=== PATIENT | male | born 1970 | race Caucasian/White ===

== ENCOUNTER 2022-10-10 12:51 | Inpatient (IN) ==
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
[2022-10-10 13:41] LABS: POC Calcium, Ionized 1.16 (1.16-1.32); POC Creatinine 0.5 (0.6-1.2); POC Potassium 4.1 (3.3-5.1)
[2022-10-10 14:12] LABS: Basophils # (Auto) 0.03 K/mcL (0.00-0.30); Basophils % (Auto) 0.2 % (0.0-2.0); Eosinophils # (Auto) 0.16 K/mcL (0.00-0.70); Eosinophils % (Auto) 1.3 % (0.0-7.0); Hematocrit 36.5 % (40.1-51.0); Hemoglobin 11.6 g/dL (13.7-17.5); Lymphocytes % (Auto) 5.8 % (15.5-49.0); Mean Cell Volume 92.4 fL (80.0-100.0); Mean Corpuscular HGB Conc 31.8 g/dL (31.0-36.0); Monocytes # (Auto) 0.64 K/mcL (0.10-0.90); Monocytes % (Auto) 5.3 % (1.0-12.0); Neutrophils % (Auto) 87.1 % (38.0-78.0); Platelet Count 388 K/mcL (140-440); RBC 3.95 M/mcL (4.63-6.08); Red Cell Distribution Width 16.1 % (11.5-14.5)
[2022-10-10 14:21] LABS: Erythrocyte Sedimentation Rate 73 mm/hr (0-20)
--- NOTE | 2022-10-10 14:28 | XRay Report ---
CLINICAL INFORMATION: Pain COMPARISON: 09/26/2022 FINDINGS: Total knee prostheses is anatomically aligned without loosening or infection. Moderate effusion present patellofemoral tibiofemoral joints with prepatellar soft tissue swelling. No osseous abnormality. IMPRESSION: Moderate effusion with prepatellar soft tissue swelling. Interpreted and Authenticated by: Alexandro Godfrey 10/10/22
[2022-10-10] MEDS ORDERED: 0.9 % SODIUM CHLORIDE 1,000 ML IV ONE (14:41)
[2022-10-10] MEDS ORDERED: ONDANSETRON 4 MG/2 ML VIAL IV PRN ×2 (16:43→22:16)
[2022-10-10] MEDS ORDERED: METHOCARBAMOL 1,000 MG/10 ML VIAL IV PRN ×2 (16:43→22:16)
[2022-10-10] MEDS ORDERED: LORazepam 2 MG/ML VIAL IV ONE (16:58)
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
[2022-10-10] MEDS: IPRATROPIUM/ALBUTEROL 3 ML AMPUL.NEB NEB PRN (20:02)
[2022-10-10] MEDS ORDERED: EPINEPHrine 1 MG/ML VIAL ONE (20:28)
[2022-10-10] MEDS ORDERED: ePHEDrine 50 MG/5 ML SYRINGE (ANEST) IV ONE (20:28)
[2022-10-10] MEDS ORDERED: DEXAMETHASONE 10 MG/ML VIAL ONE (20:28)
[2022-10-10] MEDS ORDERED: HYDROmorphone* 2 MG/ML VIAL ONE (20:28)
[2022-10-10] MEDS ORDERED: MIDAZOLAM 2 MG/2 ML VIAL ONE (20:28)
[2022-10-10] MEDS ORDERED: fentaNYL 100 MCG/2 ML VIAL IV ONE (20:28)
[2022-10-10] MEDS ORDERED: MAGNESIUM SULFATE 2 GM/50 ML BAG IV ONE (20:28)
[2022-10-10] MEDS ORDERED: KETAMINE 50 MG/ML Syringe (ANEST) IV ONE (20:28)
[2022-10-10] MEDS ORDERED: SUCCINYLCHOLINE 20 MG/ML ML IV ONE (20:28)
[2022-10-10] MEDS ORDERED: TRANEXAMIC ACID 1,000 MG/10 ML VIAL ONE ×2 (20:28→23:19)
[2022-10-10] MEDS ORDERED: LIDOCAINE HCL/PF 100 MG/5 ML SYRINGE IV ONE (20:28)
[2022-10-10] MEDS ORDERED: PHENYLephrine 1 MG/10 ML SYRINGE (ANEST) ONE (20:28)
[2022-10-10] MEDS ORDERED: ONDANSETRON 4 MG/2 ML VIAL ONE (20:28)
[2022-10-10] MEDS ORDERED: PROPOFOL 200 MG/20 ML VIAL IV ONE (20:28)
[2022-10-10] MEDS ORDERED: GLYCOPYRROLATE 0.2 MG/ML VIAL IV ONE (20:28)
[2022-10-10] MEDS ORDERED: VANCOMYCIN 1,000 MG in 0.9 % SODIUM CHLORIDE 250 ML IV ONE (20:53)
[2022-10-10] MEDS ORDERED: TOBRAMYCIN SULFATE 1.2 GM VIAL TOPICAL ONE (21:53)
[2022-10-10] MEDS ORDERED: VANCOMYCIN 1 GM VIAL TOPICAL SCH ×2 (22:00→22:15)
[2022-10-10] MEDS ORDERED: MEPERIDINE 25 MG/ML VIAL IV PRN (22:16)
[2022-10-10] MEDS ORDERED: fentaNYL 100 MCG/2 ML VIAL IV PRN (22:16)
[2022-10-10] MEDS ORDERED: FLUMAZENIL 0.1 MG/ML ML IV PRN (22:16)
[2022-10-10] MEDS ORDERED: LABETALOL 5 MG/ML ML IV PRN (22:16)
[2022-10-10] MEDS ORDERED: ACETAMINOPHEN 1,000 MG/100 ML BAG IV ONE ×2 (22:16→23:08)
[2022-10-10] MEDS ORDERED: LACTATED RINGERS 250 ML IV PRN (22:16)
[2022-10-10] MEDS ORDERED: IPRATROPIUM/ALBUTEROL 3 ML AMPUL.NEB NEB PRN (22:16)
[2022-10-10] MEDS ORDERED: METOPROLOL TARTRATE 5 MG/5 ML VIAL IV PRN (22:16)
[2022-10-10] MEDS ORDERED: NALOXONE HCL 0.4 MG/ML VIAL IV PRN (22:16)
[2022-10-10] MEDS ORDERED: HYDROmorphone 0.5 MG/0.5 ML SYRINGE IV PRN (22:16)
--- NOTE | 2022-10-10 22:23 | Brief Operative Note ---
Brief Operative Note Date of procedure: 10/10/22 Pre-op diagnosis: right total knee arthroplasty infection Post-op diagnosis: same Procedure: right total knee arthroplasty irrigation/debridement, poly exchanged, antibiotic bead placement Grafts/Implants: Yes Anesthesia: GETA and spinal Findings: infected total joint Complications: other Complications Description: cardiac arrest at induction Surgeon: Darrell Rivera Take Up Supervisor: [place] Perry Estimated blood loss (cc): 5 Tourniquet Time (Minutes): 75 Specimens Removed/Pathology: none sent Condition: stable Disposition: PACU
[2022-10-10] MEDS ORDERED: BISACODYL 10 MG SUPP.RECT PR PRN (22:30)
[2022-10-10] MEDS ORDERED: TRANEXAMIC ACID 1,000 MG/10 ML VIAL IV ONE (22:30)
[2022-10-10] MEDS ORDERED: LACTATED RINGERS 1,000 ML IV SCH (22:30)
[2022-10-10] MEDS ORDERED: FLEETS ADULT ENEMA PR PRN (22:30)
[2022-10-10] MEDS ORDERED: MAGNESIUM HYDROXIDE 30 ML ORAL.SUSP PO PRN (22:30)
[2022-10-10] MEDS ORDERED: POLYETHYLENE GLYCOL 3350 17 GM PACKET PO PRN (22:30)
[2022-10-10] MEDS ORDERED: BENZOCAINE/MENTHOL 1 LOZENGE PO PRN (22:30)
[2022-10-10] MEDS ORDERED: VANCOMYCIN PER PHARMACY IV ONE (22:36)
[2022-10-10] MEDS ORDERED: LORazepam 2 MG/ML VIAL IV PRN (22:38)
[2022-10-10] MEDS ORDERED: ALBUTEROL SULFATE 60 PUFF INHALER IH PRN (22:39)
[2022-10-10] MEDS ORDERED: ACETAMINOPHEN 500 MG TABLET PO PRN (22:39)
[2022-10-10] MEDS: ACETAMINOPHEN 500 MG TABLET PO SCH (23:17)
[2022-10-11] MEDS: 0.9 % SODIUM CHLORIDE 10 ML SYRINGE IV SCH ×7 (01:22→21:43)
[2022-10-11] MEDS: HYDROmorphone 1 MG/ML SYRINGE IV PRN ×4 (01:46→11:24)
[2022-10-11] MEDS: LACTATED RINGERS 1,000 ML IV SCH ×4 (01:55→19:12)
--- NOTE | 2022-10-11 01:55 | XRay Report ---
CLINICAL INFORMATION: Cardiorespiratory arrest COMPARISON: None. TECHNIQUE: Portable FINDINGS: Heart is markedly enlarged. Mediastinum is unremarkable. Pulmonary vessels are equivocally distended-film taken with suboptimal inspiratory result. Mild perihilar airspace disease noted. There is minor bibasilar atelectasis. No effusions. MALUNIFIED old mid right clavicular fracture noted. IMPRESSION: Marked cardiomegaly. Mild perihilar airspace disease may represent edema from CHF or developing ARDS Interpreted and Authenticated by: Alexandro Godfrey 10/11/22
--- NOTE | 2022-10-11 01:57 | XRay Report ---
CLINICAL INFORMATION: Increasing pain. COMPARISON: Postoperative knee film 10/10/2022 FINDINGS: Total knee prostheses are anatomically aligned without loosening. Multiple antibiotic beads now present in the patellofemoral and tibiofemoral joints following drainage of effusion. Septic arthritis is presumed. Periarticular soft tissue swelling noted. IMPRESSION: Postoperative changes as described Interpreted and Authenticated by: Alexandro Godfrey 10/11/22
[2022-10-11 02:27] LABS: Basophils # (Auto) 0.01 K/mcL (0.00-0.30); Basophils % (Auto) 0.1 % (0.0-2.0); Eosinophils # (Auto) 0.01 K/mcL (0.00-0.70); Eosinophils % (Auto) 0.1 % (0.0-7.0); Hematocrit 33.1 % (40.1-51.0); Hemoglobin 10.7 g/dL (13.7-17.5); Lymphocytes # (Auto) 0.48 K/mcL (1.50-4.80); Lymphocytes % (Auto) 3.4 % (15.5-49.0); Mean Corpuscular HGB Conc 32.3 g/dL (31.0-36.0); Monocytes # (Auto) 0.41 K/mcL (0.10-0.90); Monocytes % (Auto) 2.9 % (1.0-12.0); Neutrophils % (Auto) 92.9 % (38.0-78.0); Platelet Count 395 K/mcL (140-440); RBC 3.56 M/mcL (4.63-6.08); Red Cell Distribution Width 16.2 % (11.5-14.5)
[2022-10-11 02:43] LABS: ALT/SGPT 38 U/L (<40); AST/SGOT 57 U/L (<40); Albumin 3.4 gm/dL (3.2-5.2); Albumin/Globulin Ratio 0.9 (1.0-2.3); Alkaline Phosphatase 128 U/L (39-117); Bilirubin,Total 0.4 mg/dL (0.1-1.0); Blood Urea Nitrogen 18 mg/dL (6-20); Calcium 8.7 mg/dL (8.6-10.4); Carbon Dioxide 22 mmol/L (22-30); Chloride 96 mmol/L (96-108); Globulin 3.9 gm/dL (2.2-3.7); Glomerular Filtration Rate 69; Glucose 185 mg/dL (70-105)
[2022-10-11] MEDS ORDERED: LORazepam 2 MG/ML VIAL ONE (04:46)
[2022-10-11] MEDS ORDERED: LORazepam 2 MG/ML VIAL IV PRN (04:47)
[2022-10-11] MEDS ORDERED: VANCOMYCIN PER PHARMACY IV SCH (06:45)
--- NOTE | 2022-10-11 07:34 | Orthopedic Progress Note ---
SUBJECTIVE Subjective Patient information: Note initiated : 10/11/22 at 7:30 am Service Date, if different from initiated Date: [] Patient: Leonides Jenkins 52 y/o M admitted on 10/10/22 for increased knee pain. Chief Complaint: [no events overnight] Constitutional Vitals: Vital Signs Temp Pulse Resp BP Pulse Ox O2 Del Method O2 Flow Rate 97.7 F 78 18 111/88 98 Oxymask 5 10/11/22 04:01 10/11/22 06:09 10/11/22 06:09 10/11/22 06:01 10/11/22 06:09 10/11/22 06:01 10/11/22 06:01 Period Temp Pulse Resp BP Sys/Ward Pulse Ox O2 Del Method O2 Flow Rate Last 24 Hr 97.7 F-101.0 F 78-107 14-27 97-148/60-95 90-100 Nasal Cannula- Room Air 5-10 Intake and Output 10/10/22 10/11/22 10/11/22 19:59 03:59 11:59 Intake Total 1000 2150 Output Total 680 400 Balance 1000 1470 -400 Weight 244 lb 14.4 oz Intake & Output: Intake & Output 10/10/22 10/11/22 10/11/22 19:59 03:59 11:59 Intake Total 1000 2150 Output Total 680 400 Balance 1000 1470 -400 Weight 244 lb 14.4 oz Intake: IV 1000 350 Sodium Chloride 0.9% 1,000 ml @ 1000 Wide Open IV BOLUS ONE Rx#: [id number] Vancomycin 1,000 mg In Sodium 250 Chloride 0.9% 250 ml @ 250 mls/ hr IV ONCE ONE Rx#:[id number] IV - Manual Only 1800 Output: Urine Catheter Amount 650 400 Estimated Blood Loss 30 Other: Urine Appearance Clear Clear Uretheral (San) Clear Urine Color Yellow Yellow Uretheral (San) Yellow Additional findings Additional findings: asleep and will not wake up. right knee: dressing clean, dry and intact. foot warm well perfused OBJ DATA Labs 10/11/22 01:47 10/11/22 01:47 Labs: Abnormal Lab Results 10/11/22 10/11/22 10/11/22 01:47 01:47 01:47 WBC 14.0 H RBC 3.56 L Hgb 10.7 L Hct 33.1 L POC Hct RDW 16.2 H Immature Gran % (Auto) 0.6 H Neut % (Auto) 92.9 H Lymph % (Auto) 3.4 L Lymph # (Auto) 0.48 L Immature Gran # 0.09 H Absolute Neutrophils 12.98 H ESR Sodium 132 L POC Creatinine Glucose 185 H POC Glucose AST 57 H Alkaline Phosphatase 128 H Troponin T 0.04 H* C-Reactive Protein Globulin 3.9 H Albumin/Globulin Ratio 0.9 L 10/10/22 10/10/22 10/10/22 13:36 13:31 13:31 WBC 12.0 H RBC 3.95 L Hgb 11.6 L Hct 36.5 L POC Hct 38.0 L RDW 16.1 H Immature Gran % (Auto) Neut % (Auto) 87.1 H Lymph % (Auto) 5.8 L Lymph # (Auto) 0.70 L Immature Gran # Absolute Neutrophils 10.45 H ESR 73 H Sodium POC Creatinine 0.5 L Glucose POC Glucose 147 H AST Alkaline Phosphatase Troponin T C-Reactive Protein 29.70 H Globulin Albumin/Globulin Ratio Meds: Medications Acetaminophen (Acetaminophen 500 Mg Tablet) 1,000 mg PO Q8H JAYJAY; Protocol Last Admin: 10/10/22 23:17 Dose: Not Given Albuterol Sulfate (Albuterol Sulfate 60 Puff Inhaler) 2 puff IH Q4HP PRN PRN Reason: for dyspnea Albuterol/Ipratropium (Ipratropium/Albuterol 3 Ml Ampul.Neb) 3 ml NEB Q4HP PRN PRN Reason: Shortness Of Breath/ Pre-op Last Admin: 10/10/22 20:02 Dose: 3 ml Aspirin (Aspirin 81 Mg Tab.Chew) 81 mg CHEWED BID [facility] Bisacodyl (Bisacodyl 10 Mg Supp.Rect) 10 mg TX Q2-3DAYS PRN PRN Reason: Constipation Docusate Sodium (Docusate Sodium 100 Mg Capsule) 100 mg PO BID [facility] Duloxetine HCl (Duloxetine 30 Mg Capsule) 30 mg PO QDAY [facility] Hydrochlorothiazide (Hydrochlorothiazide 12.5 Mg Capsule) 12.5 mg PO DAILY [facility] Hydromorphone HCl (Hydromorphone 1 Mg/Ml Syringe) 0.5 - 2 mg IV Q2HP PRN; Protocol PRN Reason: Per Pain Protocol Last Admin: 10/11/22 03:54 Dose: 1 mg Hydroxyzine HCl (Hydroxyzine 25 Mg Tablet) 50 mg PO HS [facility] Lactated Ringer's (Lactated Ringers) 1,000 mls @ 100 mls/hr IV .Q10H [facility] Last Admin: 10/11/22 01:55 Dose: 100 mls/hr Vancomycin HCl 1,500 mg/ (Sodium Chloride) 500 mls @ 333.3 mls/hr IV Q12H [facility] Lisinopril (Lisinopril 20 Mg Tablet) 20 mg PO DAILY JAYJAY Lorazepam (Lorazepam 2 Mg/Ml Vial) 0 mg IV Q1HP PRN; Protocol PRN Reason: Alcohol Withdrawal/Assess CIWA Magnesium Hydroxide (Magnesium Hydroxide 30 Ml Oral.Susp) 30 ml PO BIDP PRN PRN Reason: Constipation Methocarbamol (Methocarbamol 750 Mg Tablet) 750 mg PO Q6HP PRN PRN Reason: Muscle Spasm Omeprazole (Omeprazole 20 Mg Capsule) 20 mg PO QAMAC [facility] Ondansetron HCl (Ondansetron 4 Mg/2 Ml Vial) 4 mg IV Q4HP PRN; Protocol PRN Reason: Nausea And Vomiting Oxycodone HCl (Oxycodone Hcl 5 Mg Tablet) 10 - 20 mg PO Q4HP PRN; Protocol PRN Reason: Pain Polyethylene Glycol (Polyethylene Glycol 3350 17 Gm Packet) 17 gm PO DAILYP PRN PRN Reason: Constipation Senna (Sennosides 1 Tablet) 2 tab PO HS [facility] Sodium Biphosphate/Sodium Phosphate (Fleets Adult Enema) 1 dose TX Q3-4DAYS PRN PRN Reason: Constipation Sodium Chloride (0.9 % Sodium Chloride 10 Ml Syringe) 10 ml IV Q8 [facility] Last Admin: 10/11/22 05:28 Dose: Not Given Sodium Chloride (0.9 % Sodium Chloride 10 Ml Syringe) 10 ml IV Q8 [facility] Last Admin: 10/11/22 05:35 Dose: 10 ml Throat Lozenges (Benzocaine/Menthol 1 Lozenge) 1 lozenge PO PRN PRN PRN Reason: Sore Throat Vancomycin HCl (Vancomycin Per Pharmacy) 1 order IV UD [facility]; Protocol A/P Assessment and plan (1) Postoperative infection of knee: Assessment and plan: POD 1 s/p I&D right total knee arthroplasty infection, poly exchange, antibiotic bead placement -- weight bearing with walker only. No aggressive ROM -- IV antibiotics- vancomycin. cultures are not in the system but multiple sets taken. Will f/u on them as this dictates treatment -- CIWA protocol reason for patient sleeping this AM -- Hospitalist consulted to manage medical aspect as patient did have cardiac arrest in the OR. will f/u with them today --dispo: pending Status: Acute Time Spent With Patient Time: Total time spent is greater than 50% in coordination of care (as documented) at patient's floor/unit and/or counseling patient:
[2022-10-11] MEDS: ACETAMINOPHEN 500 MG TABLET PO SCH ×3 (07:46→21:42)
[2022-10-11] MEDS: OMEPRAZOLE 20 MG CAPSULE PO SCH (07:46)
[2022-10-11] MEDS ORDERED: VANCOMYCIN 1,000 MG in 0.9 % SODIUM CHLORIDE 250 ML IV SCH (09:00)
[2022-10-11] MEDS ORDERED: LISINOPRIL/HCTZ 20/12.5MG TABLET PO SCH (09:00)
[2022-10-11 09:12] LABS: Appearance,Synovial Fluid Cloudy; Color,Synovial Fluid Orange; Lymphocytes,Synovial Fluid 3 %; Neutrophils,Synovial Fluid 93 % (0-25); Nucleated Cells,Synovial Fld 95520 /cumm; Other Cells,Synovial Fluid 4 %
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
[2022-10-11] MEDS ORDERED: IOPAMIDOL 100 ML BOTTLE IV ONE (09:29)
[2022-10-11] MEDS: LISINOPRIL 20 MG TABLET PO SCH (10:11)
[2022-10-11] MEDS: DULoxetine 30 MG CAPSULE PO SCH (10:11)
[2022-10-11] MEDS: VANCOMYCIN 1,500 MG in 0.9 % SODIUM CHLORIDE 500 ML IV SCH ×2 (10:11→21:43)
[2022-10-11] MEDS: DOCUSATE SODIUM 100 MG CAPSULE PO SCH ×2 (10:11→21:42)
[2022-10-11] MEDS: ASPIRIN 81 MG TAB.CHEW CHEWED SCH ×2 (10:11→21:41)
[2022-10-11] MEDS: HYDROCHLOROTHIAZIDE 12.5 MG CAPSULE PO SCH (10:11)
--- NOTE | 2022-10-11 10:28 | Cat Scan Report ---
CLINICAL INFORMATION: Cardiac arrest COMPARISON: None. TECHNIQUE: 80ml of Isovue-370 were injected intravenously. Using SmartPrep to maximize pulmonary artery opacification, .625mm helical slices were obtained from the lung apices through the lung bases. Following reconstruction, 2.5 mm sagittal, coronal, and axial reformations were processed. The exam was reviewed at mediastinal, lung, and bone windows. The exam was performed using radiation dose optimization techniques including, but not limited to, automated exposure control, adjustment of the mA and/or kV according to patient size and use of iterative reconstruction technique. FINDINGS: Pulmonary parenchymal windows show vague perihilar groundglass airspace disease suspicious for edema. Small region of consolidated atelectasis is seen in the posterior right lower lobe and subsegmental atelectasis in the posterior right lower lobe. Small right pleural effusion noted. Mediastinal windows show the heart is moderately enlarged with extremely heavy fibrofatty and calcific plaque in all coronary arteries suggesting occlusive or subocclusive coronary artery disease. The pulmonary arteries are mildly enlarged suggesting congestive heart failure. No evidence of pulmonary embolus. Thoracic aorta is normal in diameter. There is no adenopathy in the mediastinal, hilar or axillary region. Small hiatal hernia noted.. Thyroid is unremarkable. Bones and soft tissues the chest wall show no abnormality. show no osseous abnormalities. Images should superior abdomen are unremarkable. IMPRESSION: 1. Mild perihilar edema with moderate cardiomegaly and pulmonary vascular congestion all compatible with mild CHF. ARDS and aspiration are possible, but less likely. Please correlate with other clinical information supportive or refutive of CHF including BNP. 2. Consolidated atelectasis posterior basilar segment right lower lobe with subsegmental atelectasis throughout the posterior lower lobes with small right pleural effusion. 3. No evidence of pulmonary embolus. 4. 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 5. Moderate eventration posterior right hemidiaphragm. Interpreted and Authenticated by: Alexandro Godfrey 10/11/22
--- NOTE | 2022-10-11 10:38 | Cat Scan Report ---
CLINICAL INFORMATION: Abdominal pain. Cardiac arrest COMPARISON: None. TECHNIQUE: 80 cc of Isovue-370 were injected intravenously, and 60 seconds later, 0.625 mm helical slices were obtained from the mid heart through the subtrochanteric regions. Following reconstruction, 2.5 mm sagittal, coronal and axial reformatted images were processed and reviewed at bone, lung and soft tissue windows. Five minutes later, 0.625 mm helical slices were obtained from the mid heart through the kidneys and viewed at soft tissue windows.The exam was performed using radiation dose optimization techniques including, but not limited to, automated exposure control, adjustment of the mA and/or kV according to patient size and use of iterative reconstruction technique. FINDINGS: The gallbladder is mildly contracted with a small amount of sludge layering dependently. Gallbladder wall is normal thickness. Mild fatty change seen within the liver, but no focal hepatic lesions. Both kidneys, adrenal glands, spleen, pancreas are normal in size configuration and attenuation without focal lesion. The abdominal aorta is normal diameter with atherosclerotic plaque. 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 The patient be at risk for median arcuate ligament syndrome. The SMA, ANAHI, renal and iliac arteries are patent. No free air, free fluid or adenopathy. Pelvic images show San catheter properly positioned in the urinary bladder which is decompressed. No gross bladder abnormalities. The prostate and seminal vesicles are normal. There are multiple sigmoid diverticuli, but no evidence of diverticulitis. The remaining large bowel, inferior pericecal appendix, small bowel and stomach are grossly normal Bone windows show no osseous abnormality. L5-S1 moderate broad disc spur complex results in moderate IV foraminal narrowing exiting L5 nerve root impingement. Similar although less severe changes seen at L3-4 L4-5. IMPRESSION: 1. No acute intra-abdominal disease. 2. 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 Patient is at risk for median arcuate ligament syndrome. 3. Sigmoid diverticulosis, but no evidence of diverticulitis. Interpreted and Authenticated by: Alexandro Godfrey 10/11/22
[2022-10-11] MEDS: oxyCODONE IR 5 MG TABLET PO PRN ×3 (12:41→21:42)
[2022-10-11] MEDS: METHOCARBAMOL 750 MG TABLET PO PRN ×2 (12:41→21:48)
--- NOTE | 2022-10-11 13:36 | Internal Medicine Consult Note ---
HPI Date of Consult Consult Date: 10/11/22 Requesting physician: Vamsi Rivera Primary Care Provider: Geetha Garcia Consult Narrative Patient Information: Note initiated : 10/11/22 at 1:32 pm Service Date, if different from initiated Date: [] Patient: Leonides Jenkins 52 y/o M admitted on 10/10/22 for increased knee pain. Chief Complaint: [Cardiac arrest] 52-year-old obese male with a past medical history significant for hypertension, anxiety/depression, and alcohol abuse who presented to the hospital for elective surgery. The patient underwent right total knee arthroplasty, irrigation, and debridement with polyliner exchange and antibiotic bead placement. Postoperatively, after anesthesia induction, he briefly went into PEA arrest requiring cardiopulmonary resuscitation with ROSC. He was extubated overnight and this morning he was alert, oriented x3. Family were present at the bedside. The patient denies chest pain, shortness of breath or palpitations. There were concerns for mild alcohol withdrawal as he was placed on CIWA protocol and did receive Ativan. The hospitalist service was asked to consult to help medically manage the patient. Chief complaint: Post-op LOC Reason for consult: Cardiac arrest cc:: CC: Darrell Rivera MD Review of Systems All systems: reviewed and no additional remarkable complaints except as stated Constitutional Constitutional: Present as per HPI EENT Eyes: Present as per HPI; Absent blurry vision Cardiovascular Cardiovascular: Present as per HPI; Absent chest pain, dyspnea, dyspnea on exertion, leg edema or palpatations Respiratory Respiratory: Present as per HPI; Absent cough, dyspnea, dyspnea on exertion, wheezing or stridor Gastrointestinal Gastrointestinal: Present as per HPI; Absent abdominal pain, diarrhea, dysphagia, hematemesis, melena, nausea or vomiting Musculoskeletal Musculoskeletal: Present as per HPI; Absent joint swelling, limited range of motion, muscle cramps, muscle weakness or myalgias Integumentary Integumentary: Present as per HPI; Absent erythema, new lesions, rash or wounds Neurological Neurological: Present as per HPI; Absent abnormal gait, behavioral changes, focal weakness, headache(s), loss of vision, numbness, sensory deficit or syncope Endocrine Endocrine: Absent change in body appearance, fatigue or heat intolerance Hematologic/Lymphatic Hematologic/Lymphatic: Present as per HPI PFSH PFSH All Active Problems (Updated 10/11/22 @ 13:40 by Mamta Mejia MD) Alcohol withdrawal (Acute) Cardiac arrest (Acute) Postop check (Acute) Post-operative pain (Acute) Postoperative hemorrhage from incision (Acute) Acute knee pain (Acute) Postoperative infection of knee (Acute) Bilateral knee pain (Acute) Low back pain (Acute) Allergic reaction (Acute) Back pain (Acute) Other low back pain (Chronic) Depression (Chronic) Anxiety (Chronic) Gout (Chronic) Radiculopathy, lumbar region (Acute) Chronic pain (Chronic) Obesity (Chronic) Leg pain, left (Chronic) GERD (gastroesophageal reflux disease) (Chronic) Chronic right shoulder pain (Chronic) Chronic knee pain (Chronic) Chronic back pain (Chronic) Cellulitis of left index finger (Chronic) Cellulitis of left hand (Chronic) Cellulitis (Chronic) Carpal tunnel syndrome of right wrist (Chronic) Cardiac murmur (Chronic) Allergic reaction (Chronic) Arthritis (Chronic) Hypertension (Chronic) Asthma (Chronic) Hayfever (Chronic) Medical History Allergic reaction Anxiety Arthritis Asthma Cardiac murmur Carpal tunnel syndrome of right wrist Cellulitis Cellulitis of left hand Cellulitis of left index finger Chronic back pain Chronic knee pain Chronic pain Chronic right shoulder pain Depression GERD (gastroesophageal reflux disease) Gout Hayfever Hypertension Leg pain, left Obesity Other low back pain Radiculopathy, lumbar region Surgical History History of incision and drainage and partial amputation of fingers left hand due to abscess History of knee surgery History of shoulder surgery left Family History Grandmother Dementia Maternal Father High blood pressure Chronic pain Social History marital status: single education level: high school occupational status: employed occupation: Self Employed smoking status: Never smoker alcohol intake frequency: does not drink substance use type: marijuana MEDS/ALLERGIES Home Medications and Allergies Home Medications Medication Instructions Recorded Confirmed Type hydroxyzine HCl 50 mg tablet 50 mg PO HS #30 tabs 02/13/22 10/10/22 Rx clobetasol 0.05 % topical cream 1 applic topical BID #60 grams 03/20/22 10/10/22 Rx albuterol sulfate 90 mcg/actuation 2 puff PO Q4H PRN for dyspnea #8.5 03/27/22 10/10/22 Rx aerosol inhaler grams lisinopril 20 1 tab PO DAILY #90 tabs 04/13/22 10/10/22 Rx mg-hydrochlorothiazide 12.5 mg tablet omeprazole 20 mg capsule,delayed 20 mg PO QDAY #90 caps 04/13/22 10/10/22 Rx release multivitamin 1 tab PO QDAY 04/30/22 10/10/22 History omega 0-lke-bri-fish oil 1,200 mg 1 cap PO DAILY 04/30/22 10/10/22 History (144 mg-216 mg) capsule (Fish Oil) docusate sodium 100 mg capsule 100 mg PO BID #60 caps 05/12/22 10/10/22 Rx polyethylene glycol 3350 17 gram 17 gm PO DAILYP PRN Constipation 05/12/22 10/10/22 Rx oral powder packet (HealthyLax) #14 ea Liver Support 1 cap PO QDAY 08/31/22 10/10/22 History acetaminophen 500 mg tablet 1,000 mg PO Q8 PRN Pain 08/31/22 10/10/22 History duloxetine 30 mg capsule,delayed 30 mg PO QDAY 08/31/22 10/10/22 History release methocarbamol 500 mg tablet 500 mg PO TIDP PRN Muscle Spasm 09/06/22 10/10/22 Rx #30 tabs oxycodone 7.5 mg tablet,oral ONLY 7.5 - 15 mg PO Q4H PRN pain #60 ea 09/07/22 10/10/22 Rx (not for feeding tubes) hydrocodone 5 mg-acetaminophen 325 1 tab PO Q8H PRN pain #10 tabs 09/21/22 10/10/22 Rx mg tablet hydrocodone 5 mg-acetaminophen 325 1 tab PO Q8H PRN pain #10 tabs 09/21/22 10/10/22 Rx mg tablet Aspirin 81 mg PO DAILY 10/10/22 10/10/22 History Allergies Allergy/AdvReac Type Severity Reaction Status Date / Time Amoxicillin Allergy Mild Rash Verified 10/10/22 16:50 Nortriptyline AdvReac Mild Dizziness Verified 09/21/22 19:56 EXAM Constitutional Vitals: Temp Pulse Resp BP Pulse Ox O2 Del Method O2 Flow Rate 98 F 83 20 121/86 95 Oxymask 5 10/11/22 08:42 10/11/22 08:42 10/11/22 08:42 10/11/22 07:01 10/11/22 08:42 10/11/22 06:01 10/11/22 06:01 General appearance: average body habitus Head Head exam: Present atraumatic, normal inspection and normocephalic Eye Eye exam: Present EOMI, normal appearance and PERRL; Absent conjunctival injection ENT ENT exam: Present normal exam; Absent mucous membranes dry Neck Neck exam: Present full ROM; Absent lymphadenopathy Respiratory Respiratory exam: Present normal respiratory exam and CTAB; Absent decreased breath sounds, respiratory distress or wheezes Cardiovascular Cardiovascular exam: Present normal rate and rhythm and RRR; Absent JVD GI/Abdominal GI/Abdominal exam: Present normal bowel sounds and soft; Absent diminished bowel sounds, distended, guarding, mass, rebound or tenderness Neurological Exam Neurological exam: Present alert, CN II-XII intact and oriented X3 Psychiatric Psychiatric exam: Present normal affect and normal mood Skin Skin exam: Present intact and warm; Absent erythema, pallor, petechiae or rash DATA Data Completed and Pending Labs: Labs from last 24 hours 10/11/22 10/11/22 10/11/22 01:47 01:47 01:47 WBC 14.0 H RBC 3.56 L Hgb 10.7 L Hct 33.1 L POC Hct MCV 93.0 MCH 30.1 MCHC 32.3 RDW 16.2 H Plt Count 395 MPV 9.0 Immature Gran % (Auto) 0.6 H Neut % (Auto) 92.9 H Lymph % (Auto) 3.4 L [place] % (Auto) 2.9 Eos % (Auto) 0.1 Baso % (Auto) 0.1 Lymph # (Auto) 0.48 L [place] # (Auto) 0.41 Eos # (Auto) 0.01 Baso # (Auto) 0.01 Immature Gran # 0.09 H Absolute Neutrophils 12.98 H ESR POC Sodium Sodium 132 L POC Potassium Potassium 4.6 POC Chloride Chloride 96 Carbon Dioxide 22 POC Total CO2 Anion Gap 14.0 POC BUN BUN 18 Creatinine 1.2 POC Creatinine GFR Calculation 69 Glucose 185 H POC Glucose Calcium 8.7 POC WB Ioniz Calcium Total Bilirubin 0.4 AST 57 H ALT 38 Alkaline Phosphatase 128 H Troponin T 0.04 H* C-Reactive Protein Total Protein 7.3 Albumin 3.4 Globulin 3.9 H Albumin/Globulin Ratio 0.9 L Synovial Source Synovial Color Synovial Appearance Synovial Tot Cell Ct Synovial Nuc Cells Synovial Neutrophils Synovial Lymphocytes Synovial Other Cells 10/10/22 10/10/22 10/10/22 21:12 13:36 13:31 WBC RBC Hgb Hct POC Hct 38.0 L MCV MCH MCHC RDW Plt Count MPV Immature Gran % (Auto) Neut % (Auto) Lymph % (Auto) [place] % (Auto) Eos % (Auto) Baso % (Auto) Lymph # (Auto) [place] # (Auto) Eos # (Auto) Baso # (Auto) Immature Gran # Absolute Neutrophils ESR POC Sodium 137 Sodium POC Potassium 4.1 Potassium POC Chloride 102 Chloride Carbon Dioxide POC Total CO2 24.0 Anion Gap POC BUN 16 BUN Creatinine POC Creatinine 0.5 L GFR Calculation Glucose POC Glucose 147 H Calcium POC WB Ioniz Calcium 1.16 Total Bilirubin AST ALT Alkaline Phosphatase Troponin T C-Reactive Protein 29.70 H Total Protein Albumin Globulin Albumin/Globulin Ratio Synovial Source Right knee Synovial Color [place] Synovial Appearance Cloudy Synovial Tot Cell Ct 100 Synovial Nuc Cells [id number] Synovial Neutrophils 93 H Synovial Lymphocytes 3 Synovial Other Cells 4 10/10/22 13:31 WBC 12.0 H RBC 3.95 L Hgb 11.6 L Hct 36.5 L POC Hct MCV 92.4 MCH 29.4 MCHC 31.8 RDW 16.1 H Plt Count 388 MPV 9.0 Immature Gran % (Auto) 0.3 Neut % (Auto) 87.1 H Lymph % (Auto) 5.8 L [place] % (Auto) 5.3 Eos % (Auto) 1.3 Baso % (Auto) 0.2 Lymph # (Auto) 0.70 L [place] # (Auto) 0.64 Eos # (Auto) 0.16 Baso # (Auto) 0.03 Immature Gran # 0.04 Absolute Neutrophils 10.45 H ESR 73 H POC Sodium Sodium POC Potassium Potassium POC Chloride Chloride Carbon Dioxide POC Total CO2 Anion Gap POC BUN BUN Creatinine POC Creatinine GFR Calculation Glucose POC Glucose Calcium POC WB Ioniz Calcium Total Bilirubin AST ALT Alkaline Phosphatase Troponin T C-Reactive Protein Total Protein Albumin Globulin Albumin/Globulin Ratio Synovial Source Synovial Color Synovial Appearance Synovial Tot Cell Ct Synovial Nuc Cells Synovial Neutrophils Synovial Lymphocytes Synovial Other Cells Preliminary micro results at discharge 10/10/22 13:39 Gram Stain - Preliminary Knee - Right A/P Assessment and plan (1) Cardiac arrest: Status: Acute (2) Alcohol withdrawal: Status: Acute (3) Post-operative pain: Status: Acute Narrative A/P Narrative: #Cardiac arrest -It is unclear if there is a cardiopulmonary process. The patient did have CTA chest which was negative for PE, or aortic disease. Initial cardiac enzymes were unrevealing. TTE is pending. The patient did drink heavily prior to surgery and this was likely component of withdrawal as the achieve ROSC quite quickly. -Monitor and replete electrolytes aggressively, monitor on telemetry #EtOH abuse -The patient's AST and ALT pattern is consistent with alcohol abuse. We will continue to keep the patient on CIWA protocol #R knee infection -Postoperative care per orthopedic surgery. Time Spent With Patient Time: Total time spent is greater than 50% in coordination of care (as documented) at patient's floor/unit and/or counseling patient: Subsequent: Total time with patient: 50 - 65 Minutes
[2022-10-11] MEDS ORDERED: AZITHROMYCIN 250 MG TABLET PO ONE ×2 (14:00→15:00)
[2022-10-11] MEDS: cefTRIAXone 1 GM VIAL IV SCH (14:19)
[2022-10-11] MEDS: LORazepam 2 MG/ML VIAL IV PRN ×2 (14:39→19:30)
[2022-10-11] MEDS: SENNOSIDES 1 TABLET PO SCH (21:42)
[2022-10-11] MEDS: hydrOXYzine 25 MG TABLET PO SCH (21:47)
[2022-10-12] MEDS: LORazepam 2 MG/ML VIAL IV PRN (03:09)
[2022-10-12] MEDS: oxyCODONE IR 5 MG TABLET PO PRN ×5 (03:14→21:09)
[2022-10-12] MEDS: LACTATED RINGERS 1,000 ML IV SCH ×3 (04:03→23:30)
[2022-10-12] MEDS: 0.9 % SODIUM CHLORIDE 10 ML SYRINGE IV SCH ×8 (04:55→21:10)
[2022-10-12] MEDS: ACETAMINOPHEN 500 MG TABLET PO SCH ×3 (05:14→23:06)
[2022-10-12] MEDS ORDERED: 0.9 % SODIUM CHLORIDE 10 ML SYRINGE IV PRN (06:59)
--- NOTE | 2022-10-12 07:09 | Orthopedic Progress Note ---
SUBJECTIVE Subjective Patient information: Note initiated : 10/12/22 at 7:03 am Service Date, if different from initiated Date: [] Patient: Leonides Jenkins 52 y/o M admitted on 10/10/22 for increased knee pain. Chief Complaint: [transitioned to pcu yesterday. no acute events.] Constitutional Vitals: Vital Signs Temp Pulse Resp BP Pulse Ox O2 Del Method O2 Flow Rate 97.5 F 96 H 19 145/88 96 Oxymask 4 10/12/22 04:01 10/12/22 06:32 10/12/22 06:32 10/12/22 06:01 10/12/22 06:32 10/12/22 06:01 10/12/22 06:01 Period Temp Pulse Resp BP Sys/Ward Pulse Ox O2 Del Method O2 Flow Rate Last 24 Hr 96.2 F-98.3 F 76-96 14-27 88-145/58-88 87-98 Nasal Cannula- Oxymask 1-5 Intake and Output 10/11/22 10/12/22 10/12/22 19:59 03:59 11:59 Intake Total 3020 1900 Output Total 800 800 600 Balance 2220 1100 -600 Weight 244 lb 14.4 oz 256 lb 3.52 oz Intake & Output: Intake & Output 10/11/22 10/12/22 10/12/22 19:59 03:59 11:59 Intake Total 3020 1900 Output Total 800 800 600 Balance 2220 1100 -600 Weight 244 lb 14.4 oz 256 lb 3.52 oz Intake: IV 500 1500 Lactated Ringers 1,000 ml @ 100 1000 mls/hr IV .Q10H [facility] Rx#: [id number] Vancomycin 1,500 mg In Sodium 500 500 Chloride 0.9% 500 ml @ 333.3 mls/hr IV Q12H [facility] Rx#: [id number] Oral 2520 400 Output: Urine Catheter Amount 800 800 600 Other: Meal Dinner Dinner Percent of Meal Consumed 50% 50% Feeding Ability Independent Independent Urine Appearance Cloudy Clear Clear Uretheral (San) Clear Urine Color Light Elizabeth Yellow Yellow Uretheral (San) Light Elizabeth Urine Odor Normal Normal Additional findings Additional findings: asleep, difficult to awake right knee: dressing clean dry and intact. foot warm well perfused. OBJ DATA Labs 10/11/22 01:47 10/11/22 01:47 Labs: Abnormal Lab Results 10/12/22 10/11/22 10/11/22 05:10 01:47 01:47 WBC RBC Hgb Hct POC Hct RDW Immature Gran % (Auto) Neut % (Auto) Lymph % (Auto) Lymph # (Auto) Immature Gran # Absolute Neutrophils ESR Sodium 132 L POC Creatinine Glucose 185 H POC Glucose AST 57 H Alkaline Phosphatase 128 H Troponin T 0.04 H* C-Reactive Protein 23.00 H Globulin 3.9 H Albumin/Globulin Ratio 0.9 L Synovial Neutrophils 10/11/22 10/10/22 10/10/22 01:47 21:12 13:36 WBC 14.0 H RBC 3.56 L Hgb 10.7 L Hct 33.1 L POC Hct 38.0 L RDW 16.2 H Immature Gran % (Auto) 0.6 H Neut % (Auto) 92.9 H Lymph % (Auto) 3.4 L Lymph # (Auto) 0.48 L Immature Gran # 0.09 H Absolute Neutrophils 12.98 H ESR Sodium POC Creatinine 0.5 L Glucose POC Glucose 147 H AST Alkaline Phosphatase Troponin T C-Reactive Protein Globulin Albumin/Globulin Ratio Synovial Neutrophils 93 H 10/10/22 10/10/22 13:31 13:31 WBC 12.0 H RBC 3.95 L Hgb 11.6 L Hct 36.5 L POC Hct RDW 16.1 H Immature Gran % (Auto) Neut % (Auto) 87.1 H Lymph % (Auto) 5.8 L Lymph # (Auto) 0.70 L Immature Gran # Absolute Neutrophils 10.45 H ESR 73 H Sodium POC Creatinine Glucose POC Glucose AST Alkaline Phosphatase Troponin T C-Reactive Protein 29.70 H Globulin Albumin/Globulin Ratio Synovial Neutrophils Meds: Medications Acetaminophen (Acetaminophen 500 Mg Tablet) 1,000 mg PO Q8H [facility]; Protocol Last Admin: 10/12/22 05:14 Dose: 1,000 mg Albuterol Sulfate (Albuterol Sulfate 60 Puff Inhaler) 2 puff IH Q4HP PRN PRN Reason: for dyspnea Albuterol/Ipratropium (Ipratropium/Albuterol 3 Ml Ampul.Neb) 3 ml NEB Q4HP PRN PRN Reason: Shortness Of Breath/ Pre-op Last Admin: 10/10/22 20:02 Dose: 3 ml Aspirin (Aspirin 81 Mg Tab.Chew) 81 mg CHEWED BID [facility] Last Admin: 10/11/22 21:41 Dose: 81 mg Azithromycin (Azithromycin 250 Mg Tablet) 250 mg PO DAILY [facility]; Protocol Stop: 10/15/22 09:01 Bisacodyl (Bisacodyl 10 Mg Supp.Rect) 10 mg NV Q2-3DAYS PRN PRN Reason: Constipation Ceftriaxone Sodium (Ceftriaxone 1 Gm Vial) 1 gm IV Q24H [facility]; Protocol Last Admin: 10/11/22 14:19 Dose: 1 gm Docusate Sodium (Docusate Sodium 100 Mg Capsule) 100 mg PO BID [facility] Last Admin: 10/11/22 21:42 Dose: 100 mg Duloxetine HCl (Duloxetine 30 Mg Capsule) 30 mg PO QDAY [facility] Last Admin: 10/11/22 10:11 Dose: 30 mg Heparin Sodium (Porcine) (Heparin Flush 10 Units/Ml 5 Ml Syringe) 2 ml IV Q12 [facility] Hydrochlorothiazide (Hydrochlorothiazide 12.5 Mg Capsule) 12.5 mg PO DAILY [facility] Last Admin: 10/11/22 10:11 Dose: 12.5 mg Hydromorphone HCl (Hydromorphone 1 Mg/Ml Syringe) 0.5 - 2 mg IV Q2HP PRN; Protocol PRN Reason: Per Pain Protocol Last Admin: 10/11/22 11:24 Dose: 2 mg Hydroxyzine HCl (Hydroxyzine 25 Mg Tablet) 50 mg PO HS [facility] Last Admin: 10/11/22 21:47 Dose: 50 mg Lactated Ringer's (Lactated Ringers) 1,000 mls @ 100 mls/hr IV .Q10H [facility] Last Admin: 10/12/22 04:03 Dose: Not Given Vancomycin HCl 1,500 mg/ (Sodium Chloride) 500 mls @ 333.3 mls/hr IV Q12H [facility] Last Infusion: 10/11/22 23:46 Dose: Infused Lisinopril (Lisinopril 20 Mg Tablet) 20 mg PO DAILY [facility] Last Admin: 10/11/22 10:11 Dose: 20 mg Lorazepam (Lorazepam 2 Mg/Ml Vial) 0 mg IV Q1HP PRN; Protocol PRN Reason: Alcohol Withdrawal/Assess CIWA Last Admin: 10/12/22 03:09 Dose: 4 mg Magnesium Hydroxide (Magnesium Hydroxide 30 Ml Oral.Susp) 30 ml PO BIDP PRN PRN Reason: Constipation Methocarbamol (Methocarbamol 750 Mg Tablet) 750 mg PO Q6HP PRN PRN Reason: Muscle Spasm Last Admin: 10/11/22 21:48 Dose: 750 mg Omeprazole (Omeprazole 20 Mg Capsule) 20 mg PO QAMAC [facility] Last Admin: 10/11/22 07:46 Dose: 20 mg Ondansetron HCl (Ondansetron 4 Mg/2 Ml Vial) 4 mg IV Q4HP PRN; Protocol PRN Reason: Nausea And Vomiting Oxycodone HCl (Oxycodone Hcl 5 Mg Tablet) 10 - 20 mg PO Q4HP PRN; Protocol PRN Reason: Pain Last Admin: 10/12/22 03:14 Dose: 10 mg Polyethylene Glycol (Polyethylene Glycol 3350 17 Gm Packet) 17 gm PO DAILYP PRN PRN Reason: Constipation Senna (Sennosides 1 Tablet) 2 tab PO HS [facility] Last Admin: 10/11/22 21:42 Dose: 2 tab Sodium Biphosphate/Sodium Phosphate (Fleets Adult Enema) 1 dose NV Q3-4DAYS PRN PRN Reason: Constipation Sodium Chloride (0.9 % Sodium Chloride 10 Ml Syringe) 10 ml IV Q8 [facility] Last Admin: 10/12/22 04:55 Dose: Not Given Sodium Chloride (0.9 % Sodium Chloride 10 Ml Syringe) 10 ml IV Q8 [facility] Last Admin: 10/12/22 04:55 Dose: 10 ml Sodium Chloride (0.9 % Sodium Chloride 10 Ml Syringe) 10 ml IV Q12 [facility] Sodium Chloride (0.9 % Sodium Chloride 10 Ml Syringe) 10 ml IV UD PRN PRN Reason: FLUSH Throat Lozenges (Benzocaine/Menthol 1 Lozenge) 1 lozenge PO PRN PRN PRN Reason: Sore Throat Vancomycin HCl (Vancomycin Per Pharmacy) 1 order IV UD [facility]; Protocol A/P Assessment and plan (1) Postoperative infection of knee: Assessment and plan: POD2 s/p I&D total knee arthroplasty infection, poly exchange, antibiotic bead placement -- will make him 50% weight bearing, hinged knee brace with ambulation -- blood culture negative to date, synovial fluid 95K nucleated cells, gram stain with gram positive in clusters --------will have PICC line placed, consult with ID, continue vancomycin for now, follow cultures -- CIWA - alcohol withdrawl -- IV drug use will make disposition bit more complicated as he will have to be placed in rehab for 6 weeks. -- would prefer d/c jackeline if ok with Hospitalist Status: Acute Time Spent With Patient Time: Total time spent is greater than 50% in coordination of care (as documented) at patient's floor/unit and/or counseling patient:
[2022-10-12] MEDS: HYDROCHLOROTHIAZIDE 12.5 MG CAPSULE PO SCH (08:18)
[2022-10-12] MEDS: OMEPRAZOLE 20 MG CAPSULE PO SCH (08:18)
[2022-10-12] MEDS: LISINOPRIL 20 MG TABLET PO SCH (08:18)
[2022-10-12] MEDS: ASPIRIN 81 MG TAB.CHEW CHEWED SCH ×2 (08:18→21:09)
[2022-10-12] MEDS: DOCUSATE SODIUM 100 MG CAPSULE PO SCH ×2 (08:18→21:09)
[2022-10-12] MEDS: AZITHROMYCIN 250 MG TABLET PO SCH (08:18)
[2022-10-12] MEDS: cefTRIAXone 1 GM VIAL IV SCH (08:39)
[2022-10-12] MEDS: DULoxetine 30 MG CAPSULE PO SCH (09:00)
--- NOTE | 2022-10-12 09:23 | Internal Med Progress Note ---
SUBJECTIVE Subjective Patient information: Note initiated : 10/12/22 at 9:21 am Service Date, if different from initiated Date: [] Patient: Leonides Jenkins 52 y/o M admitted on 10/10/22 for increased knee pain. Chief Complaint: [Cardiac arrest] Principal diagnosis: EtOH withdrawal Interval history: The patient was scoring quite high last night. Per my discussion with RN, he has received a total of 8 mg of IV Ativan since yesterday evening. He received 4 mg IV this morning. Discussed the case with the family were present at the bedside. The patient was sedated this morning. Constitutional Vitals: Vital Signs Temp Pulse Resp BP Pulse Ox O2 Del Method O2 Flow Rate 97.5 F 96 H 19 145/88 96 Oxymask 4 10/12/22 04:01 10/12/22 06:32 10/12/22 06:32 10/12/22 06:01 10/12/22 06:32 10/12/22 06:01 10/12/22 06:01 Period Temp Pulse Resp BP Sys/Ward Pulse Ox O2 Del Method O2 Flow Rate Last 24 Hr 96.2 F-98.3 F 76-96 14-27 101-145/64-88 87-98 Nasal Cannula-Oxymask 1-5 Intake and Output 10/11/22 10/12/22 10/12/22 19:59 03:59 11:59 Intake Total 3020 1900 Output Total 800 800 600 Balance 2220 1100 -600 Weight 111.085 kg 116.219 kg Intake & Output: Intake & Output 10/11/22 10/12/22 10/12/22 19:59 03:59 11:59 Intake Total 3020 1900 Output Total 800 800 600 Balance 2220 1100 -600 Weight 111.085 kg 116.219 kg Intake: IV 500 1500 Lactated Ringers 1,000 ml @ 100 1000 mls/hr IV .Q10H [facility] Rx#: [id number] Vancomycin 1,500 mg In Sodium 500 500 Chloride 0.9% 500 ml @ 333.3 mls/hr IV Q12H [facility] Rx#: [id number] Oral 2520 400 Output: Urine Catheter Amount 800 800 600 Other: Meal Dinner Dinner Percent of Meal Consumed 50% 50% Feeding Ability Independent Independent Urine Appearance Cloudy Clear Clear Uretheral (San) Clear Urine Color Light Elizabeth Yellow Yellow Uretheral (San) Light Elizabeth Urine Odor Normal Normal Head Head exam: Present atraumatic and normal inspection Eye Eye exam: Present normal appearance ENT ENT exam: Present mucous membranes moist, normal exam and normal external ear exam Neck Neck exam: Present normal inspection Respiratory Respiratory exam: Present normal respiratory exam Cardiovascular Cardiovascular exam: Present normal rate and rhythm GI/Abdominal GI/Abdominal exam: Present normal bowel sounds Back Exam Back exam: Present normal inspection Neurological Exam Neurological exam: Absent alert Psychiatric Psychiatric exam: Absent agitated or anxious Skin Skin exam: Present intact and warm OBJ DATA Labs 10/11/22 01:47 10/11/22 01:47 Labs: Abnormal Lab Results 10/12/22 10/11/22 10/11/22 05:10 01:47 01:47 WBC RBC Hgb Hct POC Hct RDW Immature Gran % (Auto) Neut % (Auto) Lymph % (Auto) Lymph # (Auto) Immature Gran # Absolute Neutrophils ESR Sodium 132 L POC Creatinine Glucose 185 H POC Glucose AST 57 H Alkaline Phosphatase 128 H Troponin T 0.04 H* C-Reactive Protein 23.00 H Globulin 3.9 H Albumin/Globulin Ratio 0.9 L Synovial Neutrophils 10/11/22 10/10/22 10/10/22 01:47 21:12 13:36 WBC 14.0 H RBC 3.56 L Hgb 10.7 L Hct 33.1 L POC Hct 38.0 L RDW 16.2 H Immature Gran % (Auto) 0.6 H Neut % (Auto) 92.9 H Lymph % (Auto) 3.4 L Lymph # (Auto) 0.48 L Immature Gran # 0.09 H Absolute Neutrophils 12.98 H ESR Sodium POC Creatinine 0.5 L Glucose POC Glucose 147 H AST Alkaline Phosphatase Troponin T C-Reactive Protein Globulin Albumin/Globulin Ratio Synovial Neutrophils 93 H 10/10/22 10/10/22 13:31 13:31 WBC 12.0 H RBC 3.95 L Hgb 11.6 L Hct 36.5 L POC Hct RDW 16.1 H Immature Gran % (Auto) Neut % (Auto) 87.1 H Lymph % (Auto) 5.8 L Lymph # (Auto) 0.70 L Immature Gran # Absolute Neutrophils 10.45 H ESR 73 H Sodium POC Creatinine Glucose POC Glucose AST Alkaline Phosphatase Troponin T C-Reactive Protein 29.70 H Globulin Albumin/Globulin Ratio Synovial Neutrophils Meds: Medications Acetaminophen (Acetaminophen 500 Mg Tablet) 1,000 mg PO Q8H [facility]; Protocol Last Admin: 10/12/22 05:14 Dose: 1,000 mg Albuterol Sulfate (Albuterol Sulfate 60 Puff Inhaler) 2 puff IH Q4HP PRN PRN Reason: for dyspnea Albuterol/Ipratropium (Ipratropium/Albuterol 3 Ml Ampul.Neb) 3 ml NEB Q4HP PRN PRN Reason: Shortness Of Breath/ Pre-op Last Admin: 10/10/22 20:02 Dose: 3 ml Aspirin (Aspirin 81 Mg Tab.Chew) 81 mg CHEWED BID [facility] Last Admin: 10/12/22 08:18 Dose: 81 mg Azithromycin (Azithromycin 250 Mg Tablet) 250 mg PO DAILY [facility]; Protocol Stop: 10/15/22 09:01 Last Admin: 10/12/22 08:18 Dose: 250 mg Bisacodyl (Bisacodyl 10 Mg Supp.Rect) 10 mg OR Q2-3DAYS PRN PRN Reason: Constipation Ceftriaxone Sodium (Ceftriaxone 1 Gm Vial) 1 gm IV Q24H [facility]; Protocol Last Admin: 10/12/22 08:39 Dose: 1 gm Docusate Sodium (Docusate Sodium 100 Mg Capsule) 100 mg PO BID [facility] Last Admin: 10/12/22 08:18 Dose: 100 mg Duloxetine HCl (Duloxetine 30 Mg Capsule) 30 mg PO QDAY [facility] Last Admin: 10/12/22 09:00 Dose: 30 mg Heparin Sodium (Porcine) (Heparin Flush 10 Units/Ml 5 Ml Syringe) 2 ml IV Q12 [facility] Hydrochlorothiazide (Hydrochlorothiazide 12.5 Mg Capsule) 12.5 mg PO DAILY [facility] Last Admin: 10/12/22 08:18 Dose: 12.5 mg Hydromorphone HCl (Hydromorphone 1 Mg/Ml Syringe) 0.5 - 2 mg IV Q2HP PRN; Protocol PRN Reason: Per Pain Protocol Last Admin: 10/11/22 11:24 Dose: 2 mg Hydroxyzine HCl (Hydroxyzine 25 Mg Tablet) 50 mg PO HS [facility] Last Admin: 10/11/22 21:47 Dose: 50 mg Lactated Ringer's (Lactated Ringers) 1,000 mls @ 100 mls/hr IV .Q10H [facility] Last Admin: 10/12/22 04:03 Dose: Not Given Vancomycin HCl 1,500 mg/ (Sodium Chloride) 500 mls @ 333.3 mls/hr IV Q12H [facility] Last Infusion: 10/11/22 23:46 Dose: Infused Lisinopril (Lisinopril 20 Mg Tablet) 20 mg PO DAILY [facility] Last Admin: 10/12/22 08:18 Dose: 20 mg Lorazepam (Lorazepam 2 Mg/Ml Vial) 0 mg IV Q1HP PRN; Protocol PRN Reason: Alcohol Withdrawal/Assess CIWA Last Admin: 10/12/22 03:09 Dose: 4 mg Magnesium Hydroxide (Magnesium Hydroxide 30 Ml Oral.Susp) 30 ml PO BIDP PRN PRN Reason: Constipation Methocarbamol (Methocarbamol 750 Mg Tablet) 750 mg PO Q6HP PRN PRN Reason: Muscle Spasm Last Admin: 10/11/22 21:48 Dose: 750 mg Omeprazole (Omeprazole 20 Mg Capsule) 20 mg PO QAMAC [facility] Last Admin: 10/12/22 08:18 Dose: 20 mg Ondansetron HCl (Ondansetron 4 Mg/2 Ml Vial) 4 mg IV Q4HP PRN; Protocol PRN Reason: Nausea And Vomiting Oxycodone HCl (Oxycodone Hcl 5 Mg Tablet) 10 - 20 mg PO Q4HP PRN; Protocol PRN Reason: Pain Last Admin: 10/12/22 08:18 Dose: 10 mg Polyethylene Glycol (Polyethylene Glycol 3350 17 Gm Packet) 17 gm PO DAILYP PRN PRN Reason: Constipation Senna (Sennosides 1 Tablet) 2 tab PO HS [facility] Last Admin: 10/11/22 21:42 Dose: 2 tab Sodium Biphosphate/Sodium Phosphate (Fleets Adult Enema) 1 dose OR Q3-4DAYS PRN PRN Reason: Constipation Sodium Chloride (0.9 % Sodium Chloride 10 Ml Syringe) 10 ml IV Q8 [facility] Last Admin: 10/12/22 04:55 Dose: Not Given Sodium Chloride (0.9 % Sodium Chloride 10 Ml Syringe) 10 ml IV Q8 [facility] Last Admin: 10/12/22 04:55 Dose: 10 ml Sodium Chloride (0.9 % Sodium Chloride 10 Ml Syringe) 10 ml IV Q12 [facility] Sodium Chloride (0.9 % Sodium Chloride 10 Ml Syringe) 10 ml IV UD PRN PRN Reason: FLUSH Throat Lozenges (Benzocaine/Menthol 1 Lozenge) 1 lozenge PO PRN PRN PRN Reason: Sore Throat Vancomycin HCl (Vancomycin Per Pharmacy) 1 order IV UD [facility]; Protocol A/P Assessment and plan (1) Cardiac arrest: Status: Acute (2) Alcohol withdrawal: Status: Acute (3) Post-operative pain: Status: Acute Narrative A/P Narrative: #Cardiac arrest -CTA chest ruled out PE. TTE did not reveal any evidence of wall motion abnormalities and he has a preserved EF of 65%. -Continue empiric treatment for aspiration pneumonia with ceftriaxone and Zithromax -It is unclear if there is a cardiopulmonary process. The patient did have CTA chest which was negative for PE, or aortic disease. Initial cardiac enzymes were unrevealing. TTE is pending. The patient did drink heavily prior to surgery and this was likely component of withdrawal as the achieve ROSC quite quickly. -Monitor and replete electrolytes aggressively, monitor on telemetry #EtOH abuse -The patient's AST and ALT pattern is consistent with alcohol abuse. We will continue to keep the patient on CIWA protocol #R knee infection -PICC line order was placed and he is continuing vancomycin -Postoperative care per orthopedic surgery. Time Spent With Patient Time: Total time spent is greater than 50% in coordination of care (as documented) at patient's floor/unit and/or counseling patient: Subsequent: Total time with patient: 50 - 65 Minutes QUALITY VTE Deep Vein Thrombosis/Pulmonary Embolism Present on Admission: No
[2022-10-12] MEDS ORDERED: VANCOMYCIN 1,000 MG in 0.9 % SODIUM CHLORIDE 250 ML IV ONE (10:00)
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
[2022-10-12] MEDS: METHOCARBAMOL 750 MG TABLET PO PRN ×2 (15:33→21:09)
[2022-10-12] MEDS: VANCOMYCIN 1,500 MG in 0.9 % SODIUM CHLORIDE 500 ML IV SCH (15:47)
[2022-10-12] MEDS ORDERED: LORazepam 2 MG/ML VIAL IV PRN (17:41)
[2022-10-12] MEDS ORDERED: LORazepam 2 MG/ML VIAL ONE (18:18)
[2022-10-12] MEDS ORDERED: cefTRIAXone 1 GM VIAL IV SCH (20:23)
[2022-10-12] MEDS: SENNOSIDES 1 TABLET PO SCH (21:09)
[2022-10-12] MEDS: hydrOXYzine 25 MG TABLET PO SCH (21:09)
[2022-10-12] MEDS: VANCOMYCIN 1,250 MG in 0.9 % SODIUM CHLORIDE 500 ML IV SCH (21:10)
[2022-10-12] MEDS ORDERED: cefTRIAXone 1 GM VIAL IV ONE (22:15)
[2022-10-13] MEDS: LORazepam 2 MG/ML VIAL IV PRN ×5 (00:01→13:25)
[2022-10-13] MEDS: IPRATROPIUM/ALBUTEROL 3 ML AMPUL.NEB NEB PRN (04:44)
[2022-10-13] MEDS: 0.9 % SODIUM CHLORIDE 10 ML SYRINGE IV SCH ×8 (04:47→20:11)
[2022-10-13] MEDS: ACETAMINOPHEN 500 MG TABLET PO SCH ×6 (05:22→20:11)
[2022-10-13] MEDS: OMEPRAZOLE 20 MG CAPSULE PO SCH (07:39)
[2022-10-13] MEDS: cefTRIAXone 2 GM in DEXTROSE 5% IN WATER 50 ML IV SCH (08:38)
--- NOTE | 2022-10-13 08:51 | Internal Med Progress Note ---
SUBJECTIVE Subjective Patient information: Note initiated : 10/13/22 at 8:49 am Service Date, if different from initiated Date: [] Patient: Leonides Jenkins 52 y/o M admitted on 10/10/22 for increased knee pain. Chief Complaint: [Cardiac arrest] Principal diagnosis: EtOH withdrawal Interval history: The patient was moved out the ICU to [facility]. He remains quite somnolent as he needs IV Ativan for CIWA protocol. He is receiving beer as well. Constitutional Vitals: Vital Signs Temp Pulse Resp BP Pulse Ox O2 Del Method O2 Flow Rate 98.2 F 69 26 H 165/79 93 Oxymask 2 10/13/22 08:46 10/13/22 06:46 10/13/22 08:46 10/13/22 06:46 10/13/22 07:09 10/13/22 07:09 10/13/22 07:09 Period Temp Pulse Resp BP Sys/Ward Pulse Ox O2 Del Method O2 Flow Rate Last 24 Hr 97.3 F-99.5 F 69-90 18-28 162-186/79-108 83-98 Oxymask-Oxymask 2-2 Intake and Output 10/12/22 10/13/22 10/13/22 19:59 03:59 11:59 Intake Total 730 500 Output Total 1775 801 1 Balance -1045 -301 -1 Weight 112.582 kg Intake & Output: Intake & Output 10/12/22 10/13/22 10/13/22 19:59 03:59 11:59 Intake Total 730 500 Output Total 1775 801 1 Balance -1045 -301 -1 Weight 112.582 kg Intake: IV 250 500 Vancomycin 1,000 mg In Sodium 250 Chloride 0.9% 250 ml @ 250 mls/ hr IV ONCE ONE Rx#:[id number] Vancomycin 1,250 mg In Sodium 500 Chloride 0.9% 500 ml @ 333.3 mls/hr IV Q12H [facility] Rx#: [id number] Oral 480 Output: Void Amount 1775 800 # of times incontinent of urine 1 1 Other: Urine Appearance Clear Clear Urine Color Dark Yellow Dark Yellow Yellow Urine Odor Strong Strong # Voids 1 1 Head Head exam: Present atraumatic and normal inspection Eye Eye exam: Present normal appearance ENT ENT exam: Present mucous membranes moist, normal exam and normal external ear exam Neck Neck exam: Present normal inspection Respiratory Respiratory exam: Present normal respiratory exam Cardiovascular Cardiovascular exam: Present normal rate and rhythm GI/Abdominal GI/Abdominal exam: Present normal bowel sounds Back Exam Back exam: Present normal inspection Neurological Exam Neurological exam: Present alert and oriented X3 Skin Skin exam: Present intact and warm OBJ DATA Labs 10/11/22 01:47 10/11/22 01:47 Labs: Abnormal Lab Results 10/12/22 10/11/22 10/11/22 05:10 01:47 01:47 WBC RBC Hgb Hct POC Hct RDW Immature Gran % (Auto) Neut % (Auto) Lymph % (Auto) Lymph # (Auto) Immature Gran # Absolute Neutrophils ESR Sodium 132 L POC Creatinine Glucose 185 H POC Glucose AST 57 H Alkaline Phosphatase 128 H Troponin T 0.04 H* C-Reactive Protein 23.00 H Globulin 3.9 H Albumin/Globulin Ratio 0.9 L Synovial Neutrophils 10/11/22 10/10/22 10/10/22 01:47 21:12 13:36 WBC 14.0 H RBC 3.56 L Hgb 10.7 L Hct 33.1 L POC Hct 38.0 L RDW 16.2 H Immature Gran % (Auto) 0.6 H Neut % (Auto) 92.9 H Lymph % (Auto) 3.4 L Lymph # (Auto) 0.48 L Immature Gran # 0.09 H Absolute Neutrophils 12.98 H ESR Sodium POC Creatinine 0.5 L Glucose POC Glucose 147 H AST Alkaline Phosphatase Troponin T C-Reactive Protein Globulin Albumin/Globulin Ratio Synovial Neutrophils 93 H 10/10/22 10/10/22 13:31 13:31 WBC 12.0 H RBC 3.95 L Hgb 11.6 L Hct 36.5 L POC Hct RDW 16.1 H Immature Gran % (Auto) Neut % (Auto) 87.1 H Lymph % (Auto) 5.8 L Lymph # (Auto) 0.70 L Immature Gran # Absolute Neutrophils 10.45 H ESR 73 H Sodium POC Creatinine Glucose POC Glucose AST Alkaline Phosphatase Troponin T C-Reactive Protein 29.70 H Globulin Albumin/Globulin Ratio Synovial Neutrophils Meds: Medications Acetaminophen (Acetaminophen 500 Mg Tablet) 1,000 mg PO Q8H JAYJAY; Protocol Last Admin: 10/13/22 05:22 Dose: Not Given Acetaminophen (Acetaminophen 325 Mg Tablet) 1,000 mg PO TID JAYJAY; Protocol Albuterol Sulfate (Albuterol Sulfate 60 Puff Inhaler) 2 puff IH Q4HP PRN PRN Reason: for dyspnea Albuterol/Ipratropium (Ipratropium/Albuterol 3 Ml Ampul.Neb) 3 ml NEB Q4HP PRN PRN Reason: Shortness Of Breath/ Pre-op Last Admin: 10/13/22 04:44 Dose: 3 ml Aspirin (Aspirin 81 Mg Tab.Chew) 81 mg CHEWED BID [facility] Last Admin: 10/12/22 21:09 Dose: 81 mg Azithromycin (Azithromycin 250 Mg Tablet) 250 mg PO DAILY [facility]; Protocol Stop: 10/15/22 09:01 Last Admin: 10/12/22 08:18 Dose: 250 mg Bisacodyl (Bisacodyl 10 Mg Supp.Rect) 10 mg AR Q2-3DAYS PRN PRN Reason: Constipation Docusate Sodium (Docusate Sodium 100 Mg Capsule) 100 mg PO BID [facility] Last Admin: 10/12/22 21:09 Dose: 100 mg Duloxetine HCl (Duloxetine 30 Mg Capsule) 30 mg PO QDAY [facility] Last Admin: 10/12/22 09:00 Dose: 30 mg Heparin Sodium (Porcine) (Heparin Flush 10 Units/Ml 5 Ml Syringe) 2 ml IV Q12 [facility] Last Admin: 10/12/22 21:01 Dose: Not Given Hydrochlorothiazide (Hydrochlorothiazide 12.5 Mg Capsule) 12.5 mg PO DAILY [facility] Last Admin: 10/12/22 08:18 Dose: 12.5 mg Hydroxyzine HCl (Hydroxyzine 25 Mg Tablet) 50 mg PO HS [facility] Last Admin: 10/12/22 21:09 Dose: 50 mg Lactated Ringer's (Lactated Ringers) 1,000 mls @ 100 mls/hr IV .Q10H [facility] Last Admin: 10/12/22 23:30 Dose: 100 mls/hr Vancomycin HCl 1,250 mg/ (Sodium Chloride) 500 mls @ 333.3 mls/hr IV Q12H [facility] Last Infusion: 10/13/22 01:25 Dose: Infused Ceftriaxone Sodium 2 gm/ (Dextrose) 50 mls @ 100 mls/hr IV Q24H [facility] Last Admin: 10/13/22 08:38 Dose: 100 mls/hr Ketorolac Tromethamine (Ketorolac 30 Mg/Ml Vial) 30 mg IV Q6 [facility] Stop: 10/15/22 06:01 Lisinopril (Lisinopril 20 Mg Tablet) 20 mg PO DAILY [facility] Last Admin: 10/12/22 08:18 Dose: 20 mg Lorazepam (Lorazepam 2 Mg/Ml Vial) 0 mg IV Q1-4HP PRN; Protocol PRN Reason: ANXIETY/SEDATION Last Admin: 10/13/22 04:41 Dose: 2 mg Magnesium Hydroxide (Magnesium Hydroxide 30 Ml Oral.Susp) 30 ml PO BIDP PRN PRN Reason: Constipation Omeprazole (Omeprazole 20 Mg Capsule) 20 mg PO QAMAC [facility] Last Admin: 10/13/22 07:39 Dose: Not Given Ondansetron HCl (Ondansetron 4 Mg/2 Ml Vial) 4 mg IV Q4HP PRN; Protocol PRN Reason: Nausea And Vomiting Oxycodone HCl (Oxycodone Hcl 5 Mg Tablet) 10 mg PO Q6HP PRN; Protocol PRN Reason: Pain Polyethylene Glycol (Polyethylene Glycol 3350 17 Gm Packet) 17 gm PO DAILYP PRN PRN Reason: Constipation Senna (Sennosides 1 Tablet) 2 tab PO HS [facility] Last Admin: 10/12/22 21:09 Dose: 2 tab Sodium Biphosphate/Sodium Phosphate (Fleets Adult Enema) 1 dose AR Q3-4DAYS PRN PRN Reason: Constipation Sodium Chloride (0.9 % Sodium Chloride 10 Ml Syringe) 10 ml IV Q8 [facility] Last Admin: 10/13/22 04:47 Dose: Not Given Sodium Chloride (0.9 % Sodium Chloride 10 Ml Syringe) 10 ml IV Q8 [facility] Last Admin: 10/13/22 04:47 Dose: Not Given Sodium Chloride (0.9 % Sodium Chloride 10 Ml Syringe) 10 ml IV Q12 [facility] Last Admin: 10/12/22 21:02 Dose: Not Given Sodium Chloride (0.9 % Sodium Chloride 10 Ml Syringe) 10 ml IV UD PRN PRN Reason: FLUSH Throat Lozenges (Benzocaine/Menthol 1 Lozenge) 1 lozenge PO PRN PRN PRN Reason: Sore Throat Vancomycin HCl (Vancomycin Per Pharmacy) 1 order IV UD [facility]; Protocol A/P Assessment and plan (1) Cardiac arrest: Status: Acute (2) Alcohol withdrawal: Status: Acute (3) Post-operative pain: Status: Acute Narrative A/P Narrative: #Cardiac arrest -CTA chest ruled out PE. TTE did not reveal any evidence of wall motion abnormalities and he has a preserved EF of 65%. -Continue empiric treatment for aspiration pneumonia with ceftriaxone and Zithromax -It is unclear if there is a cardiopulmonary process. The patient did have CTA chest which was negative for PE, or aortic disease. Initial cardiac enzymes were unrevealing. TTE is pending. The patient did drink heavily prior to surgery and this was likely component of withdrawal as the achieve ROSC quite quickly. -Monitor and replete electrolytes aggressively, monitor on telemetry #EtOH abuse -Patient also endorsed meth use which contributed to his post-op cardiac arrest -The patient's AST and ALT pattern is consistent with alcohol abuse. We will continue to keep the patient on CIWA protocol #R knee infection -ID consulted and awaiting final cultures -PICC line order was placed and he is continuing vancomycin -Postoperative care per orthopedic surgery. Time Spent With Patient Time: Total time spent is greater than 50% in coordination of care (as documented) at patient's floor/unit and/or counseling patient: Subsequent: Total time with patient: 25 - 34 minutes QUALITY VTE Deep Vein Thrombosis/Pulmonary Embolism Present on Admission: No
[2022-10-13] MEDS ORDERED: IPRATROPIUM/ALBUTEROL 3 ML AMPUL.NEB NEB SCH (09:00)
[2022-10-13] MEDS: ASPIRIN 81 MG TAB.CHEW CHEWED SCH ×2 (09:11→20:10)
[2022-10-13] MEDS: DOCUSATE SODIUM 100 MG CAPSULE PO SCH ×2 (09:11→20:11)
[2022-10-13] MEDS: DULoxetine 30 MG CAPSULE PO SCH (09:12)
[2022-10-13] MEDS: LISINOPRIL 20 MG TABLET PO SCH ×2 (09:12→16:55)
[2022-10-13] MEDS: HYDROCHLOROTHIAZIDE 12.5 MG CAPSULE PO SCH ×3 (09:12→18:45)
[2022-10-13] MEDS: VANCOMYCIN 1,250 MG in 0.9 % SODIUM CHLORIDE 500 ML IV SCH ×2 (09:13→23:08)
--- NOTE | 2022-10-13 09:28 | Orthopedic Progress Note ---
SUBJECTIVE Subjective Patient information: Note initiated : 10/13/22 at 9:22 am Service Date, if different from initiated Date: [] Patient: Leonides Jenkins 52 y/o M admitted on 10/10/22 for increased knee pain. Chief Complaint: [moved to med/surg floor. no acute issues.] Principal diagnosis: EtOH withdrawal Constitutional Vitals: Vital Signs Temp Pulse Resp BP Pulse Ox O2 Del Method O2 Flow Rate 98.2 F 69 26 H 165/79 93 Oxymask 2 10/13/22 08:46 10/13/22 06:46 10/13/22 08:46 10/13/22 06:46 10/13/22 07:09 10/13/22 07:09 10/13/22 07:09 Period Temp Pulse Resp BP Sys/Ward Pulse Ox O2 Del Method O2 Flow Rate Last 24 Hr 97.3 F-99.5 F 69-90 18-28 162-186/79-108 83-98 Oxymask-Oxymask 2-2 Intake and Output 10/12/22 10/13/22 10/13/22 19:59 03:59 11:59 Intake Total 730 500 Output Total 1775 801 1 Balance -1045 -301 -1 Weight 248 lb 3.2 oz Intake & Output: Intake & Output 10/12/22 10/13/22 10/13/22 19:59 03:59 11:59 Intake Total 730 500 Output Total 1775 801 1 Balance -1045 -301 -1 Weight 248 lb 3.2 oz Intake: IV 250 500 Vancomycin 1,000 mg In Sodium 250 Chloride 0.9% 250 ml @ 250 mls/ hr IV ONCE ONE Rx#:[id number] Vancomycin 1,250 mg In Sodium 500 Chloride 0.9% 500 ml @ 333.3 mls/hr IV Q12H [facility] Rx#: [id number] Oral 480 Output: Void Amount 1775 800 # of times incontinent of urine 1 1 Other: Urine Appearance Clear Clear Urine Color Dark Yellow Dark Yellow Yellow Urine Odor Strong Strong # Voids 1 1 Additional findings Additional findings: asleep, did not wake up as had ativan -right knee: dressing clean/dry and intact. foot warm well perfused. OBJ DATA Labs 10/11/22 01:47 10/11/22 01:47 Labs: Abnormal Lab Results 10/12/22 10/11/22 10/11/22 05:10 01:47 01:47 WBC RBC Hgb Hct POC Hct RDW Immature Gran % (Auto) Neut % (Auto) Lymph % (Auto) Lymph # (Auto) Immature Gran # Absolute Neutrophils ESR Sodium 132 L POC Creatinine Glucose 185 H POC Glucose AST 57 H Alkaline Phosphatase 128 H Troponin T 0.04 H* C-Reactive Protein 23.00 H Globulin 3.9 H Albumin/Globulin Ratio 0.9 L Synovial Neutrophils 10/11/22 10/10/22 10/10/22 01:47 21:12 13:36 WBC 14.0 H RBC 3.56 L Hgb 10.7 L Hct 33.1 L POC Hct 38.0 L RDW 16.2 H Immature Gran % (Auto) 0.6 H Neut % (Auto) 92.9 H Lymph % (Auto) 3.4 L Lymph # (Auto) 0.48 L Immature Gran # 0.09 H Absolute Neutrophils 12.98 H ESR Sodium POC Creatinine 0.5 L Glucose POC Glucose 147 H AST Alkaline Phosphatase Troponin T C-Reactive Protein Globulin Albumin/Globulin Ratio Synovial Neutrophils 93 H 10/10/22 10/10/22 13:31 13:31 WBC 12.0 H RBC 3.95 L Hgb 11.6 L Hct 36.5 L POC Hct RDW 16.1 H Immature Gran % (Auto) Neut % (Auto) 87.1 H Lymph % (Auto) 5.8 L Lymph # (Auto) 0.70 L Immature Gran # Absolute Neutrophils 10.45 H ESR 73 H Sodium POC Creatinine Glucose POC Glucose AST Alkaline Phosphatase Troponin T C-Reactive Protein 29.70 H Globulin Albumin/Globulin Ratio Synovial Neutrophils Meds: Medications Acetaminophen (Acetaminophen 500 Mg Tablet) 1,000 mg PO Q8H [facility]; Protocol Last Admin: 10/13/22 05:22 Dose: Not Given Acetaminophen (Acetaminophen 500 Mg Tablet) 1,000 mg PO TID JAYJAY; Protocol Last Admin: 10/13/22 09:12 Dose: Not Given Albuterol Sulfate (Albuterol Sulfate 60 Puff Inhaler) 2 puff IH Q4HP PRN PRN Reason: for dyspnea Albuterol/Ipratropium (Ipratropium/Albuterol 3 Ml Ampul.Neb) 3 ml NEB Q4HP PRN PRN Reason: Shortness Of Breath/ Pre-op Last Admin: 10/13/22 04:44 Dose: 3 ml Albuterol/Ipratropium (Ipratropium/Albuterol 3 Ml Ampul.Neb) 3 ml NEB Q6HP [facility] Aspirin (Aspirin 81 Mg Tab.Chew) 81 mg CHEWED BID [facility] Last Admin: 10/13/22 09:11 Dose: Not Given Azithromycin (Azithromycin 250 Mg Tablet) 250 mg PO DAILY [facility]; Protocol Stop: 10/15/22 09:01 Last Admin: 10/12/22 08:18 Dose: 250 mg Bisacodyl (Bisacodyl 10 Mg Supp.Rect) 10 mg [place] Q2-3DAYS PRN PRN Reason: Constipation Docusate Sodium (Docusate Sodium 100 Mg Capsule) 100 mg PO BID [facility] Last Admin: 10/13/22 09:11 Dose: Not Given Duloxetine HCl (Duloxetine 30 Mg Capsule) 30 mg PO QDAY [facility] Last Admin: 10/13/22 09:12 Dose: Not Given Heparin Sodium (Porcine) (Heparin Flush 10 Units/Ml 5 Ml Syringe) 2 ml IV Q12 [facility] Last Admin: 10/13/22 09:12 Dose: Not Given Hydrochlorothiazide (Hydrochlorothiazide 12.5 Mg Capsule) 12.5 mg PO DAILY [facility] Last Admin: 10/13/22 09:12 Dose: Not Given Hydroxyzine HCl (Hydroxyzine 25 Mg Tablet) 50 mg PO HS [facility] Last Admin: 10/12/22 21:09 Dose: 50 mg Vancomycin HCl 1,250 mg/ (Sodium Chloride) 500 mls @ 333.3 mls/hr IV Q12H [facility] Last Admin: 10/13/22 09:13 Dose: 333.3 mls/hr Ceftriaxone Sodium 2 gm/ (Dextrose) 50 mls @ 100 mls/hr IV Q24H [facility] Last Admin: 10/13/22 08:38 Dose: 100 mls/hr Ketorolac Tromethamine (Ketorolac 30 Mg/Ml Vial) 30 mg IV Q6 [facility] Stop: 10/15/22 06:01 Lisinopril (Lisinopril 20 Mg Tablet) 20 mg PO DAILY [facility] Last Admin: 10/13/22 09:12 Dose: Not Given Lorazepam (Lorazepam 2 Mg/Ml Vial) 0 mg IV Q1-4HP PRN; Protocol PRN Reason: ANXIETY/SEDATION Last Admin: 10/13/22 04:41 Dose: 2 mg Magnesium Hydroxide (Magnesium Hydroxide 30 Ml Oral.Susp) 30 ml PO BIDP PRN PRN Reason: Constipation Omeprazole (Omeprazole 20 Mg Capsule) 20 mg PO QAMAC [facility] Last Admin: 10/13/22 07:39 Dose: Not Given Ondansetron HCl (Ondansetron 4 Mg/2 Ml Vial) 4 mg IV Q4HP PRN; Protocol PRN Reason: Nausea And Vomiting Oxycodone HCl (Oxycodone Hcl 5 Mg Tablet) 10 mg PO Q6HP PRN; Protocol PRN Reason: Pain Polyethylene Glycol (Polyethylene Glycol 3350 17 Gm Packet) 17 gm PO DAILYP PRN PRN Reason: Constipation Senna (Sennosides 1 Tablet) 2 tab PO HS [facility] Last Admin: 10/12/22 21:09 Dose: 2 tab Sodium Biphosphate/Sodium Phosphate (Fleets Adult Enema) 1 dose [place] Q3-4DAYS PRN PRN Reason: Constipation Sodium Chloride (0.9 % Sodium Chloride 10 Ml Syringe) 10 ml IV Q8 [facility] Last Admin: 10/13/22 04:47 Dose: Not Given Sodium Chloride (0.9 % Sodium Chloride 10 Ml Syringe) 10 ml IV Q8 [facility] Last Admin: 10/13/22 04:47 Dose: Not Given Sodium Chloride (0.9 % Sodium Chloride 10 Ml Syringe) 10 ml IV Q12 [facility] Last Admin: 10/13/22 09:12 Dose: Not Given Sodium Chloride (0.9 % Sodium Chloride 10 Ml Syringe) 10 ml IV UD PRN PRN Reason: FLUSH Throat Lozenges (Benzocaine/Menthol 1 Lozenge) 1 lozenge PO PRN PRN PRN Reason: Sore Throat Vancomycin HCl (Vancomycin Per Pharmacy) 1 order IV UD [facility]; Protocol A/P Assessment and plan (1) Infection of prosthetic right knee joint: Status: Acute (2) Postoperative infection of knee: Assessment and plan: POD3 s/p I&D total knee arthroplasty infection, poly exchange, antibiotic bead placement -- 50% weight bearing, hinged knee brace with ambulation -- blood culture negative to date, synovial fluid 95K nucleated cells, gram stain with gram positive in clusters, cultures staph aureus with sensitivity pending --------PICC line placed, ID consult completed- recommend continue vancomycin, rocephin. Hold rifampin for now given elevated liver enzymes (likely from alcohol) -- CIWA - alcohol withdrawl but has been asleep most of the time since surgery. Discussed with Hospitalist, will plan to d/c CIWA -- IV drug use will make disposition bit more complicated as he will have to be placed in rehab for 6 weeks. Status: Acute Time Spent With Patient Time: Total time spent is greater than 50% in coordination of care (as documented) at patient's floor/unit and/or counseling patient:
[2022-10-13] MEDS: KETOROLAC 30 MG/ML VIAL IV SCH ×5 (12:31→23:33)
[2022-10-13] MEDS: AZITHROMYCIN 250 MG TABLET PO SCH (12:31)
[2022-10-13] MEDS: LISINOPRIL/HCTZ 20/12.5MG TABLET PO SCH ×2 (16:50→16:53)
[2022-10-13] MEDS: hydrOXYzine 25 MG TABLET PO SCH (20:11)
[2022-10-13] MEDS: SENNOSIDES 1 TABLET PO SCH (20:11)
[2022-10-13 20:12] LABS: Phosphorous 4.1 mg/dL (2.5-4.5)
[2022-10-13 20:18] LABS: Blood Urea Nitrogen 25 mg/dL (6-20); Carbon Dioxide 28 mmol/L (22-30); Chloride 93 mmol/L (96-108); Glomerular Filtration Rate 103; Glucose 119 mg/dL (70-105)
[2022-10-13] MEDS: oxyCODONE IR 5 MG TABLET PO PRN (20:46)
[2022-10-13] MEDS ORDERED: MAGNESIUM SULFATE 2 GM/50 ML BAG IV ONE (21:06)
[2022-10-14] MEDS: LORazepam 2 MG/ML VIAL IV PRN ×2 (02:35→04:54)
[2022-10-14] MEDS: 0.9 % SODIUM CHLORIDE 10 ML SYRINGE IV SCH ×5 (05:43→21:28)
[2022-10-14] MEDS: KETOROLAC 30 MG/ML VIAL IV SCH ×3 (05:43→18:23)
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
--- NOTE | 2022-10-14 08:13 | EKG ---
[facility] Test Date: 2022-10-11 Pat Name: Leonides Jenkins Department: ICU Room: 120B Gender: Male Coat Operator: : 1970 Requested By: Mamta Mejia Order Number: [id number] Reading MD: Tomas Campa Measurements Intervals [place] Rate: 76 P: 57 ND: 198 QRS: 25 QRSD: 104 T: 48 QT: 398 QTc: 448 Interpretive Statements Sinus rhythm Electronically Signed On 10-14-2022 8:12:57 PDT by Tomas Campa /store/M0/[id number]/[id number]
--- NOTE | 2022-10-14 09:05 | Internal Med Progress Note ---
SUBJECTIVE Subjective Patient information: Note initiated : 10/14/22 at 8:58 am Service Date, if different from initiated Date: [] Patient: Leonides Jenkins 52 y/o M admitted on 10/10/22 for increased knee pain. Chief Complaint: [] Principal diagnosis: Septic Rt knee s/p irrigation & debridement Interval history: Chief Complaint: [Cardiac arrest] 52-year-old obese male with a past medical history significant for hypertension, anxiety/depression, and alcohol abuse who presented to the hospital for elective surgery. The patient underwent right total knee arthroplasty, irrigation, and debridement with polyliner exchange and antibiotic bead placement. Postoperatively, after anesthesia induction, he briefly went into PEA arrest requiring cardiopulmonary resuscitation with ROSC. He was extubated overnight and this morning he was alert, oriented x3. Family were present at the bedside. The patient denies chest pain, shortness of breath or palpitations. There were concerns for mild alcohol withdrawal as he was placed on CIWA protocol and did receive Ativan. The hospitalist service was asked to consult to help medically manage the patient. 10/13: The patient was moved out the ICU to [facility]. He remains quite somnolent as he needs IV Ativan for CIWA protocol. He is receiving beer as well. 10/14: Had a lengthy discussion with RN, and with case management coordinator regarding the patient's behavior. He did sign the AMA form however was quite confused. He was verbally abusive, shouting and yelling yesterday. The patient receives oxycodone, alcohol, and benzodiazepine subsequently by staffing and then becomes quite sedated and somnolent. This morning he was difficult to wake up. I recommended stopping or decreasing IV Ativan. Constitutional Vitals: Vital Signs Temp Pulse Resp BP Pulse Ox O2 Del Method O2 Flow Rate 98.2 F 80 22 187/77 96 Oxymask 3 10/14/22 08:00 10/14/22 08:00 10/14/22 08:00 10/14/22 08:00 10/14/22 08:00 10/14/22 08:00 10/14/22 08:00 Period Temp Pulse Resp BP Sys/Ward Pulse Ox O2 Del Method O2 Flow Rate Last 24 Hr 97.5 F-99.5 F 73-95 22-25 158-195/77-102 91-97 Nasal Cannula- Room Air 1-5 Intake and Output 10/13/22 10/14/22 10/14/22 19:59 03:59 11:59 Intake Total 841 790 Output Total 400 401 1 Balance 441 389 -1 Weight 112.945 kg Intake & Output: Intake & Output 10/13/22 10/14/22 10/14/22 19:59 03:59 11:59 Intake Total 841 790 Output Total 400 401 1 Balance 441 389 -1 Weight 112.945 kg Intake: IV 361 550 Vancomycin 1,250 mg In Sodium 361 500 Chloride 0.9% 500 ml @ 333.3 mls/hr IV Q12H [facility] Rx#: [id number] Oral 480 240 Output: Void Amount 400 400 # of times incontinent of urine 1 1 Other: Meal Dinner Percent of Meal Consumed 75% Urine Appearance Clear Urine Color Dark Yellow Head Head exam: Present atraumatic and normal inspection Eye Eye exam: Present normal appearance ENT ENT exam: Present mucous membranes moist, normal exam and normal external ear exam Neck Neck exam: Present normal inspection Respiratory Respiratory exam: Present normal respiratory exam Cardiovascular Cardiovascular exam: Present normal rate and rhythm GI/Abdominal GI/Abdominal exam: Present normal bowel sounds Back Exam Back exam: Present normal inspection Neurological Exam Neurological exam: Present altered Psychiatric Psychiatric exam: Present agitated and anxious Skin Skin exam: Present intact and warm OBJ DATA Labs 10/11/22 01:47 10/13/22 19:10 Labs: Abnormal Lab Results 10/13/22 10/12/22 10/10/22 19:10 05:10 21:12 Sodium 132 L Chloride 93 L BUN 25 H Glucose 119 H C-Reactive Protein 23.00 H Synovial Neutrophils 93 H Meds: Medications Acetaminophen (Acetaminophen 500 Mg Tablet) 1,000 mg PO TID [facility]; Protocol Last Admin: 10/13/22 20:11 Dose: Not Given Albuterol Sulfate (Albuterol Sulfate 60 Puff Inhaler) 2 puff IH Q4HP PRN PRN Reason: for dyspnea Albuterol/Ipratropium (Ipratropium/Albuterol 3 Ml Ampul.Neb) 3 ml NEB Q4HP PRN PRN Reason: Shortness Of Breath/ Pre-op Last Admin: 10/13/22 04:44 Dose: 3 ml Albuterol/Ipratropium (Ipratropium/Albuterol 3 Ml Ampul.Neb) 3 ml NEB Q6HP [facility] Aspirin (Aspirin 81 Mg Tab.Chew) 81 mg CHEWED BID [facility] Last Admin: 10/13/22 20:10 Dose: 81 mg Azithromycin (Azithromycin 250 Mg Tablet) 250 mg PO DAILY [facility]; Protocol Stop: 10/15/22 09:01 Last Admin: 10/13/22 12:31 Dose: Not Given Bisacodyl (Bisacodyl 10 Mg Supp.Rect) 10 mg SC Q2-3DAYS PRN PRN Reason: Constipation Docusate Sodium (Docusate Sodium 100 Mg Capsule) 100 mg PO BID [facility] Last Admin: 10/13/22 20:11 Dose: 100 mg Duloxetine HCl (Duloxetine 30 Mg Capsule) 30 mg PO QDAY [facility] Last Admin: 10/13/22 09:12 Dose: Not Given Heparin Sodium (Porcine) (Heparin Flush 10 Units/Ml 5 Ml Syringe) 2 ml IV Q12 [facility] Last Admin: 10/13/22 20:11 Dose: Not Given Hydrochlorothiazide (Hydrochlorothiazide 12.5 Mg Capsule) 12.5 mg PO DAILY [facility] Last Admin: 10/13/22 16:55 Dose: 12.5 mg Hydrochlorothiazide (Hydrochlorothiazide 12.5 Mg Capsule) 12.5 mg PO DAILY [facility] Last Admin: 10/13/22 18:45 Dose: Not Given Hydroxyzine HCl (Hydroxyzine 25 Mg Tablet) 50 mg PO HS [facility] Last Admin: 10/13/22 20:11 Dose: 50 mg Vancomycin HCl 1,250 mg/ (Sodium Chloride) 500 mls @ 333.3 mls/hr IV Q12H [facility] Last Infusion: 10/14/22 00:45 Dose: Infused Ceftriaxone Sodium 2 gm/ (Dextrose) 50 mls @ 100 mls/hr IV Q24H [facility] Last Infusion: 10/13/22 09:08 Dose: Infused Ketorolac Tromethamine (Ketorolac 30 Mg/Ml Vial) 30 mg IV Q6 [facility] Stop: 10/15/22 06:01 Last Admin: 10/14/22 05:43 Dose: 30 mg Lisinopril (Lisinopril 20 Mg Tablet) 20 mg PO DAILY [facility] Last Admin: 10/13/22 16:55 Dose: 20 mg Lisinopril (Lisinopril 20 Mg Tablet) 20 mg PO DAILY [facility] Magnesium Hydroxide (Magnesium Hydroxide 30 Ml Oral.Susp) 30 ml PO BIDP PRN PRN Reason: Constipation Omeprazole (Omeprazole 20 Mg Capsule) 20 mg PO QAMAC [facility] Last Admin: 10/13/22 07:39 Dose: Not Given Ondansetron HCl (Ondansetron 4 Mg/2 Ml Vial) 4 mg IV Q4HP PRN; Protocol PRN Reason: Nausea And Vomiting Last Admin: 10/13/22 21:12 Dose: 4 mg Oxycodone HCl (Oxycodone Hcl 5 Mg Tablet) 10 mg PO Q6HP PRN; Protocol PRN Reason: Pain Last Admin: 10/13/22 20:46 Dose: 10 mg Polyethylene Glycol (Polyethylene Glycol 3350 17 Gm Packet) 17 gm PO DAILYP PRN PRN Reason: Constipation Senna (Sennosides 1 Tablet) 2 tab PO HS [facility] Last Admin: 10/13/22 20:11 Dose: 2 tab Sodium Biphosphate/Sodium Phosphate (Fleets Adult Enema) 1 dose SC Q3-4DAYS PRN PRN Reason: Constipation Sodium Chloride (0.9 % Sodium Chloride 10 Ml Syringe) 10 ml IV Q8 [facility] Last Admin: 10/14/22 05:43 Dose: 10 ml Sodium Chloride (0.9 % Sodium Chloride 10 Ml Syringe) 10 ml IV Q12 [facility] Last Admin: 10/13/22 20:11 Dose: 10 ml Sodium Chloride (0.9 % Sodium Chloride 10 Ml Syringe) 10 ml IV UD PRN PRN Reason: FLUSH Throat Lozenges (Benzocaine/Menthol 1 Lozenge) 1 lozenge PO PRN PRN PRN Reason: Sore Throat Vancomycin HCl (Vancomycin Per Pharmacy) 1 order IV UD [facility]; Protocol A/P Assessment and plan (1) Cardiac arrest: Status: Acute (2) Alcohol withdrawal: Status: Acute (3) Post-operative pain: Status: Acute Narrative A/P Narrative: #Cardiac arrest -Resolved (2/2 polysubstance abuse and catecholamine response post-induction) -Continue empiric treatment for aspiration pneumonia with ceftriaxone and Zithromax -It is unclear if there is a cardiopulmonary process. The patient did have CTA chest which was negative for PE, or aortic disease. Initial cardiac enzymes were unrevealing. TTE did not reveal any evidence of wall motion abnormalities and he has a preserved EF of 65%. Electrolytes monitored and repleted. The patient did drink heavily prior to surgery and this was likely component of withdrawal as the achieve ROSC quite quickly. It was also discovered he has been using meth prior to surgery -monitor on telemetry #EtOH abuse -Patient also endorsed meth use which contributed to his post-op cardiac arrest -The patient's AST and ALT pattern is consistent with alcohol abuse. -D/C CIWA protocol today #R knee infection -ID consulted, cx revealed MRSA -Due to the patient's polysubstance abuse, he may not be appropriote for PICC line unless he goes to SNF. He may need to d/c and come for IV abx at short stay -Postoperative care per orthopedic surgery. Time Spent With Patient Time: Total time spent is greater than 50% in coordination of care (as documented) at patient's floor/unit and/or counseling patient: Subsequent: Total time with patient: 25 - 34 minutes QUALITY VTE Deep Vein Thrombosis/Pulmonary Embolism Present on Admission: No
[2022-10-14] MEDS: cefTRIAXone 2 GM in DEXTROSE 5% IN WATER 50 ML IV SCH (09:31)
[2022-10-14] MEDS: HYDROCHLOROTHIAZIDE 12.5 MG CAPSULE PO SCH ×2 (09:32→09:35)
[2022-10-14] MEDS: oxyCODONE IR 5 MG TABLET PO PRN ×3 (09:32→21:25)
[2022-10-14] MEDS: LISINOPRIL 20 MG TABLET PO SCH (09:32)
[2022-10-14] MEDS: AZITHROMYCIN 250 MG TABLET PO SCH (09:33)
[2022-10-14] MEDS: ASPIRIN 81 MG TAB.CHEW CHEWED SCH ×2 (09:33→21:24)
[2022-10-14] MEDS: DOCUSATE SODIUM 100 MG CAPSULE PO SCH ×2 (09:33→21:24)
[2022-10-14] MEDS: ACETAMINOPHEN 500 MG TABLET PO SCH ×3 (09:33→21:24)
[2022-10-14] MEDS: OMEPRAZOLE 20 MG CAPSULE PO SCH (09:33)
[2022-10-14] MEDS: DULoxetine 30 MG CAPSULE PO SCH (09:34)
[2022-10-14] MEDS: VANCOMYCIN 1,250 MG in 0.9 % SODIUM CHLORIDE 500 ML IV SCH (10:09)
--- NOTE | 2022-10-14 10:15 | Orthopedic Progress Note ---
SUBJECTIVE Subjective Patient information: Note initiated : 10/14/22 at 10:02 am Service Date, if different from initiated Date: [] Patient: Leonides Jenkins 52 y/o M admitted on 10/10/22 for increased knee pain. Chief Complaint: [POD 4 right TKA washout ] Principal diagnosis: Septic Rt knee s/p irrigation & debridement Pertinent ROS: 10 pints reviewed and are negative except where mentioned. Constitutional Vitals: Vital Signs Temp Pulse Resp BP Pulse Ox O2 Del Method O2 Flow Rate 98.2 F 80 22 187/77 96 Oxymask 3 10/14/22 08:00 10/14/22 08:00 10/14/22 08:00 10/14/22 08:00 10/14/22 08:00 10/14/22 08:00 10/14/22 08:00 Period Temp Pulse Resp BP Sys/Ward Pulse Ox O2 Del Method O2 Flow Rate Last 24 Hr 97.5 F-99.5 F 73-95 22-25 158-195/77-102 91-97 Nasal Cannula- Room Air 1-5 Intake and Output 10/13/22 10/14/22 10/14/22 19:59 03:59 11:59 Intake Total 841 790 Output Total 400 401 1 Balance 441 389 -1 Weight 249 lb Intake & Output: Intake & Output 10/13/22 10/14/22 10/14/22 19:59 03:59 11:59 Intake Total 841 790 Output Total 400 401 1 Balance 441 389 -1 Weight 249 lb Intake: IV 361 550 Vancomycin 1,250 mg In Sodium 361 500 Chloride 0.9% 500 ml @ 333.3 mls/hr IV Q12H [facility] Rx#: [id number] Oral 480 240 Output: Void Amount 400 400 # of times incontinent of urine 1 1 Other: Meal Dinner Percent of Meal Consumed 75% Urine Appearance Clear Urine Color Dark Yellow OBJ DATA Labs 10/11/22 01:47 10/13/22 19:10 Labs: Abnormal Lab Results 10/14/22 10/13/22 10/12/22 08:43 19:10 05:10 Sodium 132 L Chloride 93 L BUN 25 H Glucose 119 H C-Reactive Protein 12.60 H 23.00 H Meds: Medications Acetaminophen (Acetaminophen 500 Mg Tablet) 1,000 mg PO TID [facility]; Protocol Last Admin: 10/14/22 09:33 Dose: 1,000 mg Albuterol Sulfate (Albuterol Sulfate 60 Puff Inhaler) 2 puff IH Q4HP PRN PRN Reason: for dyspnea Albuterol/Ipratropium (Ipratropium/Albuterol 3 Ml Ampul.Neb) 3 ml NEB Q4HP PRN PRN Reason: Shortness Of Breath/ Pre-op Last Admin: 10/13/22 04:44 Dose: 3 ml Albuterol/Ipratropium (Ipratropium/Albuterol 3 Ml Ampul.Neb) 3 ml NEB Q6HP [facility] Aspirin (Aspirin 81 Mg Tab.Chew) 81 mg CHEWED BID [facility] Last Admin: 10/14/22 09:33 Dose: 81 mg Azithromycin (Azithromycin 250 Mg Tablet) 250 mg PO DAILY [facility]; Protocol Stop: 10/15/22 09:01 Last Admin: 10/14/22 09:33 Dose: 250 mg Bisacodyl (Bisacodyl 10 Mg Supp.Rect) 10 mg CO Q2-3DAYS PRN PRN Reason: Constipation Docusate Sodium (Docusate Sodium 100 Mg Capsule) 100 mg PO BID [facility] Last Admin: 10/14/22 09:33 Dose: 100 mg Duloxetine HCl (Duloxetine 30 Mg Capsule) 30 mg PO QDAY [facility] Last Admin: 10/14/22 09:34 Dose: 30 mg Heparin Sodium (Porcine) (Heparin Flush 10 Units/Ml 5 Ml Syringe) 2 ml IV Q12 [facility] Last Admin: 10/14/22 09:34 Dose: Not Given Hydrochlorothiazide (Hydrochlorothiazide 12.5 Mg Capsule) 12.5 mg PO DAILY [facility] Last Admin: 10/14/22 09:32 Dose: 12.5 mg Hydrochlorothiazide (Hydrochlorothiazide 12.5 Mg Capsule) 12.5 mg PO DAILY [facility] Last Admin: 10/14/22 09:35 Dose: Not Given Hydroxyzine HCl (Hydroxyzine 25 Mg Tablet) 50 mg PO HS [facility] Last Admin: 10/13/22 20:11 Dose: 50 mg Vancomycin HCl 1,250 mg/ (Sodium Chloride) 500 mls @ 333.3 mls/hr IV Q12H [facility] Last Infusion: 10/14/22 00:45 Dose: Infused Ceftriaxone Sodium 2 gm/ (Dextrose) 50 mls @ 100 mls/hr IV Q24H [facility] Last Admin: 10/14/22 09:31 Dose: 100 mls/hr Ketorolac Tromethamine (Ketorolac 30 Mg/Ml Vial) 30 mg IV Q6 [facility] Stop: 10/15/22 06:01 Last Admin: 10/14/22 05:43 Dose: 30 mg Lisinopril (Lisinopril 20 Mg Tablet) 20 mg PO DAILY [facility] Last Admin: 10/14/22 09:32 Dose: 20 mg Lisinopril (Lisinopril 20 Mg Tablet) 20 mg PO DAILY [facility] Magnesium Hydroxide (Magnesium Hydroxide 30 Ml Oral.Susp) 30 ml PO BIDP PRN PRN Reason: Constipation Omeprazole (Omeprazole 20 Mg Capsule) 20 mg PO QAMAC [facility] Last Admin: 10/14/22 09:33 Dose: 20 mg Ondansetron HCl (Ondansetron 4 Mg/2 Ml Vial) 4 mg IV Q4HP PRN; Protocol PRN Reason: Nausea And Vomiting Last Admin: 10/13/22 21:12 Dose: 4 mg Oxycodone HCl (Oxycodone Hcl 5 Mg Tablet) 10 mg PO Q6HP PRN; Protocol PRN Reason: Pain Last Admin: 10/14/22 09:32 Dose: 10 mg Polyethylene Glycol (Polyethylene Glycol 3350 17 Gm Packet) 17 gm PO DAILYP PRN PRN Reason: Constipation Senna (Sennosides 1 Tablet) 2 tab PO HS [facility] Last Admin: 10/13/22 20:11 Dose: 2 tab Sodium Biphosphate/Sodium Phosphate (Fleets Adult Enema) 1 dose CO Q3-4DAYS PRN PRN Reason: Constipation Sodium Chloride (0.9 % Sodium Chloride 10 Ml Syringe) 10 ml IV Q8 [facility] Last Admin: 10/14/22 05:43 Dose: 10 ml Sodium Chloride (0.9 % Sodium Chloride 10 Ml Syringe) 10 ml IV Q12 [facility] Last Admin: 10/14/22 09:35 Dose: 10 ml Sodium Chloride (0.9 % Sodium Chloride 10 Ml Syringe) 10 ml IV UD PRN PRN Reason: FLUSH Throat Lozenges (Benzocaine/Menthol 1 Lozenge) 1 lozenge PO PRN PRN PRN Reason: Sore Throat Vancomycin HCl (Vancomycin Per Pharmacy) 1 order IV UD [facility]; Protocol A/P Narrative A/P Narrative: Patient seen and examined this am. Awake, alert, uncooperative with staff. perseverates about his mother, verbally abusive to staff and would like to leave AMA. currently receiving vodka, beer, and attempting to wean from ativan which reportedly makes him very uncooperative, physically and verbally abusive. Dressing at [facility] disheveled with upper hardik exposed, this is reinforced and wrapped at bedside. knee ranger reapplied. Both lower extremities are warm, well perfused and neuro intact. He has been 50% WB and staff endorses he will stand with assist and walker. Pending cultures of MRSA synovial aspirate will continue with vancomycin IV. If patient elects to dispo to SNF we will plan for PICC line. I do not recommend PICC line if he elects to dispo AMA due to HX of IV drug abuse. Possible addition of Rifampin if liver enzymes improve secondary to chronic alcohol abuse. PT/OT pain control 50% WB with walker Time Spent With Patient Time: Total time spent is greater than 50% in coordination of care (as documented) at patient's floor/unit and/or counseling patient:
--- NOTE | 2022-10-14 12:47 | Internal Med Progress Note ---
SUBJECTIVE Subjective Patient information: Note initiated : 10/14/22 at 12:38 pm Service Date, if different from initiated Date: [] Patient: Leonides Jenkins 52 y/o M admitted on 10/10/22 for increased knee pain. Chief Complaint: [] Principal diagnosis: Septic Rt knee s/p irrigation & debridement Interval history: Chief Complaint: [Cardiac arrest] 52-year-old obese male with a past medical history significant for hypertension, anxiety/depression, and alcohol abuse who presented to the hospital for elective surgery. The patient underwent right total knee arthroplasty, irrigation, and debridement with polyliner exchange and antibiotic bead placement. Postoperatively, after anesthesia induction, he briefly went into PEA arrest requiring cardiopulmonary resuscitation with ROSC. He was extubated overnight and this morning he was alert, oriented x3. Family were present at the bedside. The patient denies chest pain, shortness of breath or palpitations. There were concerns for mild alcohol withdrawal as he was placed on CIWA protocol and did receive Ativan. The hospitalist service was asked to consult to help medically manage the patient. 10/13: The patient was moved out the ICU to [facility]. He remains quite somnolent as he needs IV Ativan for CIWA protocol. He is receiving beer as well. 10/14: Had a lengthy discussion with RN, and with case filler regarding the patient's behavior. He did sign the AMA form however was quite confused. He was verbally abusive, shouting and yelling yesterday. The patient receives oxycodone, alcohol, and benzodiazepine subsequently by staffing and then becomes quite sedated and somnolent. This morning he was difficult to wake up. I recommended stopping or decreasing IV Ativan. 10/15 Review of Systems: denies headache/fever/chills/nausea/vomiting/chest or abdominal pain/cough/dyspnea/diarrhea. Otherwise see above. PHYSICAL EXAM General: Alert, Awake, No acute Distress, obese Eyes/N/T: EOMI, no scleral icterus, Head/Neck: neck supple, full ROM, CV: RRR, No murmurs, Pulm: Clear b/l, no wheezing/rhonchi/rales, no respiratory distress Abd: soft, nontender, +BS x4 Ext: no clubbing/cyanosis/edema, right knee dressings Neuro: Alert, no focal deficits, moves all extremities,, sensations intact b/l upper/lower Psychiatric: Agitated and anxious Skin: warm/dry, normal color Constitutional Vitals: Vital Signs Temp Pulse Resp BP Pulse Ox O2 Del Method O2 Flow Rate 98.2 F 80 22 187/77 96 Oxymask 3 10/14/22 08:00 10/14/22 08:00 10/14/22 08:00 10/14/22 08:00 10/14/22 08:00 10/14/22 08:00 10/14/22 08:00 Period Temp Pulse Resp BP Sys/Ward Pulse Ox O2 Del Method O2 Flow Rate Last 24 Hr 97.5 F-99.5 F 73-95 22-24 158-189/77-100 91-97 Oxymask-Room Air 1-5 Intake and Output 10/14/22 10/14/22 10/14/22 03:59 11:59 19:59 Intake Total 790 Output Total 401 1 Balance 389 -1 Intake & Output: Intake & Output 10/14/22 10/14/22 10/14/22 03:59 11:59 19:59 Intake Total 790 Output Total 401 1 Balance 389 -1 Intake: IV 550 Vancomycin 1,250 mg In Sodium 500 Chloride 0.9% 500 ml @ 333.3 mls/hr IV Q12H [facility] Rx#: [id number] Oral 240 Output: Void Amount 400 # of times incontinent of urine 1 1 Other: Urine Appearance Clear Urine Color Dark Yellow OBJ DATA Labs 10/11/22 01:47 10/13/22 19:10 Labs: Abnormal Lab Results 10/14/22 10/13/22 10/12/22 08:43 19:10 05:10 Sodium 132 L Chloride 93 L BUN 25 H Glucose 119 H C-Reactive Protein 12.60 H 23.00 H Meds: Medications Acetaminophen (Acetaminophen 500 Mg Tablet) 1,000 mg PO TID [facility]; Protocol Last Admin: 10/14/22 09:33 Dose: 1,000 mg Albuterol Sulfate (Albuterol Sulfate 60 Puff Inhaler) 2 puff IH Q4HP PRN PRN Reason: for dyspnea Albuterol/Ipratropium (Ipratropium/Albuterol 3 Ml Ampul.Neb) 3 ml NEB Q4HP PRN PRN Reason: Shortness Of Breath/ Pre-op Last Admin: 10/13/22 04:44 Dose: 3 ml Albuterol/Ipratropium (Ipratropium/Albuterol 3 Ml Ampul.Neb) 3 ml NEB Q6HP [facility] Aspirin (Aspirin 81 Mg Tab.Chew) 81 mg CHEWED BID [facility] Last Admin: 10/14/22 09:33 Dose: 81 mg Azithromycin (Azithromycin 250 Mg Tablet) 250 mg PO DAILY [facility]; Protocol Stop: 10/15/22 09:01 Last Admin: 10/14/22 09:33 Dose: 250 mg Bisacodyl (Bisacodyl 10 Mg Supp.Rect) 10 mg FL Q2-3DAYS PRN PRN Reason: Constipation Docusate Sodium (Docusate Sodium 100 Mg Capsule) 100 mg PO BID [facility] Last Admin: 10/14/22 09:33 Dose: 100 mg Duloxetine HCl (Duloxetine 30 Mg Capsule) 30 mg PO QDAY [facility] Last Admin: 10/14/22 09:34 Dose: 30 mg Heparin Sodium (Porcine) (Heparin Flush 10 Units/Ml 5 Ml Syringe) 2 ml IV Q12 [facility] Last Admin: 10/14/22 09:34 Dose: Not Given Hydrochlorothiazide (Hydrochlorothiazide 12.5 Mg Capsule) 12.5 mg PO DAILY [facility] Last Admin: 10/14/22 09:32 Dose: 12.5 mg Hydrochlorothiazide (Hydrochlorothiazide 12.5 Mg Capsule) 12.5 mg PO DAILY [facility] Last Admin: 10/14/22 09:35 Dose: Not Given Hydroxyzine HCl (Hydroxyzine 25 Mg Tablet) 50 mg PO HS [facility] Last Admin: 10/13/22 20:11 Dose: 50 mg Vancomycin HCl 1,250 mg/ (Sodium Chloride) 500 mls @ 333.3 mls/hr IV Q12H [facility] Last Admin: 10/14/22 10:09 Dose: 333.3 mls/hr Ceftriaxone Sodium 2 gm/ (Dextrose) 50 mls @ 100 mls/hr IV Q24H [facility] Last Admin: 10/14/22 09:31 Dose: 100 mls/hr Ketorolac Tromethamine (Ketorolac 30 Mg/Ml Vial) 30 mg IV Q6 [facility] Stop: 10/15/22 06:01 Last Admin: 10/14/22 12:23 Dose: 30 mg Lisinopril (Lisinopril 20 Mg Tablet) 20 mg PO DAILY [facility] Last Admin: 10/14/22 09:32 Dose: 20 mg Lisinopril (Lisinopril 20 Mg Tablet) 20 mg PO DAILY [facility] Magnesium Hydroxide (Magnesium Hydroxide 30 Ml Oral.Susp) 30 ml PO BIDP PRN PRN Reason: Constipation Omeprazole (Omeprazole 20 Mg Capsule) 20 mg PO QAMAC [facility] Last Admin: 10/14/22 09:33 Dose: 20 mg Ondansetron HCl (Ondansetron 4 Mg/2 Ml Vial) 4 mg IV Q4HP PRN; Protocol PRN Reason: Nausea And Vomiting Last Admin: 10/13/22 21:12 Dose: 4 mg Oxycodone HCl (Oxycodone Hcl 5 Mg Tablet) 10 mg PO Q6HP PRN; Protocol PRN Reason: Pain Last Admin: 10/14/22 09:32 Dose: 10 mg Polyethylene Glycol (Polyethylene Glycol 3350 17 Gm Packet) 17 gm PO DAILYP PRN PRN Reason: Constipation Senna (Sennosides 1 Tablet) 2 tab PO HS [facility] Last Admin: 10/13/22 20:11 Dose: 2 tab Sodium Biphosphate/Sodium Phosphate (Fleets Adult Enema) 1 dose FL Q3-4DAYS PRN PRN Reason: Constipation Sodium Chloride (0.9 % Sodium Chloride 10 Ml Syringe) 10 ml IV Q8 [facility] Last Admin: 10/14/22 05:43 Dose: 10 ml Sodium Chloride (0.9 % Sodium Chloride 10 Ml Syringe) 10 ml IV Q12 [facility] Last Admin: 10/14/22 09:35 Dose: 10 ml Sodium Chloride (0.9 % Sodium Chloride 10 Ml Syringe) 10 ml IV UD PRN PRN Reason: FLUSH Throat Lozenges (Benzocaine/Menthol 1 Lozenge) 1 lozenge PO PRN PRN PRN Reason: Sore Throat Vancomycin HCl (Vancomycin Per Pharmacy) 1 order IV UD [facility]; Protocol A/P Narrative A/P Narrative: A: #Cardiac arrest -Resolved (2/2 polysubstance abuse and catecholamine response post-induction) -It is unclear if there is a cardiopulmonary process. The patient did have CTA chest which was negative for PE, or aortic disease. Initial cardiac enzymes were unrevealing. TTE did not reveal any evidence of wall motion abnormalities and he has a preserved EF of 65%. Electrolytes monitored and repleted. The p atient did drink heavily prior to surgery and this was likely component of withdrawal as the achieve ROSC quite quickly. It was also discovered he has been using meth prior to surgery #EtOH abuse and W/D: -Patient also endorsed meth use which contributed to his post-op cardiac arrest -The patient's AST and ALT pattern is consistent with alcohol abuse. #Substance Abuse (Meth): #R knee infection: s/p washout (10/10) -ID consulted, cx revealed MRSA -Due to the patient's polysubstance abuse, he may not be appropriate for PICC line unless he goes to SNF. -He may need to d/c home and come for IV abx #HTN: #GERD: #Obesity: bmi 35, lifestyle modifications P: -ID following, cont vanco while inpt, then zyvox PO 600mg bid x4wks and to avoid etoh on abx, f/u in clinic -monitor on telemetry -D/C CIWA protocol today -Postoperative care per orthopedic surgery. Dr. Rivera -cont home ACEI -EtOH and substance use cessation counseling -PT/OT -CM for placement needs -ppx: ASA per ortho / home ppi Time Spent With Patient Time: Total time spent is greater than 50% in coordination of care (as documented) at patient's floor/unit and/or counseling patient: QUALITY VTE Deep Vein Thrombosis/Pulmonary Embolism Present on Admission: No
[2022-10-14] MEDS ORDERED: LORazepam 2 MG/ML VIAL IV PRN (16:22)
--- NOTE | 2022-10-14 16:28 | Discharge Summary ---
Discharge Provider Provider IMPORTANT FOLLOW-UP INFORMATION FOR PCP: Patient information: Note initiated : 10/14/22 at 4:26 pm Service Date, if different from initiated Date: [] Patient: Leonides Jenkins 52 y/o M admitted on 10/10/22 for increased knee pain. Chief Complaint: [] Date of admission: 10/10/22 18:49 Primary care physician: Geetha aGrcia Consults: 10/10/22 Consult to Physician [CONS] Urgent Comment: discussed with provider- agreed to see patient. Consulting Provider: Mamta Mejia Reason For Exam: Physician to Consult 10/10/22 19:26 Consult to Physician [CONS] Routine Comment: Consulting Provider: Darrell Rivera Reason For Exam: Physician to Consult 10/12/22 10:00 Consult to Physician [CONS] Routine Comment: Consulting Provider: Al FLORES Reason For Exam: Physician to Consult COURSE Hospital Course Hospital course: HPI: 52-year-old obese male with a past medical history significant for hypertension, anxiety/depression, and alcohol abuse who presented to the hospital for elective surgery. The patient underwent right total knee arthroplasty, irrigation, and debridement with polyliner exchange and antibiotic bead placement. Postoperatively, after anesthesia induction, he briefly went into PEA arrest requiring cardiopulmonary resuscitation with ROSC. He was extubated overnight and this morning he was alert, oriented x3. Family were present at the bedside. The patient denies chest pain, shortness of breath or palpitations. There were concerns for mild alcohol withdrawal as he was placed on CIWA protocol and did receive Ativan. The hospitalist service was asked to consult to help medically manage the patient. 10/13: The patient was moved out the ICU to [facility]. He remains quite somnolent as he needs IV Ativan for CIWA protocol. He is receiving beer as well. 10/14: Had a lengthy discussion with RN, and with pillowcase turner regarding the patient's behavior. He did sign the AMA form however was quite confused. He was verbally abusive, shouting and yelling yesterday. The patient receives oxycodone, alcohol, and benzodiazepine subsequently by staffing and then becomes quite sedated and somnolent. This morning he was difficult to wake up. I recommended stopping or decreasing IV Ativan. 10/15 A: #Cardiac arrest -Resolved (2/2 polysubstance abuse and catecholamine response post-induction) -It is unclear if there is a cardiopulmonary process. The patient did have CTA chest which was negative for PE, or aortic disease. Initial cardiac enzymes were unrevealing. TTE did not reveal any evidence of wall motion abnormalities and he has a preserved EF of 65%. Electrolytes monitored and repleted. The patient did drink heavily prior to surgery and this was likely component of withdrawal as the achieve ROSC quite quickly. It was also discovered he has been using meth prior to surgery #EtOH abuse and W/D: #Substance Abuse (Meth): #R knee infection: s/p washout (10/10) -cx revealedMRSA #HTN: #GERD: #Obesity: bmi 35, lifestyle modifications P: -ID following, cont vanco while inpt, then zyvox PO 600mg bid x4wks and to avoid etoh on abx, f/u in clinic -Postoperative care per orthopedic surgery. Dr. Rivera Discharge diagnosis: Right knee infection substance abuse with methamphetamine and alcohol abuse Secondary discharge diagnosis: Hypertension GERD obesity Time Spent with Patient Time attestation: Total time spent providing and/or coordinating discharge services: Time spent: Greater than 30 minutes EXAM Constitutional Vitals: Temp Pulse Resp BP Pulse Ox O2 Del Method O2 Flow Rate 98.0 F 80 22 160/80 96 Oxymask 3 10/14/22 12:00 10/14/22 12:00 10/14/22 12:00 10/14/22 12:00 10/14/22 12:00 10/14/22 12:00 10/14/22 12:00 Discharge Data Data Completed and Pending Labs on day of discharge: Labs from last 24 hours 10/14/22 10/14/22 10/13/22 08:43 08:42 19:10 Sodium 132 L Potassium 4.2 Chloride 93 L Carbon Dioxide 28 Anion Gap 11.0 BUN 25 H Creatinine 0.8 GFR Calculation 103 Glucose 119 H Ionized Calcium Helen 1.19 Phosphorus 4.1 Magnesium 1.6 C-Reactive Protein 12.60 H Vancomycin Trough 11.6 Preliminary micro results at discharge 10/10/22 22:35 Gram Stain - Preliminary Knee - Right Anaerobic Culture - Preliminary 10/10/22 22:36 Gram Stain - Preliminary Knee - Right Anaerobic Culture - Preliminary 10/10/22 22:31 Gram Stain - Preliminary Knee - Right Anaerobic Culture - Preliminary 10/10/22 17:14 Blood Culture - Preliminary Blood 10/10/22 17:08 Blood Culture - Preliminary Blood Discharge Plan Patient/Caregiver Discharge Instructions Activity: increase activity as tolerated Diet: Regular Diet Activity Restrictions/Additional Instructions: Follow-up with infectious disease in the clinic. Prescriptions: Continued hydroxyzine HCl 50 mg tablet 50 mg PO HS Qty: 30 5RF clobetasol 0.05 % cream 1 applic topical BID Qty: 60 0RF albuterol sulfate 90 mcg/actuation HFA aerosol inhaler 2 puff PO Q4H PRN (Reason: for dyspnea) Qty: 8.5 1RF lisinopril-hydrochlorothiazide 20-12.5 mg tablet 1 tab PO DAILY Qty: 90 1RF omeprazole 20 mg capsule,delayed release(DR/EC) 20 mg PO QDAY Qty: 90 1RF multivitamin Tablet 1 tab PO QDAY omega [id number] oil [Fish Oil] 1,200 (144-216) mg Capsule 1 cap PO DAILY polyethylene glycol 3350 [HealthyLax] 17 gram Powder In Packet 17 gm PO DAILYP PRN (Reason: Constipation) Qty: 14 0RF docusate sodium 100 mg Capsule 100 mg PO BID Qty: 60 0RF duloxetine 30 mg capsule,delayed release(DR/EC) 30 mg PO QDAY Liver Support capsule 1 cap PO QDAY acetaminophen 500 mg tablet 1,000 mg PO Q8 PRN (Reason: Pain) methocarbamol 500 mg Tablet 500 mg PO TIDP PRN (Reason: Muscle Spasm) Qty: 30 0RF oxycodone 7.5 mg tablet, oral only 7.5 - 15 mg PO Q4H PRN (Reason: pain) Qty: 60 0RF hydrocodone-acetaminophen 5-325 mg tablet 1 tab PO Q8H PRN (Reason: pain) Qty: 10 0RF hydrocodone-acetaminophen 5-325 mg tablet 1 tab PO Q8H PRN (Reason: pain) Qty: 10 0RF No Action Aspirin 81 mg PO DAILY Follow Up Plan Follow up with: Geetha Garcia [Primary Care Provider] - Darrell Rivera MD [Physician] - Prognosis: Fair Overall status at discharge: patient is progressing back to baseline QUALITY VTE Deep Vein Thrombosis/Pulmonary Embolism Present on Admission: No
[2022-10-14] MEDS ORDERED: LISINOPRIL 20 MG TABLET PO SCH (18:00)
[2022-10-14] MEDS: MELATONIN 3 MG TABLET PO SCH (19:14)
[2022-10-14] MEDS: OLANZapine 5 MG TABLET PO PRN (19:14)
[2022-10-14] MEDS: diphenhydrAMINE 25 MG CAPSULE PO PRN (19:14)
[2022-10-14] MEDS: hydrOXYzine 25 MG TABLET PO SCH (21:24)
[2022-10-14] MEDS: SENNOSIDES 1 TABLET PO SCH (21:25)
[2022-10-15] MEDS: KETOROLAC 30 MG/ML VIAL IV SCH ×2 (00:06→05:13)
[2022-10-15] MEDS: oxyCODONE IR 5 MG TABLET PO PRN ×6 (00:16→22:03)
[2022-10-15] MEDS: VANCOMYCIN 1,250 MG in 0.9 % SODIUM CHLORIDE 500 ML IV SCH ×3 (00:54→20:05)
[2022-10-15] MEDS: 0.9 % SODIUM CHLORIDE 10 ML SYRINGE IV SCH ×6 (05:14→22:03)
[2022-10-15 06:44] LABS: Basophils # (Auto) 0.04 K/mcL (0.00-0.30); Basophils % (Auto) 0.3 % (0.0-2.0); Eosinophils # (Auto) 0.43 K/mcL (0.00-0.70); Eosinophils % (Auto) 3.6 % (0.0-7.0); Hematocrit 34.3 % (40.1-51.0); Lymphocytes # (Auto) 1.43 K/mcL (1.50-4.80); Lymphocytes % (Auto) 11.9 % (15.5-49.0); Mean Cell Volume 92.5 fL (80.0-100.0); Mean Corpuscular HGB Conc 32.1 g/dL (31.0-36.0); Mean Platelet Volume 9.4 fL (8.8-12.5); Monocytes # (Auto) 0.65 K/mcL (0.10-0.90); Monocytes % (Auto) 5.4 % (1.0-12.0); Neutrophils % (Auto) 77.6 % (38.0-78.0); Platelet Count 511 K/mcL (140-440); RBC 3.71 M/mcL (4.63-6.08); WBC 12.1 K/mcL (4.5-11.0)
[2022-10-15] MEDS: OMEPRAZOLE 20 MG CAPSULE PO SCH (06:51)
[2022-10-15 07:11] LABS: ALT/SGPT 16 U/L (<40); AST/SGOT 18 U/L (<40); Albumin 2.9 gm/dL (3.2-5.2); Albumin/Globulin Ratio 0.7 (1.0-2.3); Alkaline Phosphatase 99 U/L (39-117); Bilirubin,Direct < 0.2 mg/dL (0-0.3); Bilirubin,Total 0.3 mg/dL (0.1-1.0); Blood Urea Nitrogen 23 mg/dL (6-20); Calcium 10.4 mg/dL (8.6-10.4); Carbon Dioxide 29 mmol/L (22-30); Chloride 98 mmol/L (96-108); Globulin 3.9 gm/dL (2.2-3.7); Glomerular Filtration Rate 108; Glucose 113 mg/dL (70-105); Lactate Dehydrogenase 266 U/L (135-225); Phosphorous 3.8 mg/dL (2.5-4.5); Triglycerides 78 mg/dL (<150); Uric Acid 5.5 mg/dL (2.5-8.0)
--- NOTE | 2022-10-15 07:29 | Internal Med Progress Note ---
SUBJECTIVE Subjective Patient information: Note initiated : 10/15/22 at 7:26 am Service Date, if different from initiated Date: [] Patient: Leonides Jenkins 52 y/o M admitted on 10/10/22 for increased knee pain. Chief Complaint: [] Principal diagnosis: Septic Rt knee s/p irrigation & debridement Interval history: Chief Complaint: [Cardiac arrest] 52-year-old obese male with a past medical history significant for hypertension, anxiety/depression, and alcohol abuse who presented to the hospital for elective surgery. The patient underwent right total knee arthroplasty, irrigation, and debridement with polyliner exchange and antibiotic bead placement. Postoperatively, after anesthesia induction, he briefly went into PEA arrest requiring cardiopulmonary resuscitation with ROSC. He was extubated overnight and this morning he was alert, oriented x3. Family were present at the bedside. The patient denies chest pain, shortness of breath or palpitations. There were concerns for mild alcohol withdrawal as he was placed on CIWA protocol and did receive Ativan. The hospitalist service was asked to consult to help medically manage the patient. 10/13: The patient was moved out the ICU to [facility]. He remains quite somnolent as he needs IV Ativan for CIWA protocol. He is receiving beer as well. 10/14: Had a lengthy discussion with RN, and with senior case manager regarding the patient's behavior. He did sign the AMA form however was quite confused. He was verbally abusive, shouting and yelling yesterday. The patient receives oxycodone, alcohol, and benzodiazepine subsequently by staffing and then becomes quite sedated and somnolent. This morning he was difficult to wake up. I recommended stopping or decreasing IV Ativan. 10/15 Patient states poor sleep but otherwise no new complaints other than headache. Leukocytosis mildly improved today. Anemia stable. Hyponatremia improved. Review of Systems: denies headache/fever/chills/nausea/vomiting/chest or abdominal pain/cough/dyspnea/diarrhea. Otherwise see above. PHYSICAL EXAM General: Alert, Awake, No acute Distress, obese Eyes/N/T: EOMI, no scleral icterus, Head/Neck: neck supple, full ROM, CV: RRR, No murmurs, Pulm: Clear b/l, no wheezing/rhonchi/rales, no respiratory distress Abd: soft, nontender, +BS x4 Ext: no clubbing/cyanosis/edema, right knee dressings Neuro: Alert, no focal deficits, moves all extremities,, sensations intact b/l upper/lower Psychiatric: Agitated and anxious Skin: warm/dry, normal color Constitutional Vitals: Vital Signs Temp Pulse Resp BP Pulse Ox O2 Del Method O2 Flow Rate 98.1 F 65 22 144/89 94 Room Air 3 10/15/22 04:00 10/15/22 04:00 10/15/22 04:00 10/15/22 04:00 10/15/22 04:00 10/15/22 04:00 10/14/22 12:00 Period Temp Pulse Resp BP Sys/Ward Pulse Ox O2 Del Method O2 Flow Rate Last 24 Hr 98.0 F-98.9 F 56-90 18-22 144-187/70-89 94-97 Oxymask-Room Air 3-3 Intake and Output 10/14/22 10/15/22 10/15/22 19:59 03:59 11:59 Intake Total 900 980 Output Total 600 750 Balance 300 230 Weight 112.945 kg Intake & Output: Intake & Output 10/14/22 10/15/22 10/15/22 19:59 03:59 11:59 Intake Total 900 980 Output Total 600 750 Balance 300 230 Weight 112.945 kg Intake: IV 500 500 Vancomycin 1,250 mg In Sodium 500 500 Chloride 0.9% 500 ml @ 333.3 mls/hr IV Q12H [facility] Rx#: [id number] Oral 400 480 Output: Void Amount 600 750 Other: Urine Appearance Clear Urine Color Yellow Urine Odor Normal Stool Size Large Stool Color Brown Stool Consistency Formed OBJ DATA Labs 10/15/22 05:45 10/15/22 05:45 Labs: Abnormal Lab Results 10/15/22 10/15/22 10/14/22 05:45 05:45 08:43 WBC 12.1 H RBC 3.71 L Hgb 11.0 L Hct 34.3 L RDW 15.0 H Plt Count 511 H Immature Gran % (Auto) 1.2 H Lymph % (Auto) 11.9 L Lymph # (Auto) 1.43 L Immature Gran # 0.15 H Absolute Neutrophils 9.35 H Sodium Chloride BUN 23 H Glucose 113 H Lactate Dehydrogenase 266 H C-Reactive Protein 12.60 H Albumin 2.9 L Globulin 3.9 H Albumin/Globulin Ratio 0.7 L 10/13/22 19:10 WBC RBC Hgb Hct RDW Plt Count Immature Gran % (Auto) Lymph % (Auto) Lymph # (Auto) Immature Gran # Absolute Neutrophils Sodium 132 L Chloride 93 L BUN 25 H Glucose 119 H Lactate Dehydrogenase C-Reactive Protein Albumin Globulin Albumin/Globulin Ratio Meds: Medications Acetaminophen (Acetaminophen 500 Mg Tablet) 1,000 mg PO TID [facility]; Protocol Last Admin: 10/14/22 21:24 Dose: 1,000 mg Albuterol Sulfate (Albuterol Sulfate 60 Puff Inhaler) 2 puff IH Q4HP PRN PRN Reason: for dyspnea Albuterol/Ipratropium (Ipratropium/Albuterol 3 Ml Ampul.Neb) 3 ml NEB Q6HP [facility] Aspirin (Aspirin 81 Mg Tab.Chew) 81 mg CHEWED BID [facility] Last Admin: 10/14/22 21:24 Dose: 81 mg Azithromycin (Azithromycin 250 Mg Tablet) 250 mg PO DAILY [facility]; Protocol Stop: 10/15/22 09:01 Last Admin: 10/14/22 09:33 Dose: 250 mg Bisacodyl (Bisacodyl 10 Mg Supp.Rect) 10 mg NJ Q2-3DAYS PRN PRN Reason: Constipation Diphenhydramine HCl (Diphenhydramine 25 Mg Capsule) 25 mg PO HSP PRN PRN Reason: Insomnia Last Admin: 10/14/22 19:14 Dose: 25 mg Docusate Sodium (Docusate Sodium 100 Mg Capsule) 100 mg PO BID [facility] Last Admin: 10/14/22 21:24 Dose: 100 mg Duloxetine HCl (Duloxetine 30 Mg Capsule) 30 mg PO QDAY [facility] Last Admin: 10/14/22 09:34 Dose: 30 mg Heparin Sodium (Porcine) (Heparin Flush 10 Units/Ml 5 Ml Syringe) 2 ml IV Q12 [facility] Last Admin: 10/14/22 19:28 Dose: Not Given Hydrochlorothiazide (Hydrochlorothiazide 12.5 Mg Capsule) 12.5 mg PO DAILY [facility] Last Admin: 10/14/22 09:32 Dose: 12.5 mg Hydroxyzine HCl (Hydroxyzine 25 Mg Tablet) 50 mg PO HS [facility] Last Admin: 10/14/22 21:24 Dose: 50 mg Vancomycin HCl 1,250 mg/ (Sodium Chloride) 500 mls @ 333.3 mls/hr IV Q12H [facility] Last Infusion: 10/15/22 02:25 Dose: Infused Ceftriaxone Sodium 2 gm/ (Dextrose) 50 mls @ 100 mls/hr IV Q24H [facility] Last Infusion: 10/14/22 10:10 Dose: Infused Lisinopril (Lisinopril 20 Mg Tablet) 20 mg PO DAILY [facility] Last Admin: 10/14/22 09:32 Dose: 20 mg Magnesium Hydroxide (Magnesium Hydroxide 30 Ml Oral.Susp) 30 ml PO BIDP PRN PRN Reason: Constipation Melatonin (Melatonin 3 Mg Tablet) 3 mg PO QPM@1900 [facility] Last Admin: 10/14/22 19:14 Dose: 3 mg Olanzapine (Olanzapine 5 Mg Tablet) 5 mg PO TIDP PRN PRN Reason: agitation Last Admin: 10/14/22 19:14 Dose: 5 mg Omeprazole (Omeprazole 20 Mg Capsule) 20 mg PO QAMAC [facility] Last Admin: 10/15/22 06:51 Dose: 20 mg Ondansetron HCl (Ondansetron 4 Mg/2 Ml Vial) 4 mg IV Q4HP PRN; Protocol PRN Reason: Nausea And Vomiting Last Admin: 10/13/22 21:12 Dose: 4 mg Oxycodone HCl (Oxycodone Hcl 5 Mg Tablet) 10 - 20 mg PO Q6HP PRN; Protocol PRN Reason: Pain Last Admin: 10/15/22 06:51 Dose: 10 mg Polyethylene Glycol (Polyethylene Glycol 3350 17 Gm Packet) 17 gm PO DAILYP PRN PRN Reason: Constipation Senna (Sennosides 1 Tablet) 2 tab PO HS [facility] Last Admin: 10/14/22 21:25 Dose: 2 tab Sodium Biphosphate/Sodium Phosphate (Fleets Adult Enema) 1 dose NJ Q3-4DAYS PRN PRN Reason: Constipation Sodium Chloride (0.9 % Sodium Chloride 10 Ml Syringe) 10 ml IV Q8 [facility] Last Admin: 10/15/22 05:14 Dose: 10 ml Sodium Chloride (0.9 % Sodium Chloride 10 Ml Syringe) 10 ml IV Q12 [facility] Last Admin: 10/14/22 21:28 Dose: 10 ml Sodium Chloride (0.9 % Sodium Chloride 10 Ml Syringe) 10 ml IV UD PRN PRN Reason: FLUSH Throat Lozenges (Benzocaine/Menthol 1 Lozenge) 1 lozenge PO PRN PRN PRN Reason: Sore Throat Vancomycin HCl (Vancomycin Per Pharmacy) 1 order IV UD [facility]; Protocol A/P Narrative A/P Narrative: A: #Cardiac arrest: -Resolved (2/2 polysubstance abuse and catecholamine response post-induction) -It is unclear if there is a cardiopulmonary process. The patient did have CTA chest which was negative for PE, or aortic disease. Initial cardiac enzymes were unrevealing. TTE did not reveal any evidence of wall motion abnormalities and he has a preserved EF of 65%. Electrolytes monitored and repleted. The patient did drink heavily prior to surgery and this was likely component of withdrawal as the achieve ROSC quite quickly. It was also discovered he has been using meth prior to surgery #EtOH abuse and W/D: -Patient also endorsed meth use which contributed to his post-op cardiac arrest #Substance Abuse (Meth): #R knee infection: s/p washout (10/10) -ID consulted, cx revealed MRSA -Due to the patient's polysubstance abuse, he may not be appropriate for PICC line unless he goes to SNF. - #Hyponatremia: improved #HTN: #GERD: #Obesity: bmi 35, lifestyle modifications P: -ID following, cont vanco while inpt, then zyvox PO 600mg bid x4wks and to avoid etoh on abx, f/u in clinic -D/C CIWA protocol today -Postoperative care per orthopedic surgery. Dr. Rivera -cont home ACEI -EtOH and substance use cessation counseling -PT/OT -CM for placement needs -ppx: ASA per ortho / home ppi Time Spent With Patient Time: Total time spent is greater than 50% in coordination of care (as documented) at patient's floor/unit and/or counseling patient: Subsequent: Total time with patient: 50 - 65 Minutes QUALITY VTE Deep Vein Thrombosis/Pulmonary Embolism Present on Admission: No
--- NOTE | 2022-10-15 07:50 | Orthopedic Progress Note ---
SUBJECTIVE Subjective Patient information: Note initiated : 10/15/22 at 7:43 am Service Date, if different from initiated Date: [] Patient: Leonides Jenkins 52 y/o M admitted on 10/10/22 for increased knee pain. Chief Complaint: [no acute issues overnight.] Principal diagnosis: Septic Rt knee s/p irrigation & debridement Constitutional Vitals: Vital Signs Temp Pulse Resp BP Pulse Ox O2 Del Method O2 Flow Rate 98.1 F 65 22 144/89 94 Room Air 3 10/15/22 04:00 10/15/22 04:00 10/15/22 04:00 10/15/22 04:00 10/15/22 04:00 10/15/22 04:00 10/14/22 12:00 Period Temp Pulse Resp BP Sys/Ward Pulse Ox O2 Del Method O2 Flow Rate Last 24 Hr 98.0 F-98.9 F 56-90 18-22 144-187/70-89 94-97 Oxymask-Room Air 3-3 Intake and Output 10/14/22 10/15/22 10/15/22 19:59 03:59 11:59 Intake Total 900 980 Output Total 600 750 Balance 300 230 Weight 249 lb Intake & Output: Intake & Output 10/14/22 10/15/22 10/15/22 19:59 03:59 11:59 Intake Total 900 980 Output Total 600 750 Balance 300 230 Weight 249 lb Intake: IV 500 500 Vancomycin 1,250 mg In Sodium 500 500 Chloride 0.9% 500 ml @ 333.3 mls/hr IV Q12H [facility] Rx#: [id number] Oral 400 480 Output: Void Amount 600 750 Other: Urine Appearance Clear Urine Color Yellow Urine Odor Normal Stool Size Large Stool Color Brown Stool Consistency Formed Additional findings Additional findings: patient awake this AM. appropriate with myself right knee: silver dressing in place. resolved erythema and warmth. foot warm well perfused. OBJ DATA Labs 10/15/22 05:45 10/15/22 05:45 Labs: Abnormal Lab Results 10/15/22 10/15/22 10/14/22 05:45 05:45 08:43 WBC 12.1 H RBC 3.71 L Hgb 11.0 L Hct 34.3 L RDW 15.0 H Plt Count 511 H Immature Gran % (Auto) 1.2 H Lymph % (Auto) 11.9 L Lymph # (Auto) 1.43 L Immature Gran # 0.15 H Absolute Neutrophils 9.35 H Sodium Chloride BUN 23 H Glucose 113 H Lactate Dehydrogenase 266 H C-Reactive Protein 12.60 H Albumin 2.9 L Globulin 3.9 H Albumin/Globulin Ratio 0.7 L 10/13/22 19:10 WBC RBC Hgb Hct RDW Plt Count Immature Gran % (Auto) Lymph % (Auto) Lymph # (Auto) Immature Gran # Absolute Neutrophils Sodium 132 L Chloride 93 L BUN 25 H Glucose 119 H Lactate Dehydrogenase C-Reactive Protein Albumin Globulin Albumin/Globulin Ratio Meds: Medications Acetaminophen (Acetaminophen 500 Mg Tablet) 1,000 mg PO TID [facility]; Protocol Last Admin: 10/14/22 21:24 Dose: 1,000 mg Albuterol Sulfate (Albuterol Sulfate 60 Puff Inhaler) 2 puff IH Q4HP PRN PRN Reason: for dyspnea Albuterol/Ipratropium (Ipratropium/Albuterol 3 Ml Ampul.Neb) 3 ml NEB Q6HP [facility] Aspirin (Aspirin 81 Mg Tab.Chew) 81 mg CHEWED BID [facility] Last Admin: 10/14/22 21:24 Dose: 81 mg Azithromycin (Azithromycin 250 Mg Tablet) 250 mg PO DAILY [facility]; Protocol Stop: 10/15/22 09:01 Last Admin: 10/14/22 09:33 Dose: 250 mg Bisacodyl (Bisacodyl 10 Mg Supp.Rect) 10 mg HI Q2-3DAYS PRN PRN Reason: Constipation Diphenhydramine HCl (Diphenhydramine 25 Mg Capsule) 25 mg PO HSP PRN PRN Reason: Insomnia Last Admin: 10/14/22 19:14 Dose: 25 mg Docusate Sodium (Docusate Sodium 100 Mg Capsule) 100 mg PO BID [facility] Last Admin: 10/14/22 21:24 Dose: 100 mg Duloxetine HCl (Duloxetine 30 Mg Capsule) 30 mg PO QDAY [facility] Last Admin: 10/14/22 09:34 Dose: 30 mg Heparin Sodium (Porcine) (Heparin Flush 10 Units/Ml 5 Ml Syringe) 2 ml IV Q12 [facility] Last Admin: 10/14/22 19:28 Dose: Not Given Hydrochlorothiazide (Hydrochlorothiazide 12.5 Mg Capsule) 12.5 mg PO DAILY [facility] Last Admin: 10/14/22 09:32 Dose: 12.5 mg Hydroxyzine HCl (Hydroxyzine 25 Mg Tablet) 50 mg PO HS [facility] Last Admin: 10/14/22 21:24 Dose: 50 mg Vancomycin HCl 1,250 mg/ (Sodium Chloride) 500 mls @ 333.3 mls/hr IV Q12H [facility] Last Infusion: 10/15/22 02:25 Dose: Infused Ceftriaxone Sodium 2 gm/ (Dextrose) 50 mls @ 100 mls/hr IV Q24H [facility] Last Infusion: 10/14/22 10:10 Dose: Infused Lisinopril (Lisinopril 20 Mg Tablet) 20 mg PO DAILY [facility] Last Admin: 10/14/22 09:32 Dose: 20 mg Magnesium Hydroxide (Magnesium Hydroxide 30 Ml Oral.Susp) 30 ml PO BIDP PRN PRN Reason: Constipation Melatonin (Melatonin 3 Mg Tablet) 3 mg PO QPM@1900 [facility] Last Admin: 10/14/22 19:14 Dose: 3 mg Olanzapine (Olanzapine 5 Mg Tablet) 5 mg PO TIDP PRN PRN Reason: agitation Last Admin: 10/14/22 19:14 Dose: 5 mg Omeprazole (Omeprazole 20 Mg Capsule) 20 mg PO QAMAC [facility] Last Admin: 10/15/22 06:51 Dose: 20 mg Ondansetron HCl (Ondansetron 4 Mg/2 Ml Vial) 4 mg IV Q4HP PRN; Protocol PRN Reason: Nausea And Vomiting Last Admin: 10/13/22 21:12 Dose: 4 mg Oxycodone HCl (Oxycodone Hcl 5 Mg Tablet) 10 - 20 mg PO Q6HP PRN; Protocol PRN Reason: Pain Last Admin: 10/15/22 06:51 Dose: 10 mg Polyethylene Glycol (Polyethylene Glycol 3350 17 Gm Packet) 17 gm PO DAILYP PRN PRN Reason: Constipation Senna (Sennosides 1 Tablet) 2 tab PO HS [facility] Last Admin: 10/14/22 21:25 Dose: 2 tab Sodium Biphosphate/Sodium Phosphate (Fleets Adult Enema) 1 dose HI Q3-4DAYS PRN PRN Reason: Constipation Sodium Chloride (0.9 % Sodium Chloride 10 Ml Syringe) 10 ml IV Q8 [facility] Last Admin: 10/15/22 05:14 Dose: 10 ml Sodium Chloride (0.9 % Sodium Chloride 10 Ml Syringe) 10 ml IV Q12 [facility] Last Admin: 10/14/22 21:28 Dose: 10 ml Sodium Chloride (0.9 % Sodium Chloride 10 Ml Syringe) 10 ml IV UD PRN PRN Reason: FLUSH Throat Lozenges (Benzocaine/Menthol 1 Lozenge) 1 lozenge PO PRN PRN PRN Reason: Sore Throat Vancomycin HCl (Vancomycin Per Pharmacy) 1 order IV UD [facility]; Protocol A/P Assessment and plan (1) Infection of prosthetic right knee joint: Status: Acute (2) Postoperative infection of knee: Assessment and plan: POD4 s/p I&D total knee arthroplasty infection, poly exchange, antibiotic bead placement -- 50% weight bearing, hinged knee brace with ambulation -- blood culture negative to date, synovial fluid 95K nucleated cells, gram stain with gram positive in clusters, cultures staph aureus with sensitivity with positive for MRSA --------PICC line ordered ID consult completed- recommend continue vancomycin, rocephin. Hold rifampin for now given elevated liver enzymes (likely from alcohol). However, normal liver enzymes at this time. will plan to add rifampin. -- CIWI d/c. Patient awake this AM. Pt is being loud and yelling at mother and compulsive. Discussed behavior and overall plan with him today. Discussed IV drug use and alcohol use. Discussed if he wants to keep his leg my offer to him his rehab for 6 weeks with a PICC line, he changes his behavior towards the ones that are trying to help him, decrease alcohol intake. He reports he does not need the alcohol. He is willing to proceed with the plan otherwise, he will loose his leg with an above knee ambutation. Discussed with MRSA, it is more difficult to rid of infection. His CRP yesterday is 12.6 which is less than 1/2 of prior, left shift has resolved, clinically improved. Will have case management discuss with him today, rehab placement and if agrees, place PICC line and work on disposition. Continue IV vancomycin, add rifampin -- Dispo: pending. Status: Acute Time Spent With Patient Time: Total time spent is greater than 50% in coordination of care (as documented) at patient's floor/unit and/or counseling patient:
[2022-10-15 08:24] LABS: Anisocytosis 1+ (None Seen); Band Neutrophils % 3 % (0-10); Eosinophils % (Manual) 4 % (0-7); Lymphocytes % 11 % (15-49); Monocytes % (Manual) 8 % (1-12); Platelet Estimate DECREASED (Normal); RBC Morphology ABNORMAL (Normal); Segmented Neutrophils % 74 % (38-78)
[2022-10-15] MEDS: AZITHROMYCIN 250 MG TABLET PO SCH (08:28)
[2022-10-15] MEDS: ASPIRIN 81 MG TAB.CHEW CHEWED SCH ×2 (08:28→20:04)
[2022-10-15] MEDS: HYDROCHLOROTHIAZIDE 12.5 MG CAPSULE PO SCH (08:28)
[2022-10-15] MEDS: DOCUSATE SODIUM 100 MG CAPSULE PO SCH ×2 (08:28→20:04)
[2022-10-15] MEDS: ACETAMINOPHEN 500 MG TABLET PO SCH ×3 (08:28→20:04)
[2022-10-15] MEDS: cefTRIAXone 2 GM in DEXTROSE 5% IN WATER 50 ML IV SCH (08:29)
[2022-10-15] MEDS: DULoxetine 30 MG CAPSULE PO SCH (08:29)
[2022-10-15] MEDS: LISINOPRIL 20 MG TABLET PO SCH (08:43)
[2022-10-15] MEDS: RIFAMPIN 600 MG in 0.9 % SODIUM CHLORIDE 100 ML IV SCH (10:46)
[2022-10-15] MEDS: OLANZapine 5 MG TABLET PO PRN (17:04)
[2022-10-15] MEDS: hydrOXYzine 25 MG TABLET PO SCH (20:03)
[2022-10-15] MEDS: SENNOSIDES 1 TABLET PO SCH (20:04)
[2022-10-15] MEDS: MELATONIN 3 MG TABLET PO SCH (20:04)
[2022-10-16] MEDS: OLANZapine 5 MG TABLET PO PRN (00:20)
[2022-10-16] MEDS: diphenhydrAMINE 25 MG CAPSULE PO PRN (00:20)
[2022-10-16] MEDS: oxyCODONE IR 5 MG TABLET PO PRN ×4 (05:59→23:15)
[2022-10-16] MEDS: 0.9 % SODIUM CHLORIDE 10 ML SYRINGE IV SCH ×6 (06:01→20:36)
--- NOTE | 2022-10-16 06:35 | Orthopedic Progress Note ---
SUBJECTIVE Subjective Patient information: Note initiated : 10/16/22 at 6:30 am Service Date, if different from initiated Date: [] Patient: Leonides Jenkins 52 y/o M admitted on 10/10/22 for increased knee pain. Chief Complaint: [did better yesterday but quite sore through the chest area, aches all over.] Principal diagnosis: Septic Rt knee s/p irrigation & debridement Constitutional Vitals: Vital Signs Temp Pulse Resp BP Pulse Ox O2 Del Method O2 Flow Rate 98.9 F 86 24 H 154/82 90 Room Air 3 10/16/22 03:50 10/16/22 03:50 10/16/22 03:50 10/16/22 03:50 10/16/22 03:50 10/16/22 03:50 10/14/22 12:00 Period Temp Pulse Resp BP Sys/Ward Pulse Ox O2 Del Method O2 Flow Rate Last 24 Hr 97.7 F-98.9 F 67-87 18-24 134-179/74-94 90-93 Room Air-Room Air Intake and Output 10/15/22 10/16/22 10/16/22 19:59 03:59 11:59 Intake Total 840 800 Output Total 900 1275 350 Balance -60 -475 -350 Weight 245 lb 1.6 oz Intake & Output: Intake & Output 10/15/22 10/16/22 10/16/22 19:59 03:59 11:59 Intake Total 840 800 Output Total 900 1275 350 Balance -60 -475 -350 Weight 245 lb 1.6 oz Intake: IV 600 500 Rifampin 600 mg In Sodium 100 Chloride 0.9% 100 ml @ 100 mls/ hr IV Q24H [facility] Rx#:[id number] Vancomycin 1,250 mg In Sodium 500 500 Chloride 0.9% 500 ml @ 333.3 mls/hr IV Q12H [facility] Rx#: [id number] Oral 240 300 Output: Void Amount 900 1275 350 Other: Meal Lunch Percent of Meal Consumed 100% Feeding Ability Independent Urine Appearance Clear Clear Urine Color Bradley Yellow Bradley Additional findings Additional findings: alert and appropriate right knee: dressing clean, dry and intact. mild warmth, swelling decreased, foot warm well perfused. OBJ DATA Labs 10/15/22 05:45 10/15/22 05:45 Labs: Abnormal Lab Results 0410/15/22 10/15/22 05:45 05:45 05:30 WBC 12.1 H RBC 3.71 L Hgb 11.0 L Hct 34.3 L RDW 15.0 H Plt Count 511 H Immature Gran % (Auto) 1.2 H Lymph % (Auto) 11.9 L Lymph # (Auto) 1.43 L Lymphocytes % 11 L Immature Gran # 0.15 H Absolute Neutrophils 9.35 H Platelet Estimate Decreased A RBC Morphology Abnormal A Anisocytosis 1+ A Sodium Chloride BUN 23 H Glucose 113 H Lactate Dehydrogenase 266 H C-Reactive Protein Albumin 2.9 L Globulin 3.9 H Albumin/Globulin Ratio 0.7 L 10/14/22 10/13/22 08:43 19:10 WBC RBC Hgb Hct RDW Plt Count Immature Gran % (Auto) Lymph % (Auto) Lymph # (Auto) Lymphocytes % Immature Gran # Absolute Neutrophils Platelet Estimate RBC Morphology Anisocytosis Sodium 132 L Chloride 93 L BUN 25 H Glucose 119 H Lactate Dehydrogenase C-Reactive Protein 12.60 H Albumin Globulin Albumin/Globulin Ratio Meds: Medications Acetaminophen (Acetaminophen 500 Mg Tablet) 1,000 mg PO TID [facility]; Protocol Last Admin: 10/15/22 20:04 Dose: 1,000 mg Albuterol Sulfate (Albuterol Sulfate 60 Puff Inhaler) 2 puff IH Q4HP PRN PRN Reason: for dyspnea Albuterol/Ipratropium (Ipratropium/Albuterol 3 Ml Ampul.Neb) 3 ml NEB Q6HP [facility] Aspirin (Aspirin 81 Mg Tab.Chew) 81 mg CHEWED BID [facility] Last Admin: 10/15/22 20:04 Dose: 81 mg Bisacodyl (Bisacodyl 10 Mg Supp.Rect) 10 mg [place] Q2-3DAYS PRN PRN Reason: Constipation Diphenhydramine HCl (Diphenhydramine 25 Mg Capsule) 25 mg PO HSP PRN PRN Reason: Insomnia Last Admin: 10/16/22 00:20 Dose: 25 mg Docusate Sodium (Docusate Sodium 100 Mg Capsule) 100 mg PO BID [facility] Last Admin: 10/15/22 20:04 Dose: 100 mg Duloxetine HCl (Duloxetine 30 Mg Capsule) 30 mg PO QDAY [facility] Last Admin: 10/15/22 08:29 Dose: 30 mg Heparin Sodium (Porcine) (Heparin Flush 10 Units/Ml 5 Ml Syringe) 2 ml IV Q12 [facility] Last Admin: 10/15/22 20:54 Dose: Not Given Hydrochlorothiazide (Hydrochlorothiazide 12.5 Mg Capsule) 12.5 mg PO DAILY [facility] Last Admin: 10/15/22 08:28 Dose: 12.5 mg Hydroxyzine HCl (Hydroxyzine 25 Mg Tablet) 50 mg PO [facility] Last Admin: 10/15/22 20:03 Dose: 50 mg Vancomycin HCl 1,250 mg/ (Sodium Chloride) 500 mls @ 333.3 mls/hr IV Q12H [facility] Last Infusion: 10/15/22 21:59 Dose: Infused Ceftriaxone Sodium 2 gm/ (Dextrose) 50 mls @ 100 mls/hr IV Q24H [facility] Last Infusion: 10/15/22 09:12 Dose: Infused Rifampin 600 mg/ Sodium (Chloride) 100 mls @ 100 mls/hr IV Q24H [facility]; Protocol Last Infusion: 10/15/22 12:00 Dose: Infused Lisinopril (Lisinopril 20 Mg Tablet) 20 mg PO DAILY [facility] Last Admin: 10/15/22 08:43 Dose: 20 mg Magnesium Hydroxide (Magnesium Hydroxide 30 Ml Oral.Susp) 30 ml PO BIDP PRN PRN Reason: Constipation Melatonin (Melatonin 3 Mg Tablet) 3 mg PO QPM@1900 [facility] Last Admin: 10/15/22 20:04 Dose: 3 mg Olanzapine (Olanzapine 5 Mg Tablet) 5 mg PO TIDP PRN PRN Reason: agitation Last Admin: 10/16/22 00:20 Dose: 5 mg [facility]eprazole ([facility] Mg [facility]apsule) [facility] Last Admin: 10/15/22 06:51 Dose: 20 mg Ondansetron HCl (Ondansetron 4 Mg/2 Ml Vial) 4 mg IV Q4HP PRN; Protocol PRN Reason: Nausea And Vomiting Last Admin: 10/13/22 21:12 Dose: 4 mg Oxycodone HCl (Oxycodone Hcl 5 Mg Tablet) 10 - 20 mg PO Q6HP PRN; Protocol PRN Reason: Pain Last Admin: 10/16/22 05:59 Dose: 20 mg Polyethylene Glycol (Polyethylene Glycol 3350 17 Gm Packet) 17 gm PO DAILYP PRN PRN Reason: Constipation Senna (Sennosides 1 Tablet) 2 tab PO [facility] Last Admin: 10/15/22 20:04 Dose: 2 tab Sodium Biphosphate/Sodium Phosphate (Fleets Adult Enema) 1 dose [place] Q3-4DAYS PRN PRN Reason: Constipation Sodium Chloride (0.9 % Sodium Chloride 10 Ml Syringe) 10 ml IV Q8 [facility] Last Admin: 10/16/22 06:01 Dose: 10 ml Sodium Chloride (0.9 % Sodium Chloride 10 Ml Syringe) 10 ml IV Q12 [facility] Last Admin: 10/15/22 22:03 Dose: Not Given Sodium Chloride (0.9 % Sodium Chloride 10 Ml Syringe) 10 ml IV UD PRN PRN Reason: FLUSH Throat Lozenges (Benzocaine/Menthol 1 Lozenge) 1 lozenge PO PRN PRN PRN Reason: Sore Throat Vancomycin HCl (Vancomycin Per Pharmacy) 1 order IV UD [facility]; Protocol A/P Assessment and plan (1) Infection of prosthetic right knee joint: Status: Acute (2) Postoperative infection of knee: Assessment and plan: POD6 s/p I&D total knee arthroplasty infection, poly exchange, antibiotic bead placement -- 50% weight bearing, hinged knee brace with ambulation -- blood culture negative to date, synovial fluid 95K nucleated cells, gram stain with gram positive in clusters, cultures staph aureus with sensitivity with positive for MRSA --------PICC line ordered and will only be completed once decided on SNF with disposition. vancomycin/rifampin. ID consult completed ---CRP pending this AM -- CIWI d/c. Did well yesterday, discussed that he will have soreness/pain as all the medication is leaving the system including drugs. The chest pain is from CPR. will add robaxin to medication -- ok to shower, will see policy regarding having mother stay with him overnight -- dispo: will need SNF for IV abx- ID recommends 4 weeks IV however, typically is 6 weeks which I will plan for. Status: Acute Time Spent With Patient Time: Total time spent is greater than 50% in coordination of care (as documented) at patient's floor/unit and/or counseling patient:
[2022-10-16] MEDS: OMEPRAZOLE 20 MG CAPSULE PO SCH (07:14)
--- NOTE | 2022-10-16 07:25 | Internal Med Progress Note ---
SUBJECTIVE Subjective Patient information: Note initiated : 10/16/22 at 7:23 am Service Date, if different from initiated Date: [] Patient: Leonides Jenkins 52 y/o M admitted on 10/10/22 for increased knee pain. Chief Complaint: [] Principal diagnosis: Septic Rt knee s/p irrigation & debridement Interval history: Chief Complaint: [Cardiac arrest] 52-year-old obese male with a past medical history significant for hypertension, anxiety/depression, and alcohol abuse who presented to the hospital for elective surgery. The patient underwent right total knee arthroplasty, irrigation, and debridement with polyliner exchange and antibiotic bead placement. Postoperatively, after anesthesia induction, he briefly went into PEA arrest requiring cardiopulmonary resuscitation with ROSC. He was extubated overnight and this morning he was alert, oriented x3. Family were present at the bedside. The patient denies chest pain, shortness of breath or palpitations. There were concerns for mild alcohol withdrawal as he was placed on CIWA protocol and did receive Ativan. The hospitalist service was asked to consult to help medically manage the patient. 10/13: The patient was moved out the ICU to [facility]. He remains quite somnolent as he needs IV Ativan for CIWA protocol. He is receiving beer as well. 10/14: Had a lengthy discussion with RN, and with case aide regarding the patient's behavior. He did sign the AMA form however was quite confused. He was verbally abusive, shouting and yelling yesterday. The patient receives oxycodone, alcohol, and benzodiazepine subsequently by staffing and then becomes quite sedated and somnolent. This morning he was difficult to wake up. I recommended stopping or decreasing IV Ativan. 10/15 Patient states poor sleep but otherwise no new complaints other than headache. Leukocytosis mildly improved today. Anemia stable. Hyponatremia improved. 10/16 Patient complains of poor sleep. Complains of headaches and had some nausea this morning. Continue wound care and placement options. Continue IV antibiotics Review of Systems: denies headache/fever/chills/nausea/vomiting/chest or abdominal pain/cough/dyspnea/diarrhea. Otherwise see above. PHYSICAL EXAM General: Alert, Awake, No acute Distress, obese Eyes/N/T: EOMI, no scleral icterus, Head/Neck: neck supple, full ROM, CV: RRR, 2/6SM, Pulm: Clear b/l, no wheezing/rhonchi/rales, no respiratory distress Abd: soft, nontender, +BS x4 Ext: no clubbing/cyanosis/edema, right knee dressings Neuro: Alert, no focal deficits, moves all extremities,, sensations intact b/l upper/lower Psychiatric: Agitated and anxious Skin: warm/dry, normal color Constitutional Vitals: Vital Signs Temp Pulse Resp BP Pulse Ox O2 Del Method O2 Flow Rate 98.9 F 86 24 H 154/82 90 Room Air 3 10/16/22 03:50 10/16/22 03:50 10/16/22 03:50 10/16/22 03:50 10/16/22 03:50 10/16/22 03:50 10/14/22 12:00 Period Temp Pulse Resp BP Sys/Ward Pulse Ox O2 Del Method O2 Flow Rate Last 24 Hr 97.7 F-98.9 F 67-87 18-24 134-179/74-94 90-93 Room Air-Room Air Intake and Output 10/15/22 10/16/22 10/16/22 19:59 03:59 11:59 Intake Total 840 800 Output Total 900 1275 350 Balance -60 -475 -350 Weight 111.175 kg Intake & Output: Intake & Output 10/15/22 10/16/22 10/16/22 19:59 03:59 11:59 Intake Total 840 800 Output Total 900 1275 350 Balance -60 -475 -350 Weight 111.175 kg Intake: IV 600 500 Rifampin 600 mg In Sodium 100 Chloride 0.9% 100 ml @ 100 mls/ hr IV Q24H [facility] Rx#:[id number] Vancomycin 1,250 mg In Sodium 500 500 Chloride 0.9% 500 ml @ 333.3 mls/hr IV Q12H [facility] Rx#: [id number] Oral 240 300 Output: Void Amount 900 1275 350 Other: Meal Lunch Percent of Meal Consumed 100% Feeding Ability Independent Urine Appearance Clear Clear Urine Color [facility] Yellow [facility] [facility] OBJ DATA Labs 10/15/22 05:45 10/15/22 05:45 Labs: Abnormal Lab Results 10/16/22 10/15/22 10/15/22 06:04 05:45 05:45 WBC 12.1 H RBC 3.71 L Hgb 11.0 L Hct 34.3 L RDW 15.0 H Plt Count 511 H Immature Gran % (Auto) 1.2 H Lymph % (Auto) 11.9 L Lymph # (Auto) 1.43 L Lymphocytes % Immature Gran # 0.15 H Absolute Neutrophils 9.35 H Platelet Estimate RBC Morphology Anisocytosis Sodium Chloride BUN 23 H Glucose 113 H Lactate Dehydrogenase 266 H C-Reactive Protein 18.20 H Albumin 2.9 L Globulin 3.9 H Albumin/Globulin Ratio 0.7 L 10/15/22 10/14/22 10/13/22 05:30 08:43 19:10 WBC RBC Hgb Hct RDW Plt Count Immature Gran % (Auto) Lymph % (Auto) Lymph # (Auto) Lymphocytes % 11 L Immature Gran # Absolute Neutrophils Platelet Estimate Decreased A RBC Morphology Abnormal A Anisocytosis 1+ A Sodium 132 L Chloride 93 L BUN 25 H Glucose 119 H Lactate Dehydrogenase C-Reactive Protein 12.60 H Albumin Globulin Albumin/Globulin Ratio Meds: Medications Acetaminophen (Acetaminophen 500 Mg Tablet) 1,000 mg PO TID [facility]; Protocol Last Admin: 10/15/22 20:04 Dose: 1,000 mg Albuterol Sulfate (Albuterol Sulfate 60 Puff Inhaler) 2 puff IH Q4HP PRN PRN Reason: for dyspnea Albuterol/Ipratropium (Ipratropium/Albuterol 3 Ml Ampul.Neb) 3 ml NEB Q6HP [facility] Aspirin (Aspirin 81 Mg Tab.Chew) 81 mg CHEWED BID [facility] Last Admin: 10/15/22 20:04 Dose: 81 mg Bisacodyl (Bisacodyl 10 Mg Supp.Rect) 10 mg [place] Q2-3DAYS PRN PRN Reason: Constipation Diphenhydramine HCl (Diphenhydramine 25 Mg Capsule) 25 mg PO HSP PRN PRN Reason: Insomnia Last Admin: 10/16/22 00:20 Dose: 25 mg Docusate Sodium (Docusate Sodium 100 Mg Capsule) 100 mg PO BID [facility] Last Admin: 10/15/22 20:04 Dose: 100 mg Duloxetine HCl (Duloxetine 30 Mg Capsule) 30 mg PO QDAY [facility] Last Admin: 10/15/22 08:29 Dose: 30 mg Heparin Sodium (Porcine) (Heparin Flush 10 Units/Ml 5 Ml Syringe) 2 ml IV Q12 [facility] Last Admin: 10/15/22 20:54 Dose: Not Given Hydrochlorothiazide (Hydrochlorothiazide 12.5 Mg Capsule) 12.5 mg PO DAILY [facility] Last Admin: 10/15/22 08:28 Dose: 12.5 mg Hydroxyzine HCl (Hydroxyzine 25 Mg Tablet) 50 mg PO [facility] Last Admin: 10/15/22 20:03 Dose: 50 mg Vancomycin HCl 1,250 mg/ (Sodium Chloride) 500 mls @ 333.3 mls/hr IV Q12H [facility] Last Infusion: 10/15/22 21:59 Dose: Infused Ceftriaxone Sodium 2 gm/ (Dextrose) 50 mls @ 100 mls/hr IV Q24H [facility] Last Infusion: 10/15/22 09:12 Dose: Infused Rifampin 600 mg/ Sodium (Chloride) 100 mls @ 100 mls/hr IV Q24H [facility]; Protocol Last Infusion: 10/15/22 12:00 Dose: Infused Lisinopril (Lisinopril 20 Mg Tablet) 20 mg PO DAILY [facility] Last Admin: 10/15/22 08:43 Dose: 20 mg Magnesium Hydroxide (Magnesium Hydroxide 30 Ml Oral.Susp) 30 ml PO BIDP PRN PRN Reason: Constipation Melatonin (Melatonin 3 Mg Tablet) 3 mg PO QPM@1900 [facility] Last Admin: 10/15/22 20:04 Dose: 3 mg Methocarbamol (Methocarbamol 750 Mg Tablet) 750 mg PO TIDP PRN PRN Reason: Muscle Spasm Olanzapine (Olanzapine 5 Mg Tablet) 5 mg PO TIDP PRN PRN Reason: agitation Last Admin: 10/16/22 00:20 Dose: 5 mg [facility]eprazole ([facility]ule) [facility] Admin: 10/16/22 07:14 Dose: 20 mg Ondansetron HCl (Ondansetron 4 Mg/2 Ml Vial) 4 mg IV Q4HP PRN; Protocol PRN Reason: Nausea And Vomiting Last Admin: 10/13/22 21:12 Dose: 4 mg Oxycodone HCl (Oxycodone Hcl 5 Mg Tablet) 10 - 20 mg PO Q6HP PRN; Protocol PRN Reason: Pain Last Admin: 10/16/22 05:59 Dose: 20 mg Polyethylene Glycol (Polyethylene Glycol 3350 17 Gm Packet) 17 gm PO DAILYP PRN PRN Reason: Constipation Senna (Sennosides 1 Tablet) 2 tab PO [facility] Last Admin: 10/15/22 20:04 Dose: 2 tab Sodium Biphosphate/Sodium Phosphate (Fleets Adult Enema) 1 dose [place] Q3-4DAYS PRN PRN Reason: Constipation Sodium Chloride (0.9 % Sodium Chloride 10 Ml Syringe) 10 ml IV Q8 [facility] Last Admin: 10/16/22 06:01 Dose: 10 ml Sodium Chloride (0.9 % Sodium Chloride 10 Ml Syringe) 10 ml IV Q12 [facility] Last Admin: 10/15/22 22:03 Dose: Not Given Sodium Chloride (0.9 % Sodium Chloride 10 Ml Syringe) 10 ml IV UD PRN PRN Reason: FLUSH Throat Lozenges (Benzocaine/Menthol 1 Lozenge) 1 lozenge PO PRN PRN PRN Reason: Sore Throat Vancomycin HCl (Vancomycin Per Pharmacy) 1 order IV UD [facility]; Protocol A/P Narrative A/P Narrative: A: #Cardiac arrest: -Resolved (2/2 polysubstance abuse and catecholamine response post-induction) -It is unclear if there is a cardiopulmonary process. The patient did have CTA chest which was negative for PE, or aortic disease. Initial cardiac enzymes were unrevealing. TTE did not reveal any evidence of wall motion abnormalities and he has a preserved EF of 65%. Electrolytes monitored and repleted. The patient did drink heavily prior to surgery and this was likely component of withdrawal as the achieve ROSC quite quickly. It was also discovered he has been using meth prior to surgery #EtOH abuse and W/D: -Patient also endorsed meth use which contributed to his post-op cardiac arrest #Substance Abuse (Meth): #R knee infection: s/p washout (10/10) -ID consulted, cx revealed MRSA -Due to the patient's polysubstance abuse, he may not be appropriate for PICC line unless he goes to SNF. -goal is SNF with PICC #Hyponatremia: improved #HTN: #GERD: #Obesity: bmi 35, lifestyle modifications P: -ID following, cont vanco while inpt, then zyvox PO (if going home instead of SNF) 600mg bid x4wks and to avoid etoh on abx -goal is to SNF with PICC -f/u in ID clinic -Postoperative care per orthopedic surgery. Dr. Rivera -beer with meals -cont home ACEI -EtOH and substance use cessation counseling -PT/OT -CM for placement needs -ppx: ASA per ortho / home ppi Time Spent With Patient Time: Total time spent is greater than 50% in coordination of care (as documented) at patient's floor/unit and/or counseling patient: Subsequent: Total time with patient: 50 - 65 Minutes QUALITY VTE Deep Vein Thrombosis/Pulmonary Embolism Present on Admission: No
[2022-10-16] MEDS: DULoxetine 30 MG CAPSULE PO SCH (08:39)
[2022-10-16] MEDS: ACETAMINOPHEN 500 MG TABLET PO SCH ×3 (08:39→20:19)
[2022-10-16] MEDS: HYDROCHLOROTHIAZIDE 12.5 MG CAPSULE PO SCH (08:39)
[2022-10-16] MEDS: ASPIRIN 81 MG TAB.CHEW CHEWED SCH ×2 (08:39→20:19)
[2022-10-16] MEDS: METHOCARBAMOL 750 MG TABLET PO PRN ×3 (08:40→20:18)
[2022-10-16] MEDS: DOCUSATE SODIUM 100 MG CAPSULE PO SCH ×2 (08:40→20:19)
[2022-10-16] MEDS: LISINOPRIL 20 MG TABLET PO SCH (08:40)
[2022-10-16] MEDS: cefTRIAXone 2 GM in DEXTROSE 5% IN WATER 50 ML IV SCH (08:41)
[2022-10-16] MEDS: VANCOMYCIN 1,250 MG in 0.9 % SODIUM CHLORIDE 500 ML IV SCH ×2 (10:48→20:19)
[2022-10-16] MEDS: RIFAMPIN 600 MG in 0.9 % SODIUM CHLORIDE 100 ML IV SCH (13:04)
[2022-10-16] MEDS: SENNOSIDES 1 TABLET PO SCH (20:18)
[2022-10-16] MEDS: hydrOXYzine 25 MG TABLET PO SCH (20:18)
[2022-10-16] MEDS: MELATONIN 3 MG TABLET PO SCH (20:19)
[2022-10-17] MEDS: oxyCODONE IR 5 MG TABLET PO PRN ×4 (05:47→23:13)
--- NOTE | 2022-10-17 06:52 | Internal Med Progress Note ---
SUBJECTIVE Subjective Patient information: Note initiated : 10/17/22 at 6:51 am Service Date, if different from initiated Date: [] Patient: Leonides Jenkins 52 y/o M admitted on 10/10/22 for increased knee pain. Chief Complaint: [] Principal diagnosis: Septic Rt knee s/p irrigation & debridement Interval history: Chief Complaint: [Cardiac arrest] 52-year-old obese male with a past medical history significant for hypertension, anxiety/depression, and alcohol abuse who presented to the hospital for elective surgery. The patient underwent right total knee arthroplasty, irrigation, and debridement with polyliner exchange and antibiotic bead placement. Postoperatively, after anesthesia induction, he briefly went into PEA arrest requiring cardiopulmonary resuscitation with ROSC. He was extubated overnight and this morning he was alert, oriented x3. Family were present at the bedside. The patient denies chest pain, shortness of breath or palpitations. There were concerns for mild alcohol withdrawal as he was placed on CIWA protocol and did receive Ativan. The hospitalist service was asked to consult to help medically manage the patient. 10/13: The patient was moved out the ICU to [facility]. He remains quite somnolent as he needs IV Ativan for CIWA protocol. He is receiving beer as well. 10/14: Had a lengthy discussion with RN, and with case management manager regarding the patient's behavior. He did sign the AMA form however was quite confused. He was verbally abusive, shouting and yelling yesterday. The patient receives oxycodone, alcohol, and benzodiazepine subsequently by staffing and then becomes quite sedated and somnolent. This morning he was difficult to wake up. I recommended stopping or decreasing IV Ativan. 10/15 Patient states poor sleep but otherwise no new complaints other than headache. Leukocytosis mildly improved today. Anemia stable. Hyponatremia improved. 10/16 Patient complains of poor sleep. Complains of headaches and had some nausea this morning. Continue wound care and placement options. Continue IV antibiotics 10/17 Patient slept great last night he says. Patient cooperative with cares. No acute events overnight Review of Systems: denies headache/fever/chills/nausea/vomiting/chest or abdominal pain/cough/dyspnea/diarrhea. Otherwise see above. PHYSICAL EXAM General: Alert, Awake, No acute Distress, obese Eyes/N/T: EOMI, no scleral icterus, Head/Neck: neck supple, full ROM, CV: RRR, 2/6SM, Pulm: Clear b/l, no wheezing/rhonchi/rales, no respiratory distress Abd: soft, nontender, +BS x4 Ext: no clubbing/cyanosis/edema, right knee dressings Neuro: Alert, no focal deficits, moves all extremities,, sensations intact b/l upper/lower Psychiatric: Agitated and anxious Skin: warm/dry, normal color Constitutional Vitals: Vital Signs Temp Pulse Resp BP Pulse Ox O2 Del Method O2 Flow Rate 98.4 F 89 18 144/84 92 Room Air 3 10/17/22 05:48 10/17/22 05:48 10/17/22 05:48 10/17/22 05:48 10/17/22 05:48 10/17/22 05:48 10/14/22 12:00 Period Temp Pulse Resp BP Sys/Ward Pulse Ox O2 Del Method O2 Flow Rate Last 24 Hr 97.7 F-98.6 F 67-91 18-24 116-151/68-85 90-93 Room Air-Room Air Intake and Output 10/16/22 10/17/22 10/17/22 19:59 03:59 11:59 Intake Total 960 500 640 Output Total 350 400 350 Balance 610 100 290 Weight 111.13 kg Intake & Output: Intake & Output 10/16/22 10/17/22 10/17/22 19:59 03:59 11:59 Intake Total 960 500 640 Output Total 350 400 350 Balance 610 100 290 Weight 111.13 kg Intake: IV 600 500 Rifampin 600 mg In Sodium 100 Chloride 0.9% 100 ml @ 100 mls/ hr IV Q24H [facility] Rx#:[id number] Vancomycin 1,250 mg In Sodium 500 500 Chloride 0.9% 500 ml @ 333.3 mls/hr IV Q12H [facility] Rx#: [id number] Oral 360 640 Output: Void Amount 350 400 350 Other: Meal Lunch Percent of Meal Consumed 75% Feeding Ability Independent Urine Appearance Clear Clear Urine Color [place] Yellow # Voids 1 OBJ DATA Labs 10/15/22 05:45 10/15/22 05:45 Labs: Abnormal Lab Results 10/16/22 10/15/22 10/15/22 06:04 05:45 05:45 WBC 12.1 H RBC 3.71 L Hgb 11.0 L Hct 34.3 L RDW 15.0 H Plt Count 511 H Immature Gran % (Auto) 1.2 H Lymph % (Auto) 11.9 L Lymph # (Auto) 1.43 L Lymphocytes % Immature Gran # 0.15 H Absolute Neutrophils 9.35 H Platelet Estimate RBC Morphology Anisocytosis BUN 23 H Glucose 113 H Lactate Dehydrogenase 266 H C-Reactive Protein 18.20 H Albumin 2.9 L Globulin 3.9 H Albumin/Globulin Ratio 0.7 L 10/15/22 10/14/22 05:30 08:43 WBC RBC Hgb Hct RDW Plt Count Immature Gran % (Auto) Lymph % (Auto) Lymph # (Auto) Lymphocytes % 11 L Immature Gran # Absolute Neutrophils Platelet Estimate Decreased A RBC Morphology Abnormal A Anisocytosis 1+ A BUN Glucose Lactate Dehydrogenase C-Reactive Protein 12.60 H Albumin Globulin Albumin/Globulin Ratio Meds: Medications Acetaminophen (Acetaminophen 500 Mg Tablet) 1,000 mg PO TID [facility]; Protocol Last Admin: 10/16/22 20:19 Dose: 1,000 mg Albuterol Sulfate (Albuterol Sulfate 60 Puff Inhaler) 2 puff IH Q4HP PRN PRN Reason: for dyspnea Albuterol/Ipratropium (Ipratropium/Albuterol 3 Ml Ampul.Neb) 3 ml NEB Q6HP [facility] Aspirin (Aspirin 81 Mg Tab.Chew) 81 mg CHEWED BID [facility] Last Admin: 10/16/22 20:19 Dose: 81 mg Bisacodyl (Bisacodyl 10 Mg Supp.Rect) 10 mg SC Q2-3DAYS PRN PRN Reason: Constipation Diphenhydramine HCl (Diphenhydramine 25 Mg Capsule) 25 mg PO HSP PRN PRN Reason: Insomnia Last Admin: 10/16/22 00:20 Dose: 25 mg Docusate Sodium (Docusate Sodium 100 Mg Capsule) 100 mg PO BID [facility] Last Admin: 10/16/22 20:19 Dose: 100 mg Duloxetine HCl (Duloxetine 30 Mg Capsule) 30 mg PO QDAY [facility] Last Admin: 10/16/22 08:39 Dose: 30 mg Heparin Sodium (Porcine) (Heparin Flush 10 Units/Ml 5 Ml Syringe) 2 ml IV Q12 [facility] Last Admin: 10/16/22 20:36 Dose: Not Given Hydrochlorothiazide (Hydrochlorothiazide 12.5 Mg Capsule) 12.5 mg PO DAILY [facility] Last Admin: 10/16/22 08:39 Dose: 12.5 mg Hydroxyzine HCl (Hydroxyzine 25 Mg Tablet) 50 mg PO HS [facility] Last Admin: 10/16/22 20:18 Dose: 50 mg Vancomycin HCl 1,250 mg/ (Sodium Chloride) 500 mls @ 333.3 mls/hr IV Q12H [facility] Last Infusion: 10/16/22 22:38 Dose: Infused Ceftriaxone Sodium 2 gm/ (Dextrose) 50 mls @ 100 mls/hr IV Q24H [facility] Last Infusion: 10/16/22 11:47 Dose: Infused Rifampin 600 mg/ Sodium (Chloride) 100 mls @ 100 mls/hr IV Q24H [facility]; Protocol Last Infusion: 10/16/22 18:08 Dose: Infused Lisinopril (Lisinopril 20 Mg Tablet) 20 mg PO DAILY [facility] Last Admin: 10/16/22 08:40 Dose: 20 mg Magnesium Hydroxide (Magnesium Hydroxide 30 Ml Oral.Susp) 30 ml PO BIDP PRN PRN Reason: Constipation Melatonin (Melatonin 3 Mg Tablet) 3 mg PO QPM@1900 [facility] Last Admin: 10/16/22 20:19 Dose: 3 mg Methocarbamol (Methocarbamol 750 Mg Tablet) 750 mg PO TIDP PRN PRN Reason: Muscle Spasm Last Admin: 10/16/22 20:18 Dose: 750 mg Olanzapine (Olanzapine 5 Mg Tablet) 5 mg PO TIDP PRN PRN Reason: agitation Last Admin: 10/16/22 00:20 Dose: 5 mg [facility] ([facility]) [facility] Admin: 10/16/22 07:14 Dose: 20 mg Ondansetron HCl (Ondansetron 4 Mg/2 Ml Vial) 4 mg IV Q4HP PRN; Protocol PRN Reason: Nausea And Vomiting Last Admin: 10/13/22 21:12 Dose: 4 mg Oxycodone HCl (Oxycodone Hcl 5 Mg Tablet) 10 - 20 mg PO Q6HP PRN; Protocol PRN Reason: Pain Last Admin: 10/17/22 05:47 Dose: 20 mg Polyethylene Glycol (Polyethylene Glycol 3350 17 Gm Packet) 17 gm PO DAILYP PRN PRN Reason: Constipation Senna (Sennosides 1 Tablet) 2 tab PO HS [facility] Last Admin: 10/16/22 20:18 Dose: 2 tab Sodium Biphosphate/Sodium Phosphate (Fleets Adult Enema) 1 dose SC Q3-4DAYS PRN PRN Reason: Constipation Sodium Chloride (0.9 % Sodium Chloride 10 Ml Syringe) 10 ml IV Q8 [facility] Last Admin: 10/16/22 20:19 Dose: 10 ml Sodium Chloride (0.9 % Sodium Chloride 10 Ml Syringe) 10 ml IV Q12 [facility] Last Admin: 10/16/22 20:36 Dose: Not Given Sodium Chloride (0.9 % Sodium Chloride 10 Ml Syringe) 10 ml IV UD PRN PRN Reason: FLUSH Throat Lozenges (Benzocaine/Menthol 1 Lozenge) 1 lozenge PO PRN PRN PRN Reason: Sore Throat Vancomycin HCl (Vancomycin Per Pharmacy) 1 order IV UD [facility]; Protocol A/P Narrative A/P Narrative: A: #Cardiac arrest: -Resolved (2/2 polysubstance abuse and catecholamine response post-induction) -It is unclear if there is a cardiopulmonary process. The patient did have C TA chest which was negative for PE, or aortic disease. Initial cardiac enzymes were unrevealing. TTE did not reveal any evidence of wall motion abnormalities and he has a preserved EF of 65%. Electrolytes monitored and repleted. The patient did drink heavily prior to surgery and this was likely component of withdrawal as the achieve ROSC quite quickly. It was also discovered he has been using meth prior to surgery #EtOH abuse and W/D: -Patient also endorsed meth use which contributed to his post-op cardiac arrest #Substance Abuse (Meth): #R knee infection: s/p washout (10/10) -ID consulted, cx revealed MRSA -Due to the patient's polysubstance abuse, he may not be appropriate for PICC line unless he goes to SNF. -goal is SNF with PICC #Hyponatremia: improved #HTN: #GERD: #Obesity: bmi 35, lifestyle modifications P: -ID following, cont vanco while inpt, zyvox PO (if going home instead of SNF) and to avoid etoh on abx -goal is to SNF with PICC -f/u in ID clinic -Postoperative care per orthopedic surgery. Dr. Miguel de la rosa with meals -cont home ACEI -substance use cessation counseling -PT/OT -CM for placement needs -ppx: ASA per ortho / home ppi Time Spent With Patient Time: Total time spent is greater than 50% in coordination of care (as documented) at patient's floor/unit and/or counseling patient: Subsequent: Total time with patient: 35 - 49 minutes QUALITY VTE Deep Vein Thrombosis/Pulmonary Embolism Present on Admission: No
--- NOTE | 2022-10-17 07:31 | Orthopedic Progress Note ---
SUBJECTIVE Subjective Patient information: Note initiated : 10/17/22 at 7:24 am Service Date, if different from initiated Date: [] Patient: Leonides Jenkins 52 y/o M admitted on 10/10/22 for increased knee pain. Chief Complaint: [Overall doing ok, no new complaints this AM.] Principal diagnosis: Septic Rt knee s/p irrigation & debridement Constitutional Vitals: Vital Signs Temp Pulse Resp BP Pulse Ox O2 Del Method O2 Flow Rate 98.4 F 89 18 144/84 92 Room Air 3 10/17/22 05:48 10/17/22 05:48 10/17/22 05:48 10/17/22 05:48 10/17/22 05:48 10/17/22 05:48 10/14/22 12:00 Period Temp Pulse Resp BP Sys/Ward Pulse Ox O2 Del Method O2 Flow Rate Last 24 Hr 97.7 F-98.6 F 67-91 18-24 116-151/68-85 90-93 Room Air-Room Air Intake and Output 10/16/22 10/17/22 10/17/22 19:59 03:59 11:59 Intake Total 960 500 640 Output Total 350 400 350 Balance 610 100 290 Weight 245 lb Intake & Output: Intake & Output 10/16/22 10/17/22 10/17/22 19:59 03:59 11:59 Intake Total 960 500 640 Output Total 350 400 350 Balance 610 100 290 Weight 245 lb Intake: IV 600 500 Rifampin 600 mg In Sodium 100 Chloride 0.9% 100 ml @ 100 mls/ hr IV Q24H [facility] Rx#:[id number] Vancomycin 1,250 mg In Sodium 500 500 Chloride 0.9% 500 ml @ 333.3 mls/hr IV Q12H [facility] Rx#: [id number] Oral 360 640 Output: Void Amount 350 400 350 Other: Meal Lunch Percent of Meal Consumed 75% Feeding Ability Independent Urine Appearance Clear Clear Urine Color [place] Yellow # Voids 1 Additional findings Additional findings: alert and appropriate right knee: dressing clean dry and intact. Stable effusion as expected. foot warm well perfused. OBJ DATA Labs 10/15/22 05:45 10/15/22 05:45 Labs: Abnormal Lab Results 10/16/22 10/15/22 10/15/22 06:04 05:45 05:45 WBC 12.1 H RBC 3.71 L Hgb 11.0 L Hct 34.3 L RDW 15.0 H Plt Count 511 H Immature Gran % (Auto) 1.2 H Lymph % (Auto) 11.9 L Lymph # (Auto) 1.43 L Lymphocytes % Immature Gran # 0.15 H Absolute Neutrophils 9.35 H Platelet Estimate RBC Morphology Anisocytosis BUN 23 H Glucose 113 H Lactate Dehydrogenase 266 H C-Reactive Protein 18.20 H Albumin 2.9 L Globulin 3.9 H Albumin/Globulin Ratio 0.7 L 10/15/22 10/14/22 05:30 08:43 WBC RBC Hgb Hct RDW Plt Count Immature Gran % (Auto) Lymph % (Auto) Lymph # (Auto) Lymphocytes % 11 L Immature Gran # Absolute Neutrophils Platelet Estimate Decreased A RBC Morphology Abnormal A Anisocytosis 1+ A BUN Glucose Lactate Dehydrogenase C-Reactive Protein 12.60 H Albumin Globulin Albumin/Globulin Ratio Meds: Medications Acetaminophen (Acetaminophen 500 Mg Tablet) 1,000 mg PO TID [facility]; Protocol Last Admin: 10/16/22 20:19 Dose: 1,000 mg Albuterol Sulfate (Albuterol Sulfate 60 Puff Inhaler) 2 puff IH Q4HP PRN PRN Reason: for dyspnea Albuterol/Ipratropium (Ipratropium/Albuterol 3 Ml Ampul.Neb) 3 ml NEB Q6HP [facility] Aspirin (Aspirin 81 Mg Tab.Chew) 81 mg CHEWED BID [facility] Last Admin: 10/16/22 20:19 Dose: 81 mg Bisacodyl (Bisacodyl 10 Mg Supp.Rect) 10 mg CO Q2-3DAYS PRN PRN Reason: Constipation Diphenhydramine HCl (Diphenhydramine 25 Mg Capsule) 25 mg PO HSP PRN PRN Reason: Insomnia Last Admin: 10/16/22 00:20 Dose: 25 mg Docusate Sodium (Docusate Sodium 100 Mg Capsule) 100 mg PO BID [facility] Last Admin: 10/16/22 20:19 Dose: 100 mg Duloxetine HCl (Duloxetine 30 Mg Capsule) 30 mg PO QDAY [facility] Last Admin: 10/16/22 08:39 Dose: 30 mg Heparin Sodium (Porcine) (Heparin Flush 10 Units/Ml 5 Ml Syringe) 2 ml IV Q12 [facility] Last Admin: 10/16/22 20:36 Dose: Not Given Hydrochlorothiazide (Hydrochlorothiazide 12.5 Mg Capsule) 12.5 mg PO DAILY [facility] Last Admin: 10/16/22 08:39 Dose: 12.5 mg Hydroxyzine HCl (Hydroxyzine 25 Mg Tablet) 50 mg PO [facility] Last Admin: 10/16/22 20:18 Dose: 50 mg Vancomycin HCl 1,250 mg/ (Sodium Chloride) 500 mls @ 333.3 mls/hr IV Q12H [facility] Last Infusion: 10/16/22 22:38 Dose: Infused Ceftriaxone Sodium 2 gm/ (Dextrose) 50 mls @ 100 mls/hr IV Q24H [facility] Last Infusion: 10/16/22 11:47 Dose: Infused Rifampin 600 mg/ Sodium (Chloride) 100 mls @ 100 mls/hr IV Q24H [facility]; Protocol Last Infusion: 10/16/22 18:08 Dose: Infused Lisinopril (Lisinopril 20 Mg Tablet) 20 mg PO DAILY [facility] Last Admin: 10/16/22 08:40 Dose: 20 mg Magnesium Hydroxide (Magnesium Hydroxide 30 Ml Oral.Susp) 30 ml PO BIDP PRN PRN Reason: Constipation Melatonin (Melatonin 3 Mg Tablet) 3 mg PO QPM@1900 [facility] Last Admin: 10/16/22 20:19 Dose: 3 mg Methocarbamol (Methocarbamol 750 Mg Tablet) 750 mg PO TIDP PRN PRN Reason: Muscle Spasm Last Admin: 10/16/22 20:18 Dose: 750 mg Olanzapine (Olanzapine 5 Mg Tablet) 5 mg PO TIDP PRN PRN Reason: agitation Last Admin: 10/16/22 00:20 Dose: 5 mg Omeprazole (Omeprazole 20 Mg Capsule) 20 mg PO [facility] Last Admin: 10/16/22 07:14 Dose: 20 mg Ondansetron HCl (Ondansetron 4 Mg/2 Ml Vial) 4 mg IV Q4HP PRN; Protocol PRN Reason: Nausea And Vomiting Last Admin: 10/13/22 21:12 Dose: 4 mg Oxycodone HCl (Oxycodone Hcl 5 Mg Tablet) 10 - 20 mg PO Q6HP PRN; Protocol PRN Reason: Pain Last Admin: 10/17/22 05:47 Dose: 20 mg Polyethylene Glycol (Polyethylene Glycol 3350 17 Gm Packet) 17 gm PO DAILYP PRN PRN Reason: Constipation Senna (Sennosides 1 Tablet) 2 tab PO [facility] Last Admin: 10/16/22 20:18 Dose: 2 tab Sodium Biphosphate/Sodium Phosphate (Fleets Adult Enema) 1 dose CO Q3-4DAYS PRN PRN Reason: Constipation Sodium Chloride (0.9 % Sodium Chloride 10 Ml Syringe) 10 ml IV Q8 [facility] Last Admin: 10/16/22 20:19 Dose: 10 ml Sodium Chloride (0.9 % Sodium Chloride 10 Ml Syringe) 10 ml IV Q12 [facility] Last Admin: 10/16/22 20:36 Dose: Not Given Sodium Chloride (0.9 % Sodium Chloride 10 Ml Syringe) 10 ml IV UD PRN PRN Reason: FLUSH Throat Lozenges (Benzocaine/Menthol 1 Lozenge) 1 lozenge PO PRN PRN PRN Reason: Sore Throat Vancomycin HCl (Vancomycin Per Pharmacy) 1 order IV UD [facility]; Protocol A/P Assessment and plan (1) Infection of prosthetic right knee joint: Status: Acute (2) Postoperative infection of knee: Assessment and plan: POD7 s/p I&D total knee arthroplasty infection, poly exchange, antibiotic bead placement -- 50% weight bearing, hinged knee brace with ambulation -- blood culture negative, staph aureus with sensitivity with positive for MRSA --------PICC line ordered and will only be completed once decided on SNF with disposition: however if IV access continues to be a problem would have it placed despite disposition as long as he is here. Vanc trough is low at around 12 and discussed with pharmacy yesterday evening. Goal is 15-20. CRP increased with decrease in vanc trough. Trough ordered today prior to AM dose of vancomycin. Continue vancomycin/rifampin. ID consult completed -- CIWI d/c. Did well yesterday, discussed that he will have soreness/pain as all the medication is leaving the system including drugs. The chest pain is from CPR. will add robaxin to medication -- ok to shower, will see policy regarding having mother stay with him overnight -- dispo: will need SNF for IV abx- ID recommends 4 weeks IV however, typically is 6 weeks which I will plan for. Pending a place pending on how he does here over a couple of days. Status: Acute Time Spent With Patient Time: Total time spent is greater than 50% in coordination of care (as documented) at patient's floor/unit and/or counseling patient:
[2022-10-17] MEDS: DOCUSATE SODIUM 100 MG CAPSULE PO SCH ×2 (08:58→20:01)
[2022-10-17] MEDS: OMEPRAZOLE 20 MG CAPSULE PO SCH (08:58)
[2022-10-17] MEDS: LISINOPRIL 20 MG TABLET PO SCH (08:59)
[2022-10-17] MEDS: ASPIRIN 81 MG TAB.CHEW CHEWED SCH ×2 (08:59→21:16)
[2022-10-17] MEDS: ACETAMINOPHEN 500 MG TABLET PO SCH ×3 (08:59→20:00)
[2022-10-17] MEDS: 0.9 % SODIUM CHLORIDE 10 ML SYRINGE IV SCH ×6 (08:59→21:16)
[2022-10-17] MEDS: HYDROCHLOROTHIAZIDE 12.5 MG CAPSULE PO SCH (08:59)
[2022-10-17] MEDS ORDERED: VANCOMYCIN 1,500 MG in 0.9 % SODIUM CHLORIDE 500 ML IV SCH (09:00)
[2022-10-17] MEDS: DULoxetine 30 MG CAPSULE PO SCH (09:00)
[2022-10-17] MEDS: cefTRIAXone 2 GM in DEXTROSE 5% IN WATER 50 ML IV SCH (10:39)
[2022-10-17] MEDS: RIFAMPIN 600 MG in 0.9 % SODIUM CHLORIDE 100 ML IV SCH (12:30)
[2022-10-17] MEDS: METHOCARBAMOL 750 MG TABLET PO PRN ×2 (15:38→19:55)
[2022-10-17] MEDS: hydrOXYzine 25 MG TABLET PO SCH (20:00)
[2022-10-17] MEDS: MELATONIN 3 MG TABLET PO SCH (20:00)
[2022-10-17] MEDS: SENNOSIDES 1 TABLET PO SCH (20:00)
[2022-10-17] MEDS: VANCOMYCIN 1,500 MG in 0.9 % SODIUM CHLORIDE 500 ML IV SCH (21:17)
[2022-10-18] MEDS: METHOCARBAMOL 750 MG TABLET PO PRN ×3 (03:03→19:02)
[2022-10-18] MEDS: OLANZapine 5 MG TABLET PO PRN (03:05)
[2022-10-18] MEDS: oxyCODONE IR 5 MG TABLET PO PRN ×4 (05:14→23:57)
--- NOTE | 2022-10-18 06:58 | Orthopedic Progress Note ---
SUBJECTIVE Subjective Patient information: Note initiated : 10/18/22 at 6:53 am Service Date, if different from initiated Date: [] Patient: Leonides Jenkins 52 y/o M admitted on 10/10/22 for increased knee pain. Chief Complaint: [No acute issues overnight. ] Principal diagnosis: Septic Rt knee s/p irrigation & debridement Constitutional Vitals: Vital Signs Temp Pulse Resp BP Pulse Ox O2 Del Method O2 Flow Rate 97.2 F 65 16 126/77 95 Room Air 3 10/18/22 03:08 10/18/22 03:08 10/18/22 03:08 10/18/22 03:08 10/18/22 03:08 10/18/22 03:08 10/14/22 12:00 Period Temp Pulse Resp BP Sys/Ward Pulse Ox O2 Del Method O2 Flow Rate Last 24 Hr 97.1 F-98.9 F 65-99 16-18 120-156/73-95 91-95 Room Air-Room Air Intake and Output 10/17/22 10/18/22 10/18/22 19:59 03:59 11:59 Intake Total 600 940 Output Total 400 850 Balance 200 90 Weight 246 lb 11.2 oz Intake & Output: Intake & Output 10/17/22 10/18/22 10/18/22 19:59 03:59 11:59 Intake Total 600 940 Output Total 400 850 Balance 200 90 Weight 246 lb 11.2 oz Intake: IV 600 500 Rifampin 600 mg In Sodium 100 Chloride 0.9% 100 ml @ 100 mls/ hr IV Q24H [facility] Rx#:[id number] Vancomycin 1,500 mg In Sodium 500 500 Chloride 0.9% 500 ml @ 333.3 mls/hr IV Q12H [facility] Rx#: [id number] Oral 440 Output: Void Amount 400 850 Other: Meal Breakfast Percent of Meal Consumed 75% Urine Appearance Clear Urine Color Yellow Additional findings Additional findings: alert oriented and appropriate right knee: dressing clean dry intact OBJ DATA Labs 10/15/22 05:45 10/15/22 05:45 Labs: Abnormal Lab Results 10/16/22 10/15/22 10/15/22 06:04 05:45 05:30 Lymphocytes % 11 L Platelet Estimate Decreased A RBC Morphology Abnormal A Anisocytosis 1+ A BUN 23 H Glucose 113 H Lactate Dehydrogenase 266 H C-Reactive Protein 18.20 H Albumin 2.9 L Globulin 3.9 H Albumin/Globulin Ratio 0.7 L Meds: Medications Acetaminophen (Acetaminophen 500 Mg Tablet) 1,000 mg PO TID [facility]; Protocol Last Admin: 10/17/22 20:00 Dose: 1,000 mg Albuterol Sulfate (Albuterol Sulfate 60 Puff Inhaler) 2 puff IH Q4HP PRN PRN Reason: for dyspnea Albuterol/Ipratropium (Ipratropium/Albuterol 3 Ml Ampul.Neb) 3 ml NEB Q6HP [facility] Aspirin (Aspirin 81 Mg Tab.Chew) 81 mg CHEWED BID [facility] Last Admin: 10/17/22 21:16 Dose: 81 mg Bisacodyl (Bisacodyl 10 Mg Supp.Rect) 10 mg [place] Q2-3DAYS PRN PRN Reason: Constipation Diphenhydramine HCl (Diphenhydramine 25 Mg Capsule) 25 mg PO HSP PRN PRN Reason: Insomnia Last Admin: 10/16/22 00:20 Dose: 25 mg Docusate Sodium (Docusate Sodium 100 Mg Capsule) 100 mg PO BID [facility] Last Admin: 10/17/22 20:01 Dose: 100 mg Duloxetine HCl (Duloxetine 30 Mg Capsule) 30 mg PO QDAY [facility] Last Admin: 10/17/22 09:00 Dose: 30 mg Heparin Sodium (Porcine) (Heparin Flush 10 Units/Ml 5 Ml Syringe) 2 ml IV Q12 [facility] Last Admin: 10/17/22 20:01 Dose: Not Given Hydrochlorothiazide (Hydrochlorothiazide 12.5 Mg Capsule) 12.5 mg PO DAILY [facility] Last Admin: 10/17/22 08:59 Dose: 12.5 mg Hydroxyzine HCl (Hydroxyzine 25 Mg Tablet) 50 mg PO HS [facility] Last Admin: 10/17/22 20:00 Dose: 50 mg Rifampin 600 mg/ Sodium (Chloride) 100 mls @ 100 mls/hr IV Q24H [facility]; Protocol Last Infusion: 10/17/22 13:30 Dose: Infused Vancomycin HCl 1,500 mg/ (Sodium Chloride) 500 mls @ 333.3 mls/hr IV Q12H [facility] Last Infusion: 10/17/22 22:49 Dose: Infused Lisinopril (Lisinopril 20 Mg Tablet) 20 mg PO DAILY [facility] Last Admin: 10/17/22 08:59 Dose: 20 mg Magnesium Hydroxide (Magnesium Hydroxide 30 Ml Oral.Susp) 30 ml PO BIDP PRN PRN Reason: Constipation Melatonin (Melatonin 3 Mg Tablet) 3 mg PO QPM@1900 [facility] Last Admin: 10/17/22 20:00 Dose: 3 mg Methocarbamol (Methocarbamol 750 Mg Tablet) 750 mg PO TIDP PRN PRN Reason: Muscle Spasm Last Admin: 10/18/22 03:03 Dose: 750 mg Olanzapine (Olanzapine 5 Mg Tablet) 5 mg PO TIDP PRN PRN Reason: agitation Last Admin: 10/18/22 03:05 Dose: 5 mg Omeprazole (Omeprazole 20 Mg Capsule) 20 mg PO QAMAC [facility] Last Admin: 10/17/22 08:58 Dose: 20 mg Ondansetron HCl (Ondansetron 4 Mg/2 Ml Vial) 4 mg IV Q4HP PRN; Protocol PRN Reason: Nausea And Vomiting Last Admin: 10/13/22 21:12 Dose: 4 mg Oxycodone HCl (Oxycodone Hcl 5 Mg Tablet) 10 - 20 mg PO Q6HP PRN; Protocol PRN Reason: Pain Last Admin: 10/18/22 05:14 Dose: 20 mg Polyethylene Glycol (Polyethylene Glycol 3350 17 Gm Packet) 17 gm PO DAILYP PRN PRN Reason: Constipation Senna (Sennosides 1 Tablet) 2 tab PO HS [facility] Last Admin: 10/17/22 20:00 Dose: 2 tab Sodium Biphosphate/Sodium Phosphate (Fleets Adult Enema) 1 dose [place] Q3-4DAYS PRN PRN Reason: Constipation Sodium Chloride (0.9 % Sodium Chloride 10 Ml Syringe) 10 ml IV Q8 [facility] Last Admin: 10/17/22 20:01 Dose: 10 ml Sodium Chloride (0.9 % Sodium Chloride 10 Ml Syringe) 10 ml IV Q12 [facility] Last Admin: 10/17/22 21:16 Dose: 10 ml Sodium Chloride (0.9 % Sodium Chloride 10 Ml Syringe) 10 ml IV UD PRN PRN Reason: FLUSH Throat Lozenges (Benzocaine/Menthol 1 Lozenge) 1 lozenge PO PRN PRN PRN Reason: Sore Throat Vancomycin HCl (Vancomycin Per Pharmacy) 1 order IV UD [facility]; Protocol A/P Assessment and plan (1) Infection of prosthetic right knee joint: Status: Acute (2) Postoperative infection of knee: Assessment and plan: POD8 s/p I&D total knee arthroplasty infection, poly exchange, antibiotic bead placement -- 50% weight bearing, hinged knee brace with ambulation -- blood culture negative, staph aureus with sensitivity with positive for MRSA --------IV access is an issue. Recommend midline or PICC line. If patient ends of d/c home then can d/c prior to d/c. However, IV access is a priority from my standpoint. --------Vancomycin increased to 1500mg as trough was sub-therapeutic at just over 9. Goal is 15-20. Continue rifampin -- Off CIWI for past 4 1/2 days. D/c etoh with meals yesterday. Patient states that he does not need etoh -- Pain improving and ok control with oral meds -- ok to shower, will see policy regarding having mother stay with him overnight -- dispo: will need SNF for IV abx- ID recommends 4 weeks IV however, typically is 6 weeks which I will plan for. Pending a place pending on how he does here over a couple of days, only 1 place as of now that will consider accepting him if meets criteria- off CIWI and etoh without risk for DT's. Howver, have to get to a therapeutic vanc level. Discussed with pharmacy and may need to transition to q8 hr dosing. Status: Acute Time Spent With Patient Time: Total time spent is greater than 50% in coordination of care (as documented) at patient's floor/unit and/or counseling patient:
--- NOTE | 2022-10-18 07:41 | Internal Med Progress Note ---
SUBJECTIVE Subjective Patient information: Note initiated : 10/18/22 at 7:40 am Service Date, if different from initiated Date: [] Patient: Leonides Jenkins 52 y/o M admitted on 10/10/22 for increased knee pain. Chief Complaint: [] Principal diagnosis: Septic Rt knee s/p irrigation & debridement Interval history: Chief Complaint: [Cardiac arrest] 52-year-old obese male with a past medical history significant for hypertension, anxiety/depression, and alcohol abuse who presented to the hospital for elective surgery. The patient underwent right total knee arthroplasty, irrigation, and debridement with polyliner exchange and antibiotic bead placement. Postoperatively, after anesthesia induction, he briefly went into PEA arrest requiring cardiopulmonary resuscitation with ROSC. He was extubated overnight and this morning he was alert, oriented x3. Family were present at the bedside. The patient denies chest pain, shortness of breath or palpitations. There were concerns for mild alcohol withdrawal as he was placed on CIWA protocol and did receive Ativan. The hospitalist service was asked to consult to help medically manage the patient. 10/13: The patient was moved out the ICU to [facility]. He remains quite somnolent as he needs IV Ativan for CIWA protocol. He is receiving beer as well. 10/14: Had a lengthy discussion with RN, and with catalytic case operator regarding the patient's behavior. He did sign the AMA form however was quite confused. He was verbally abusive, shouting and yelling yesterday. The patient receives oxycodone, alcohol, and benzodiazepine subsequently by staffing and then becomes quite sedated and somnolent. This morning he was difficult to wake up. I recommended stopping or decreasing IV Ativan. 10/15 Patient states poor sleep but otherwise no new complaints other than headache. Leukocytosis mildly improved today. Anemia stable. Hyponatremia improved. 10/16 Patient complains of poor sleep. Complains of headaches and had some nausea this morning. Continue wound care and placement options. Continue IV antibiotics 10/17 Patient slept great last night he says. Patient cooperative with cares. No acute events overnight 10/[address] unless he is off alcohol. Started holding alcohol yesterday and will monitor him closely if he does not have any symptoms of withdrawal and then plan is to keep him off alcohol so he can go to a rehab with PICC line. Patient seems to be in better spirits today. No overnight event or new complaints other than he had a poor sleepAnd complains of headache at times. Review of Systems: denies headache/fever/chills/nausea/vomiting/chest or abdominal pain/cough/dyspnea/diarrhea. Otherwise see above. PHYSICAL EXAM General: Alert, Awake, No acute Distress, obese Eyes/N/T: EOMI, no scleral icterus, Head/Neck: neck supple, full ROM, CV: RRR, 2/6SM, Pulm: Clear b/l, no wheezing/rhonchi/rales, no respiratory distress Abd: soft, nontender, +BS x4 Ext: no clubbing/cyanosis/edema, right knee dressings Neuro: Alert, no focal deficits, moves all extremities,, sensations intact b/l upper/lower Psychiatric: Agitated and anxious Skin: warm/dry, normal color Constitutional Vitals: Vital Signs Temp Pulse Resp BP Pulse Ox O2 Del Method O2 Flow Rate 97.2 F 65 16 126/77 95 Room Air 3 10/18/22 03:08 10/18/22 03:08 10/18/22 03:08 10/18/22 03:08 10/18/22 03:08 10/18/22 03:08 10/14/22 12:00 Period Temp Pulse Resp BP Sys/Ward Pulse Ox O2 Del Method O2 Flow Rate Last 24 Hr 97.1 F-98.9 F 65-99 16-18 120-156/73-95 91-95 Room Air-Room Air Intake and Output 10/17/22 10/18/22 10/18/22 19:59 03:59 11:59 Intake Total 600 940 Output Total 400 850 Balance 200 90 Weight 111.901 kg Intake & Output: Intake & Output 10/17/22 10/18/22 10/18/22 19:59 03:59 11:59 Intake Total 600 940 Output Total 400 850 Balance 200 90 Weight 111.901 kg Intake: IV 600 500 Rifampin 600 mg In Sodium 100 Chloride 0.9% 100 ml @ 100 mls/ hr IV Q24H [facility] Rx#:[id number] Vancomycin 1,500 mg In Sodium 500 500 Chloride 0.9% 500 ml @ 333.3 mls/hr IV Q12H [facility] Rx#: [id number] Oral 440 Output: Void Amount 400 850 Other: Meal Breakfast Percent of Meal Consumed 75% Urine Appearance Clear Urine Color Yellow OBJ DATA Labs 10/15/22 05:45 10/15/22 05:45 Labs: Abnormal Lab Results 10/16/22 10/15/22 06:04 05:30 Lymphocytes % 11 L Platelet Estimate Decreased A RBC Morphology Abnormal A Anisocytosis 1+ A C-Reactive Protein 18.20 H Meds: Medications Acetaminophen (Acetaminophen 500 Mg Tablet) 1,000 mg PO TID [facility]; Protocol Last Admin: 10/17/22 20:00 Dose: 1,000 mg Albuterol Sulfate (Albuterol Sulfate 60 Puff Inhaler) 2 puff IH Q4HP PRN PRN Reason: for dyspnea Albuterol/Ipratropium (Ipratropium/Albuterol 3 Ml Ampul.Neb) 3 ml NEB Q6HP [facility] Aspirin (Aspirin 81 Mg Tab.Chew) 81 mg CHEWED BID [facility] Last Admin: 10/17/22 21:16 Dose: 81 mg Bisacodyl (Bisacodyl 10 Mg Supp.Rect) 10 mg [place] Q2-3DAYS PRN PRN Reason: Constipation Diphenhydramine HCl (Diphenhydramine 25 Mg Capsule) 25 mg PO HSP PRN PRN Reason: Insomnia Last Admin: 10/16/22 00:20 Dose: 25 mg Docusate Sodium (Docusate Sodium 100 Mg Capsule) 100 mg PO BID [facility] Last Admin: 10/17/22 20:01 Dose: 100 mg Duloxetine HCl (Duloxetine 30 Mg Capsule) 30 mg PO QDAY [facility] Last Admin: 10/17/22 09:00 Dose: 30 mg Heparin Sodium (Porcine) (Heparin Flush 10 Units/Ml 5 Ml Syringe) 2 ml IV Q12 [facility] Last Admin: 10/17/22 20:01 Dose: Not Given Hydrochlorothiazide (Hydrochlorothiazide 12.5 Mg Capsule) 12.5 mg PO DAILY [facility] Last Admin: 10/17/22 08:59 Dose: 12.5 mg Hydroxyzine HCl (Hydroxyzine 25 Mg Tablet) 50 mg PO HS [facility] Last Admin: 10/17/22 20:00 Dose: 50 mg Rifampin 600 mg/ Sodium (Chloride) 100 mls @ 100 mls/hr IV Q24H [facility]; Protocol Last Infusion: 10/17/22 13:30 Dose: Infused Vancomycin HCl 1,500 mg/ (Sodium Chloride) 500 mls @ 333.3 mls/hr IV Q12H [facility] Last Infusion: 10/17/22 22:49 Dose: Infused Lisinopril (Lisinopril 20 Mg Tablet) 20 mg PO DAILY [facility] Last Admin: 10/17/22 08:59 Dose: 20 mg Magnesium Hydroxide (Magnesium Hydroxide 30 Ml Oral.Susp) 30 ml PO BIDP PRN PRN Reason: Constipation Melatonin (Melatonin 3 Mg Tablet) 3 mg PO QPM@1900 [facility] Last Admin: 10/17/22 20:00 Dose: 3 mg Methocarbamol (Methocarbamol 750 Mg Tablet) 750 mg PO TIDP PRN PRN Reason: Muscle Spasm Last Admin: 10/18/22 03:03 Dose: 750 mg Olanzapine (Olanzapine 5 Mg Tablet) 5 mg PO TIDP PRN PRN Reason: agitation Last Admin: 10/18/22 03:05 Dose: 5 mg Omeprazole (Omeprazole 20 Mg Capsule) 20 mg PO QAMAC [facility] Last Admin: 10/17/22 08:58 Dose: 20 mg Ondansetron HCl (Ondansetron 4 Mg/2 Ml Vial) 4 mg IV Q4HP PRN; Protocol PRN Reason: Nausea And Vomiting Last Admin: 10/13/22 21:12 Dose: 4 mg Oxycodone HCl (Oxycodone Hcl 5 Mg Tablet) 10 - 20 mg PO Q6HP PRN; Protocol PRN Reason: Pain Last Admin: 10/18/22 05:14 Dose: 20 mg Polyethylene Glycol (Polyethylene Glycol 3350 17 Gm Packet) 17 gm PO DAILYP PRN PRN Reason: Constipation Senna (Sennosides 1 Tablet) 2 tab PO HS [facility] Last Admin: 10/17/22 20:00 Dose: 2 tab Sodium Biphosphate/Sodium Phosphate (Fleets Adult Enema) 1 dose [place] Q3-4DAYS PRN PRN Reason: Constipation Sodium Chloride (0.9 % Sodium Chloride 10 Ml Syringe) 10 ml IV Q8 [facility] Last Admin: 10/17/22 20:01 Dose: 10 ml Sodium Chloride (0.9 % Sodium Chloride 10 Ml Syringe) 10 ml IV Q12 [facility] Last Admin: 10/17/22 21:16 Dose: 10 ml Sodium Chloride (0.9 % Sodium Chloride 10 Ml Syringe) 10 ml IV UD PRN PRN Reason: FLUSH Throat Lozenges (Benzocaine/Menthol 1 Lozenge) 1 lozenge PO PRN PRN PRN Reason: Sore Throat Vancomycin HCl (Vancomycin Per Pharmacy) 1 order IV UD [facility]; Protocol A/P Narrative A/P Narrative: A: #Cardiac arrest: -Resolved (2/2 polysubstance abuse and catecholamine response post-induction) -It is unclear if there is a cardiopulmonary process. The patient did have CTA chest which was negative for PE, or aortic disease. Initial cardiac enzymes were unrevealing. TTE did not reveal any evidence of wall motion abnormalities and he has a preserved EF of 65%. Electrolytes monitored and repleted. The patient did drink heavily prior to surgery and this was likely component of withdrawal as the achieve ROSC quite quickly. It was also discovered he has been using meth prior to surgery #EtOH abuse and W/D: -Patient also endorsed meth use which contributed to his post-op cardiac arrest #Substance Abuse (Meth): #R knee infection: s/p washout (10/10) -ID consulted, cx revealed MRSA -Due to the patient's polysubstance abuse, he may not be appropriate for PICC line unless he goes to SNF. -goal is SNF with PICC - #Hyponatremia: improved #HTN: #GERD: #Obesity: bmi 35, lifestyle modifications P: -ID following, cont vanco while inpt, zyvox PO (if going home instead of SNF) and to avoid etoh on abx -goal is to SNF with PICC -f/u in ID clinic -Postoperative care per orthopedic surgery. Dr. Rivera -hold etoh in hopes of transitioning to SNF -cont home ACEI -substance use cessation counseling -PT/OT -CM for placement needs -ppx: ASA per ortho / home ppi Time Spent With Patient Time: Total time spent is greater than 50% in coordination of care (as documented) at patient's floor/unit and/or counseling patient: Subsequent: Total time with patient: 35 - 49 minutes QUALITY VTE Deep Vein Thrombosis/Pulmonary Embolism Present on Admission: No
[2022-10-18] MEDS: RIFAMPIN 600 MG in 0.9 % SODIUM CHLORIDE 100 ML IV SCH (08:44)
[2022-10-18] MEDS: 0.9 % SODIUM CHLORIDE 10 ML SYRINGE IV SCH ×5 (08:50→21:01)
[2022-10-18] MEDS: DOCUSATE SODIUM 100 MG CAPSULE PO SCH ×2 (08:57→21:01)
[2022-10-18] MEDS: DULoxetine 30 MG CAPSULE PO SCH (08:58)
[2022-10-18] MEDS: LISINOPRIL 20 MG TABLET PO SCH (09:02)
[2022-10-18] MEDS: HYDROCHLOROTHIAZIDE 12.5 MG CAPSULE PO SCH (09:06)
[2022-10-18] MEDS: ACETAMINOPHEN 500 MG TABLET PO SCH ×3 (09:11→20:59)
[2022-10-18] MEDS: ASPIRIN 81 MG TAB.CHEW CHEWED SCH ×2 (09:14→21:00)
[2022-10-18] MEDS: OMEPRAZOLE 20 MG CAPSULE PO SCH (11:05)
[2022-10-18] MEDS: VANCOMYCIN 1,500 MG in 0.9 % SODIUM CHLORIDE 500 ML IV SCH (11:42)
[2022-10-18] MEDS: MELATONIN 3 MG TABLET PO SCH (19:51)
[2022-10-18] MEDS: hydrOXYzine 25 MG TABLET PO SCH (21:00)
[2022-10-18] MEDS: SENNOSIDES 1 TABLET PO SCH (21:01)
[2022-10-18] MEDS: VANCOMYCIN 1,750 MG in 0.9 % SODIUM CHLORIDE 500 ML IV SCH (23:58)
[2022-10-19] MEDS: METHOCARBAMOL 750 MG TABLET PO PRN ×3 (02:24→20:19)
[2022-10-19] MEDS: oxyCODONE IR 5 MG TABLET PO PRN ×3 (06:14→20:19)
[2022-10-19] MEDS: 0.9 % SODIUM CHLORIDE 10 ML SYRINGE IV SCH ×5 (06:15→21:04)
[2022-10-19] MEDS: OMEPRAZOLE 20 MG CAPSULE PO SCH (07:44)
--- NOTE | 2022-10-19 07:51 | Internal Med Progress Note ---
SUBJECTIVE Subjective Patient information: Note initiated : 10/19/22 at 7:48 am Service Date, if different from initiated Date: [] Patient: Leonides Jenkins 52 y/o M admitted on 10/10/22 for increased knee pain. Chief Complaint: [] Principal diagnosis: Septic Rt knee s/p irrigation & debridement Interval history: Chief Complaint: [Cardiac arrest] 52-year-old obese male with a past medical history significant for hypertension, anxiety/depression, and alcohol abuse who presented to the hospital for elective surgery. The patient underwent right total knee arthroplasty, irrigation, and debridement with polyliner exchange and antibiotic bead placement. Postoperatively, after anesthesia induction, he briefly went into PEA arrest requiring cardiopulmonary resuscitation with ROSC. He was extubated overnight and this morning he was alert, oriented x3. Family were present at the bedside. The patient denies chest pain, shortness of breath or palpitations. There were concerns for mild alcohol withdrawal as he was placed on CIWA protocol and did receive Ativan. The hospitalist service was asked to consult to help medically manage the patient. 10/13: The patient was moved out the ICU to [facility]. He remains quite somnolent as he needs IV Ativan for CIWA protocol. He is receiving beer as well. 10/14: Had a lengthy discussion with RN, and with pillowcase cutter regarding the patient's behavior. He did sign the AMA form however was quite confused. He was verbally abusive, shouting and yelling yesterday. The patient receives oxycodone, alcohol, and benzodiazepine subsequently by staffing and then becomes quite sedated and somnolent. This morning he was difficult to wake up. I recommended stopping or decreasing IV Ativan. 10/15 Patient states poor sleep but otherwise no new complaints other than headache. Leukocytosis mildly improved today. Anemia stable. Hyponatremia improved. 10/16 Patient complains of poor sleep. Complains of headaches and had some nausea this morning. Continue wound care and placement options. Continue IV antibiotics 10/17 Patient slept great last night he says. Patient cooperative with cares. No acute events overnight 10/[address] unless he is off alcohol. Started holding alcohol yesterday and will monitor him closely if he does not have any symptoms of withdrawal and then plan is to keep him off alcohol so he can go to a rehab with PICC line. Patient seems to be in better spirits today. No overnight event or new complaints other than he had a poor sleepAnd complains of headache at times. Multiple discussions between surgeon in fact infectious disease regarding plan. Ideally we would be IV vancomycin at nursing facility for the duration of the treatment. If the facility cannot take the patient for the entire course which could consider dalbavancin for the remainder of the treatment. As far as oral Zyvox this will could be a consideration after at least 3 to 4 weeks of IV antibiotics. 10/19 Patient seems to be feeling well today. No overnight event or new complaints. Patient cooperative. No issues with withdrawal at this time. Monitoring closely. Review of Systems: denies headache/fever/chills/nausea/vomiting/chest or abdominal pain/cough/dyspnea/diarrhea. Otherwise see above. PHYSICAL EXAM General: Alert, Awake, No acute Distress, obese Eyes/N/T: EOMI, no scleral icterus, Head/Neck: neck supple, full ROM, CV: RRR, 2/6SM, Pulm: Clear b/l, no wheezing/rhonchi/rales, no respiratory distress Abd: soft, nontender, +BS x4 Ext: no clubbing/cyanosis/edema, right knee dressings Neuro: Alert, no focal deficits, moves all extremities,, sensations intact b/l upper/lower Psychiatric: Agitated and anxious Skin: warm/dry, normal color Constitutional Vitals: Vital Signs Temp Pulse Resp BP Pulse Ox O2 Del Method O2 Flow Rate 98.6 F 80 20 145/90 93 Room Air 3 10/19/22 03:35 10/19/22 03:35 10/19/22 03:35 10/19/22 03:35 10/19/22 03:35 10/19/22 03:35 10/14/22 12:00 Period Temp Pulse Resp BP Sys/Ward Pulse Ox O2 Del Method O2 Flow Rate Last 24 Hr 97.4 F-99.3 F 73-88 16-20 139-154/71-94 93-96 Room Air-Room Air Intake and Output 10/18/22 10/19/22 10/19/22 19:59 03:59 11:59 Intake Total 2740 825 Output Total 400 725 Balance 2340 100 Weight 105.868 kg Intake & Output: Intake & Output 10/18/22 10/19/22 10/19/22 19:59 03:59 11:59 Intake Total 2740 825 Output Total 400 725 Balance 2340 100 Weight 105.868 kg Intake: IV 500 500 Vancomycin 1,750 mg In Sodium 500 500 Chloride 0.9% 500 ml @ 250 mls/ hr IV Q12H [facility] Rx#:[id number] Oral 440 325 IV - Manual Only 1800 Output: Void Amount 400 725 Other: Urine Appearance Clear Clear Urine Color Yellow Yellow Stool Size Moderate Stool Color Brown Stool Consistency Soft # Voids 1 1 OBJ DATA Labs 10/15/22 05:45 10/15/22 05:45 Labs: Abnormal Lab Results 10/18/22 08:22 C-Reactive Protein 14.30 H Meds: Medications Acetaminophen (Acetaminophen 500 Mg Tablet) 1,000 mg PO TID [facility]; Protocol Last Admin: 10/18/22 20:59 Dose: 1,000 mg Albuterol Sulfate (Albuterol Sulfate 60 Puff Inhaler) 2 puff IH Q4HP PRN PRN Reason: for dyspnea Albuterol/Ipratropium (Ipratropium/Albuterol 3 Ml Ampul.Neb) 3 ml NEB Q6HP [facility] Aspirin (Aspirin 81 Mg Tab.Chew) 81 mg CHEWED BID [facility] Last Admin: 10/18/22 21:00 Dose: 81 mg Bisacodyl (Bisacodyl 10 Mg Supp.Rect) 10 mg MI Q2-3DAYS PRN PRN Reason: Constipation Diphenhydramine HCl (Diphenhydramine 25 Mg Capsule) 25 mg PO HSP PRN PRN Reason: Insomnia Last Admin: 10/16/22 00:20 Dose: 25 mg Docusate Sodium (Docusate Sodium 100 Mg Capsule) 100 mg PO BID [facility] Last Admin: 10/18/22 21:01 Dose: Not Given Duloxetine HCl (Duloxetine 30 Mg Capsule) 30 mg PO QDAY [facility] Last Admin: 10/18/22 08:58 Dose: 30 mg Heparin Sodium (Porcine) (Heparin Flush 10 Units/Ml 5 Ml Syringe) 2 ml IV Q12 [facility] Last Admin: 10/18/22 21:00 Dose: Not Given Hydrochlorothiazide (Hydrochlorothiazide 12.5 Mg Capsule) 12.5 mg PO DAILY [facility] Last Admin: 10/18/22 09:06 Dose: 12.5 mg Hydroxyzine HCl (Hydroxyzine 25 Mg Tablet) 50 mg PO [facility] Last Admin: 10/18/22 21:00 Dose: 50 mg Rifampin 600 mg/ Sodium (Chloride) 100 mls @ 100 mls/hr IV Q24H [facility]; Protocol Last Infusion: 10/18/22 09:44 Dose: Infused Vancomycin HCl 1,750 mg/ (Sodium Chloride) 500 mls @ 250 mls/hr IV Q12H [facility] Last Infusion: 10/19/22 02:25 Dose: Infused Lisinopril (Lisinopril 20 Mg Tablet) 20 mg PO DAILY [facility] Last Admin: 10/18/22 09:02 Dose: 20 mg Magnesium Hydroxide (Magnesium Hydroxide 30 Ml Oral.Susp) 30 ml PO BIDP PRN PRN Reason: Constipation Melatonin (Melatonin 3 Mg Tablet) 3 mg PO QPM@1900 [facility] Last Admin: 10/18/22 19:51 Dose: 3 mg Methocarbamol (Methocarbamol 750 Mg Tablet) 750 mg PO TIDP PRN PRN Reason: Muscle Spasm Last Admin: 10/19/22 02:24 Dose: 750 mg Olanzapine (Olanzapine 5 Mg Tablet) 5 mg PO TIDP PRN PRN Reason: agitation Last Admin: 10/18/22 03:05 Dose: 5 mg [facility]epraz[facility] ([facility] 20 [facility]) [facility] Admin: 10/19/22 07:44 Dose: 20 mg Ondansetron HCl (Ondansetron 4 Mg/2 Ml Vial) 4 mg IV Q4HP PRN; Protocol PRN Reason: Nausea And Vomiting Last Admin: 10/13/22 21:12 Dose: 4 mg Oxycodone HCl (Oxycodone Hcl 5 Mg Tablet) 10 - 20 mg PO Q6HP PRN; Protocol PRN Reason: Pain Last Admin: 10/19/22 06:14 Dose: 10 mg Polyethylene Glycol (Polyethylene Glycol 3350 17 Gm Packet) 17 gm PO DAILYP PRN PRN Reason: Constipation Senna (Sennosides 1 Tablet) 2 tab PO [facility] Last Admin: 10/18/22 21:01 Dose: Not Given Sodium Biphosphate/Sodium Phosphate (Fleets Adult Enema) 1 dose MI Q3-4DAYS PRN PRN Reason: Constipation Sodium Chloride (0.9 % Sodium Chloride 10 Ml Syringe) 10 ml IV Q8 [facility] Last Admin: 10/19/22 06:15 Dose: 10 ml Sodium Chloride (0.9 % Sodium Chloride 10 Ml Syringe) 10 ml IV Q12 [facility] Last Admin: 10/18/22 21:01 Dose: Not Given Sodium Chloride (0.9 % Sodium Chloride 10 Ml Syringe) 10 ml IV UD PRN PRN Reason: FLUSH Throat Lozenges (Benzocaine/Menthol 1 Lozenge) 1 lozenge PO PRN PRN PRN Reason: Sore Throat Vancomycin HCl (Vancomycin Per Pharmacy) 1 order IV UD [facility]; Protocol A/P Narrative A/P Narrative: A: #Cardiac arrest: -Resolved (2/2 polysubstance abuse and catecholamine response post-induction) -It is unclear if there is a cardiopulmonary process. The patient did have CTA chest which was negative for PE, or aortic disease. Initial cardiac enzymes were unrevealing. TTE did not reveal any evidence of wall motion abnormalities and he has a preserved EF of 65%. Electrolytes monitored and repleted. The patient did drink heavily prior to surgery and this was likely component of withdrawal as the achieve ROSC quite quickly. It was also discovered he has been using meth prior to surgery #EtOH abuse and W/D: -Patient also endorsed meth use which contributed to his post-op cardiac arr est #Substance Abuse (Meth): #R knee infection: s/p washout (10/10) -ID consulted, cx revealed MRSA -Due to the patient's polysubstance abuse, he may not be appropriate for PICC line unless he goes to SNF. -goal is SNF with PICC - #Hyponatremia: improved #HTN: #GERD: #Obesity: bmi 35, lifestyle modifications P: -ID following, cont IV Vanco, Dalbavancin as potential tx, zyvox PO after at least 3 weeks of IV abx -goal is to SNF with PICC -f/u in ID clinic -Postoperative care per orthopedic surgery. Dr. Rivera -discussions with ID and Surgeon regarding abx plan -hold etoh in hopes of transitioning to SNF, monitor for w/d -cont home ACEI -substance use cessation counseling -PT/OT -CM for placement needs -ppx: ASA per ortho / home ppi Time Spent With Patient Time: Total time spent is greater than 50% in coordination of care (as documented) at patient's floor/unit and/or counseling patient: Subsequent: Total time with patient: 35 - 49 minutes QUALITY VTE Deep Vein Thrombosis/Pulmonary Embolism Present on Admission: No
[2022-10-19] MEDS: ASPIRIN 81 MG TAB.CHEW CHEWED SCH ×2 (08:42→21:03)
[2022-10-19] MEDS: DOCUSATE SODIUM 100 MG CAPSULE PO SCH ×2 (08:43→21:02)
[2022-10-19] MEDS: HYDROCHLOROTHIAZIDE 12.5 MG CAPSULE PO SCH (08:43)
[2022-10-19] MEDS: DULoxetine 30 MG CAPSULE PO SCH (08:43)
[2022-10-19] MEDS: ACETAMINOPHEN 500 MG TABLET PO SCH ×3 (08:43→21:02)
[2022-10-19] MEDS: LISINOPRIL 20 MG TABLET PO SCH (08:44)
[2022-10-19] MEDS: RIFAMPIN 600 MG in 0.9 % SODIUM CHLORIDE 100 ML IV SCH (10:56)
--- NOTE | 2022-10-19 12:40 | Orthopedic Progress Note ---
SUBJECTIVE Subjective Patient information: Note initiated : 10/19/22 at 12:39 pm Service Date, if different from initiated Date: [] Patient: Leonides Jenkins 52 y/o M admitted on 10/10/22 for increased knee pain. Chief Complaint: [no acute issues overnight.] Principal diagnosis: Septic Rt knee s/p irrigation & debridement Constitutional Vitals: Vital Signs Temp Pulse Resp BP Pulse Ox O2 Del Method O2 Flow Rate 98.1 F 82 20 139/81 96 Room Air 0 10/19/22 12:00 10/19/22 12:00 10/19/22 12:00 10/19/22 12:00 10/19/22 12:00 10/19/22 12:00 10/19/22 12:00 Period Temp Pulse Resp BP Sys/Ward Pulse Ox O2 Del Method O2 Flow Rate Last 24 Hr 97.4 F-98.6 F 73-82 16-20 134-154/71-94 93-96 Room Air-Room Air 0 Intake and Output 10/19/22 10/19/22 10/19/22 03:59 11:59 19:59 Intake Total 825 Output Total 725 Balance 100 Intake & Output: Intake & Output 10/19/22 10/19/22 10/19/22 03:59 11:59 19:59 Intake Total 825 Output Total 725 Balance 100 Intake: IV 500 Vancomycin 1,750 mg In Sodium 500 Chloride 0.9% 500 ml @ 250 mls/ hr IV Q12H [facility] Rx#:[id number] Oral 325 Output: Void Amount 725 Other: Urine Appearance Clear Urine Color Yellow # Voids 1 Additional findings Additional findings: alert and appropriate today right knee: dressing clean dry and intact OBJ DATA Labs 10/15/22 05:45 10/15/22 05:45 Labs: Abnormal Lab Results 10/18/22 08:22 C-Reactive Protein 14.30 H Meds: Medications Acetaminophen (Acetaminophen 500 Mg Tablet) 1,000 mg PO TID [facility]; Protocol Last Admin: 10/19/22 08:43 Dose: 1,000 mg Albuterol Sulfate (Albuterol Sulfate 60 Puff Inhaler) 2 puff IH Q4HP PRN PRN Reason: for dyspnea Albuterol/Ipratropium (Ipratropium/Albuterol 3 Ml Ampul.Neb) 3 ml NEB Q6HP [facility] Aspirin (Aspirin 81 Mg Tab.Chew) 81 mg CHEWED BID [facility] Last Admin: 10/19/22 08:42 Dose: 81 mg Bisacodyl (Bisacodyl 10 Mg Supp.Rect) [address] Q2-3DAYS PRN PRN Reason: Constipation Diphenhydramine HCl (Diphenhydramine 25 Mg Capsule) 25 mg PO HSP PRN PRN Reason: Insomnia Last Admin: 10/16/22 00:20 Dose: 25 mg Docusate Sodium (Docusate Sodium 100 Mg Capsule) 100 mg PO BID [facility] Last Admin: 10/19/22 08:43 Dose: 100 mg Duloxetine HCl (Duloxetine 30 Mg Capsule) 30 mg PO QDAY [facility] Last Admin: 10/19/22 08:43 Dose: 30 mg Heparin Sodium (Porcine) (Heparin Flush 10 Units/Ml 5 Ml Syringe) 2 ml IV Q12 [facility] Last Admin: 10/19/22 08:44 Dose: Not Given Hydrochlorothiazide (Hydrochlorothiazide 12.5 Mg Capsule) 12.5 mg PO DAILY [facility] Last Admin: 10/19/22 08:43 Dose: 12.5 mg Hydroxyzine HCl (Hydroxyzine 25 Mg Tablet) 50 mg PO HS [facility] Last Admin: 10/18/22 21:00 Dose: 50 mg Rifampin 600 mg/ Sodium (Chloride) 100 mls @ 100 mls/hr IV Q24H [facility]; Protocol Last Admin: 10/19/22 10:56 Dose: 100 mls/hr Vancomycin HCl 1,750 mg/ (Sodium Chloride) 500 mls @ 250 mls/hr IV Q12H [facility] Last Infusion: 10/19/22 02:25 Dose: Infused Lisinopril (Lisinopril 20 Mg Tablet) 20 mg PO DAILY [facility] Last Admin: 10/19/22 08:44 Dose: 20 mg Magnesium Hydroxide (Magnesium Hydroxide 30 Ml Oral.Susp) 30 ml PO BIDP PRN PRN Reason: Constipation Melatonin (Melatonin 3 Mg Tablet) 3 mg PO QPM@1900 [facility] Last Admin: 10/18/22 19:51 Dose: 3 mg Methocarbamol (Methocarbamol 750 Mg Tablet) 750 mg PO TIDP PRN PRN Reason: Muscle Spasm Last Admin: 10/19/22 11:41 Dose: 750 mg Olanzapine (Olanzapine 5 Mg Tablet) 5 mg PO TIDP PRN PRN Reason: agitation Last Admin: 10/18/22 03:05 Dose: 5 mg Omeprazole (Omeprazole 20 Mg Capsule) 20 mg PO QAMAC [facility] Last Admin: 10/19/22 07:44 Dose: 20 mg Ondansetron HCl (Ondansetron 4 Mg/2 Ml Vial) 4 mg IV Q4HP PRN; Protocol PRN Reason: Nausea And Vomiting Last Admin: 10/13/22 21:12 Dose: 4 mg Oxycodone HCl (Oxycodone Hcl 5 Mg Tablet) 10 - 20 mg PO Q6HP PRN; Protocol PRN Reason: Pain Last Admin: 10/19/22 11:41 Dose: 10 mg Polyethylene Glycol (Polyethylene Glycol 3350 17 Gm Packet) 17 gm PO DAILYP PRN PRN Reason: Constipation Senna (Sennosides 1 Tablet) 2 tab PO HS [facility] Last Admin: 10/18/22 21:01 Dose: Not Given Sodium Biphosphate/Sodium Phosphate (Fleets Adult Enema) [address] Q3-4DAYS PRN PRN Reason: Constipation Sodium Chloride (0.9 % Sodium Chloride 10 Ml Syringe) 10 ml IV Q8 [facility] Last Admin: 10/19/22 06:15 Dose: 10 ml Sodium Chloride (0.9 % Sodium Chloride 10 Ml Syringe) 10 ml IV Q12 [facility] Last Admin: 10/19/22 10:56 Dose: 10 ml Sodium Chloride (0.9 % Sodium Chloride 10 Ml Syringe) 10 ml IV UD PRN PRN Reason: FLUSH Throat Lozenges (Benzocaine/Menthol 1 Lozenge) 1 lozenge PO PRN PRN PRN Reason: Sore Throat Vancomycin HCl (Vancomycin Per Pharmacy) 1 order IV UD [facility]; Protocol A/P Assessment and plan (1) Infection of prosthetic right knee joint: Status: Acute (2) Postoperative infection of knee: Assessment and plan: POD9 s/p I&D total knee arthroplasty infection, poly exchange, antibiotic bead placement -- 50% weight bearing, hinged knee brace with ambulation -- blood culture negative, staph aureus with sensitivity with positive for MRSA --------IV access is an issue. Recommend midline or PICC line. If patient ends of d/c home then can d/c prior to d/c. However, IV access is a priority from my standpoint. --------Vancomycin increased to 1750mg from 1500 as trough is increased 13. Goal is 15-20. Continue rifampin -- Off CIWI for past 5 1/2 days. No etoh last 2 1/2 days. Doing well -- Pain improving and ok control with oral meds -- ok to shower, will see policy regarding having mother stay with him overnight -- dispo: will need SNF for IV abx-Prefer total of 6 weeks IV antibotics. Continue to work on disposition but potentially early next week. Status: Acute Time Spent With Patient Time: Total time spent is greater than 50% in coordination of care (as documented) at patient's floor/unit and/or counseling patient:
[2022-10-19] MEDS: VANCOMYCIN 1,750 MG in 0.9 % SODIUM CHLORIDE 500 ML IV SCH (14:10)
[2022-10-19] MEDS: MELATONIN 3 MG TABLET PO SCH (19:11)
[2022-10-19] MEDS ORDERED: oxyCODONE IR 5 MG TABLET PO ONE (20:18)
[2022-10-19] MEDS: hydrOXYzine 25 MG TABLET PO SCH (21:03)
[2022-10-19] MEDS: SENNOSIDES 1 TABLET PO SCH (21:03)
[2022-10-20] MEDS: VANCOMYCIN 1,750 MG in 0.9 % SODIUM CHLORIDE 500 ML IV SCH ×3 (00:06→23:52)
[2022-10-20] MEDS ORDERED: oxyCODONE IR 5 MG TABLET PO ONE ×2 (00:30→06:42)
[2022-10-20] MEDS: oxyCODONE IR 5 MG TABLET PO PRN ×6 (00:30→23:53)
[2022-10-20] MEDS: 0.9 % SODIUM CHLORIDE 10 ML SYRINGE IV SCH ×5 (05:50→20:13)
--- NOTE | 2022-10-20 07:50 | Internal Med Progress Note ---
SUBJECTIVE Subjective Patient information: Note initiated : 10/20/22 at 7:49 am Service Date, if different from initiated Date: [] Patient: Leonides Jenkins 52 y/o M admitted on 10/10/22 for increased knee pain. Chief Complaint: [] Principal diagnosis: Septic Rt knee s/p irrigation & debridement Interval history: Chief Complaint: [Cardiac arrest] 52-year-old obese male with a past medical history significant for hypertension, anxiety/depression, and alcohol abuse who presented to the hospital for elective surgery. The patient underwent right total knee arthroplasty, irrigation, and debridement with polyliner exchange and antibiotic bead placement. Postoperatively, after anesthesia induction, he briefly went into PEA arrest requiring cardiopulmonary resuscitation with ROSC. He was extubated overnight and this morning he was alert, oriented x3. Family were present at the bedside. The patient denies chest pain, shortness of breath or palpitations. There were concerns for mild alcohol withdrawal as he was placed on CIWA protocol and did receive Ativan. The hospitalist service was asked to consult to help medically manage the patient. 10/13: The patient was moved out the ICU to [facility]. He remains quite somnolent as he needs IV Ativan for CIWA protocol. He is receiving beer as well. 10/14: Had a lengthy discussion with RN, and with nurse case manager regarding the patient's behavior. He did sign the AMA form however was quite confused. He was verbally abusive, shouting and yelling yesterday. The patient receives oxycodone, alcohol, and benzodiazepine subsequently by staffing and then becomes quite sedated and somnolent. This morning he was difficult to wake up. I recommended stopping or decreasing IV Ativan. 10/15 Patient states poor sleep but otherwise no new complaints other than headache. Leukocytosis mildly improved today. Anemia stable. Hyponatremia improved. 10/16 Patient complains of poor sleep. Complains of headaches and had some nausea this morning. Continue wound care and placement options. Continue IV antibiotics 10/17 Patient slept great last night he says. Patient cooperative with cares. No acute events overnight 10/[address] unless he is off alcohol. Started holding alcohol yesterday and will monitor him closely if he does not have any symptoms of withdrawal and then plan is to keep him off alcohol so he can go to a rehab with PICC line. Patient seems to be in better spirits today. No overnight event or new complaints other than he had a poor sleepAnd complains of headache at times. Multiple discussions between surgeon in fact infectious disease regarding plan. Ideally we would be IV vancomycin at nursing facility for the duration of the treatment. If the facility cannot take the patient for the entire course which could consider dalbavancin for the remainder of the treatment. As far as oral Zyvox this will could be a consideration after at least 3 to 4 weeks of IV antibiotics. 10/19 Patient seems to be feeling well today. No overnight event or new complaints. Patient cooperative. No issues with withdrawal at this time. Monitoring closely. 10/20 Patient states he is feeling pretty good today. No overnight event or new complaints. Did lose IV site yesterday but a new one placed. Still trying to find placement for him for optimal treatment. No signs of alcohol withdrawal at this point. Continue to monitor closely Review of Systems: denies headache/fever/chills/nausea/vomiting/chest or abdominal pain/cough /dyspnea/diarrhea. Otherwise see above. PHYSICAL EXAM General: Alert, Awake, No acute Distress, obese Eyes/N/T: EOMI, no scleral icterus, Head/Neck: neck supple, full ROM, CV: RRR, 2/6SM, Pulm: Clear b/l, no wheezing/rhonchi/rales, no respiratory distress Abd: soft, nontender, +BS x4 Ext: no clubbing/cyanosis/edema, right knee dressings Neuro: Alert, no focal deficits, moves all extremities,, sensations intact b/l upper/lower Psychiatric: cooperative Skin: warm/dry, normal color Constitutional Vitals: Vital Signs Temp Pulse Resp BP Pulse Ox O2 Del Method O2 Flow Rate 98.1 F 74 18 143/82 92 Room Air 0 10/20/22 04:10 10/20/22 04:10 10/20/22 04:10 10/20/22 04:10 10/20/22 04:10 10/20/22 04:10 10/19/22 12:00 Period Temp Pulse Resp BP Sys/Ward Pulse Ox O2 Del Method O2 Flow Rate Last 24 Hr 98.0 F-98.5 F 70-82 18-20 131-143/77-85 92-98 Room Air-Room Air 0 Intake and Output 10/19/22 10/20/22 10/20/22 19:59 03:59 11:59 Intake Total 960 500 540 Output Total 325 700 Balance 960 175 -160 Weight 105.035 kg Intake & Output: Intake & Output 10/19/22 10/20/22 10/20/22 19:59 03:59 11:59 Intake Total 960 500 540 Output Total 325 700 Balance 960 175 -160 Weight 105.035 kg Intake: IV 600 500 Rifampin 600 mg In Sodium 100 Chloride 0.9% 100 ml @ 100 mls/ hr IV Q24H [facility] Rx#:[id number] Vancomycin 1,750 mg In Sodium 500 500 Chloride 0.9% 500 ml @ 250 mls/ hr IV Q12H [facility] Rx#:[id number] Oral 360 540 Output: Void Amount 325 700 Other: Urine Appearance Clear Clear Urine Color Yellow Yellow Urine Odor Normal Normal OBJ DATA Labs 10/15/22 05:45 10/15/22 05:45 Labs: Abnormal Lab Results 10/18/22 08:22 C-Reactive Protein 14.30 H Meds: Medications Acetaminophen (Acetaminophen 500 Mg Tablet) 1,000 mg PO TID [facility]; Protocol Last Admin: 10/19/22 21:02 Dose: 1,000 mg Albuterol Sulfate (Albuterol Sulfate 60 Puff Inhaler) 2 puff IH Q4HP PRN PRN Reason: for dyspnea Albuterol/Ipratropium (Ipratropium/Albuterol 3 Ml Ampul.Neb) 3 ml NEB Q6HP [facility] Aspirin (Aspirin 81 Mg Tab.Chew) 81 mg CHEWED BID [facility] Last Admin: 10/19/22 21:03 Dose: 81 mg Bisacodyl (Bisacodyl 10 Mg Supp.Rect) 10 mg MD Q2-3DAYS PRN PRN Reason: Constipation Diphenhydramine HCl (Diphenhydramine 25 Mg Capsule) 25 mg PO HSP PRN PRN Reason: Insomnia Last Admin: 10/16/22 00:20 Dose: 25 mg Docusate Sodium (Docusate Sodium 100 Mg Capsule) 100 mg PO BID [facility] Last Admin: 10/19/22 21:02 Dose: 100 mg Duloxetine HCl (Duloxetine 30 Mg Capsule) 30 mg PO QDAY [facility] Last Admin: 10/19/22 08:43 Dose: 30 mg Heparin Sodium (Porcine) (Heparin Flush 10 Units/Ml 5 Ml Syringe) 2 ml IV Q12 [facility] Last Admin: 10/19/22 21:04 Dose: Not Given Hydrochlorothiazide (Hydrochlorothiazide 12.5 Mg Capsule) 12.5 mg PO DAILY [facility] Last Admin: 10/19/22 08:43 Dose: 12.5 mg Hydroxyzine HCl (Hydroxyzine 25 Mg Tablet) 50 mg PO HS [facility] Last Admin: 10/19/22 21:03 Dose: 50 mg Rifampin 600 mg/ Sodium (Chloride) 100 mls @ 100 mls/hr IV Q24H [facility]; Protocol Last Infusion: 10/19/22 12:10 Dose: Infused Vancomycin HCl 1,750 mg/ (Sodium Chloride) 500 mls @ 250 mls/hr IV Q12H [facility] Last Infusion: 10/20/22 02:08 Dose: Infused Lisinopril (Lisinopril 20 Mg Tablet) 20 mg PO DAILY [facility] Last Admin: 10/19/22 08:44 Dose: 20 mg Magnesium Hydroxide (Magnesium Hydroxide 30 Ml Oral.Susp) 30 ml PO BIDP PRN PRN Reason: Constipation Melatonin (Melatonin 3 Mg Tablet) 3 mg PO QPM@1900 [facility] Last Admin: 10/19/22 19:11 Dose: 3 mg Methocarbamol (Methocarbamol 750 Mg Tablet) 750 mg PO TIDP PRN PRN Reason: Muscle Spasm Last Admin: 10/19/22 20:19 Dose: 750 mg Olanzapine (Olanzapine 5 Mg Tablet) 5 mg PO TIDP PRN PRN Reason: agitation Last Admin: 10/18/22 03:05 Dose: 5 mg [facility]epraz[facility] ([facility]) [facility] Admin: 10/19/22 07:44 Dose: 20 mg Ondansetron HCl (Ondansetron 4 Mg/2 Ml Vial) 4 mg IV Q4HP PRN; Protocol PRN Reason: Nausea And Vomiting Last Admin: 10/13/22 21:12 Dose: 4 mg Oxycodone HCl (Oxycodone Hcl 5 Mg Tablet) 10 - 20 mg PO Q4HP PRN; Protocol PRN Reason: Per Pain Protocol Last Admin: 10/20/22 06:42 Dose: 10 mg Polyethylene Glycol (Polyethylene Glycol 3350 17 Gm Packet) 17 gm PO DAILYP PRN PRN Reason: Constipation Senna (Sennosides 1 Tablet) 2 tab PO HS [facility] Last Admin: 10/19/22 21:03 Dose: 2 tab Sodium Biphosphate/Sodium Phosphate (Fleets Adult Enema) 1 dose MD Q3-4DAYS PRN PRN Reason: Constipation Sodium Chloride (0.9 % Sodium Chloride 10 Ml Syringe) 10 ml IV Q8 [facility] Last Admin: 10/20/22 05:50 Dose: 10 ml Sodium Chloride (0.9 % Sodium Chloride 10 Ml Syringe) 10 ml IV Q12 [facility] Last Admin: 10/19/22 21:03 Dose: Not Given Sodium Chloride (0.9 % Sodium Chloride 10 Ml Syringe) 10 ml IV UD PRN PRN Reason: FLUSH Throat Lozenges (Benzocaine/Menthol 1 Lozenge) 1 lozenge PO PRN PRN PRN Reason: Sore Throat Vancomycin HCl (Vancomycin Per Pharmacy) 1 order IV UD [facility]; Protocol A/P Narrative A/P Narrative: A: #Cardiac arrest: -Resolved (2/2 polysubstance abuse and catecholamine response post-induction) -It is unclear if there is a cardiopulmonary process. The patient did have CTA chest which was negative for PE, or aortic disease. Initial cardiac enzymes were unrevealing. TTE did not reveal any evidence of wall motion abnormalities and he has a preserved EF of 65%. Electrolytes monitored and repleted. The patient did drink heavily prior to surgery and this was likely component of withdrawal as the achieve ROSC quite quickly. It was also discovered he has been using meth prior to surgery #EtOH abuse and W/D: -Patient also endorsed meth use which contributed to his post-op cardiac arrest #Substance Abuse (Meth): #R knee infection: s/p washout (10/10) -ID consulted, cx revealed MRSA -Due to the patient's polysubstance abuse, he may not be appropriate for PICC line unless he goes to SNF. -goal is SNF with PICC - #Hyponatremia: improved #HTN: #GERD: #Obesity: bmi 35, lifestyle modifications P: -updated labs -ID following, cont IV Vanco, Dalbavancin as potential tx, zyvox PO after at least 3 weeks of IV abx -goal is to SNF with PICC -f/u in ID clinic -Postoperative care per orthopedic surgery. Dr. Rivera -hold etoh in hopes of transitioning to SNF, monitor for w/d -cont home ACEI -substance use cessation counseling -PT/OT -CM for placement needs -ppx: ASA per ortho / home ppi Time Spent With Patient Time: Total time spent is greater than 50% in coordination of care (as documented) at patient's floor/unit and/or counseling patient: Subsequent: Total time with patient: 35 - 49 minutes QUALITY VTE Deep Vein Thrombosis/Pulmonary Embolism Present on Admission: No
[2022-10-20] MEDS: ACETAMINOPHEN 500 MG TABLET PO SCH ×3 (08:07→20:12)
[2022-10-20] MEDS: ASPIRIN 81 MG TAB.CHEW CHEWED SCH ×2 (08:08→20:12)
[2022-10-20] MEDS: OMEPRAZOLE 20 MG CAPSULE PO SCH (08:08)
[2022-10-20] MEDS: HYDROCHLOROTHIAZIDE 12.5 MG CAPSULE PO SCH (08:08)
[2022-10-20] MEDS: DOCUSATE SODIUM 100 MG CAPSULE PO SCH ×2 (08:08→20:12)
[2022-10-20] MEDS: LISINOPRIL 20 MG TABLET PO SCH (08:08)
[2022-10-20] MEDS: DULoxetine 30 MG CAPSULE PO SCH (08:08)
--- NOTE | 2022-10-20 09:46 | Orthopedic Progress Note ---
SUBJECTIVE Subjective Patient information: Note initiated : 10/20/22 at 9:40 am Service Date, if different from initiated Date: [] Patient: Leonides Jenkins 52 y/o M admitted on 10/10/22 for increased knee pain. Chief Complaint: [No acute issues overnight, has soreness about his chest/ribs/back] Principal diagnosis: Septic Rt knee s/p irrigation & debridement Constitutional Vitals: Vital Signs Temp Pulse Resp BP Pulse Ox O2 Del Method O2 Flow Rate 98.1 F 74 18 143/82 92 Room Air 0 10/20/22 04:10 10/20/22 04:10 10/20/22 04:10 10/20/22 04:10 10/20/22 04:10 10/20/22 04:10 10/19/22 12:00 Period Temp Pulse Resp BP Sys/Ward Pulse Ox O2 Del Method O2 Flow Rate Last 24 Hr 98.0 F-98.3 F 70-82 18-20 131-143/77-85 92-98 Room Air-Room Air 0 Intake and Output 10/19/22 10/20/22 10/20/22 19:59 03:59 11:59 Intake Total 960 500 540 Output Total 325 700 Balance 960 175 -160 Weight 231 lb 9 oz Intake & Output: Intake & Output 10/19/22 10/20/22 10/20/22 19:59 03:59 11:59 Intake Total 960 500 540 Output Total 325 700 Balance 960 175 -160 Weight 231 lb 9 oz Intake: IV 600 500 Rifampin 600 mg In Sodium 100 Chloride 0.9% 100 ml @ 100 mls/ hr IV Q24H [facility] Rx#:[id number] Vancomycin 1,750 mg In Sodium 500 500 Chloride 0.9% 500 ml @ 250 mls/ hr IV Q12H [facility] Rx#:[id number] Oral 360 540 Output: Void Amount 325 700 Other: Urine Appearance Clear Clear Urine Color Yellow Yellow Urine Odor Normal Normal Additional findings Additional findings: alert, appropriate right knee: silver dressing unraveling at the bottom. Improved erythema, warmth. joint effusion present. foot warm well perfused OBJ DATA Labs 10/15/22 05:45 10/15/22 05:45 Labs: Abnormal Lab Results 10/18/22 08:22 C-Reactive Protein 14.30 H Meds: Medications Acetaminophen (Acetaminophen 500 Mg Tablet) 1,000 mg PO TID [facility]; Protocol Last Admin: 10/20/22 08:07 Dose: 1,000 mg Albuterol Sulfate (Albuterol Sulfate 60 Puff Inhaler) 2 puff IH Q4HP PRN PRN Reason: for dyspnea Albuterol/Ipratropium (Ipratropium/Albuterol 3 Ml Ampul.Neb) 3 ml NEB Q6HP [facility] Aspirin (Aspirin 81 Mg Tab.Chew) 81 mg CHEWED BID [facility] Last Admin: 10/20/22 08:08 Dose: 81 mg Bisacodyl (Bisacodyl 10 Mg Supp.Rect) 10 mg [place] Q2-3DAYS PRN PRN Reason: Constipation Diphenhydramine HCl (Diphenhydramine 25 Mg Capsule) 25 mg PO HSP PRN PRN Reason: Insomnia Last Admin: 10/16/22 00:20 Dose: 25 mg Docusate Sodium (Docusate Sodium 100 Mg Capsule) 100 mg PO BID [facility] Last Admin: 10/20/22 08:08 Dose: 100 mg Duloxetine HCl (Duloxetine 30 Mg Capsule) 30 mg PO QDAY [facility] Last Admin: 10/20/22 08:08 Dose: 30 mg Heparin Sodium (Porcine) (Heparin Flush 10 Units/Ml 5 Ml Syringe) 2 ml IV Q12 [facility] Last Admin: 10/20/22 08:09 Dose: Not Given Hydrochlorothiazide (Hydrochlorothiazide 12.5 Mg Capsule) 12.5 mg PO DAILY [facility] Last Admin: 10/20/22 08:08 Dose: 12.5 mg Hydroxyzine HCl (Hydroxyzine 25 Mg Tablet) 50 mg PO HS [facility] Last Admin: 10/19/22 21:03 Dose: 50 mg Rifampin 600 mg/ Sodium (Chloride) 100 mls @ 100 mls/hr IV Q24H [facility]; Protocol Last Infusion: 10/19/22 12:10 Dose: Infused Vancomycin HCl 1,750 mg/ (Sodium Chloride) 500 mls @ 250 mls/hr IV Q12H [facility] Last Infusion: 10/20/22 02:08 Dose: Infused Lisinopril (Lisinopril 20 Mg Tablet) 20 mg PO DAILY [facility] Last Admin: 10/20/22 08:08 Dose: 20 mg Magnesium Hydroxide (Magnesium Hydroxide 30 Ml Oral.Susp) 30 ml PO BIDP PRN PRN Reason: Constipation Melatonin (Melatonin 3 Mg Tablet) 3 mg PO QPM@1900 [facility] Last Admin: 10/19/22 19:11 Dose: 3 mg Methocarbamol (Methocarbamol 750 Mg Tablet) 750 mg PO TIDP PRN PRN Reason: Muscle Spasm Last Admin: 10/19/22 20:19 Dose: 750 mg Olanzapine (Olanzapine 5 Mg Tablet) 5 mg PO TIDP PRN PRN Reason: agitation Last Admin: 10/18/22 03:05 Dose: 5 mg Omeprazole (Omeprazole 20 Mg Capsule) 20 mg PO QAMAC [facility] Last Admin: 10/20/22 08:08 Dose: 20 mg Ondansetron HCl (Ondansetron 4 Mg/2 Ml Vial) 4 mg IV Q4HP [facility]; Protocol PRN Reason: Nausea And Vomiting Last Admin: 10/13/22 21:12 Dose: 4 mg Oxycodone HCl (Oxycodone Hcl 5 Mg Tablet) 10 - 20 mg PO Q4HP [facility]; Protocol PRN Reason: Per Pain Protocol Last Admin: 10/20/22 06:42 Dose: 10 mg Polyethylene Glycol (Polyethylene Glycol 3350 17 Gm Packet) 17 gm PO DAILYP PRN PRN Reason: Constipation Senna (Sennosides 1 Tablet) 2 tab PO HS [facility] Last Admin: 10/19/22 21:03 Dose: 2 tab Sodium Biphosphate/Sodium Phosphate (Fleets Adult Enema) 1 dose [place] Q3-4DAYS PRN PRN Reason: Constipation Sodium Chloride (0.9 % Sodium Chloride 10 Ml Syringe) 10 ml IV Q8 [facility] Last Admin: 10/20/22 05:50 Dose: 10 ml Sodium Chloride (0.9 % Sodium Chloride 10 Ml Syringe) 10 ml IV Q12 [facility] Last Admin: 10/20/22 08:09 Dose: 10 ml Sodium Chloride (0.9 % Sodium Chloride 10 Ml Syringe) 10 ml IV UD PRN PRN Reason: FLUSH Throat Lozenges (Benzocaine/Menthol 1 Lozenge) 1 lozenge PO PRN PRN PRN Reason: Sore Throat Vancomycin HCl (Vancomycin Per Pharmacy) 1 order IV UD [facility]; Protocol A/P Assessment and plan (1) History of total right knee replacement: Status: Acute (2) Postoperative infection of knee: Assessment and plan: POD10 s/p I&D total knee arthroplasty infection, poly exchange, antibiotic bead placement -- 50% weight bearing, hinged knee brace with ambulation -- blood culture negative, staph aureus with sensitivity with positive for MRSA --------Improved IV access with midline. --------Vancomycin increased to 1750mg from 1500 as trough is increased 13. Rep eat Trough tomorrow. Goal is 15-20. Continue rifampin -- Off CIWI for past 6 1/2 days. No etoh last 3 1/2 days. Doing well -- Pain improving and ok control with oral meds. Chest/rib pain from CPR. -- ok to shower -- dispo: will need SNF for IV abx-Prefer total of 6 weeks IV antibotics. Discussed with case management/Hospitalist- facility that would likely accept but only 2 weeks which is less than ideal as would want total of 6 weeks IV abx which would require about a 30 day stay at facility. Facility that previously required patient to be off of CIWI and no risk of withdrawl might be an option. Will revisit Saturday as patient is doing well overall with improved attitude. Status: Acute Time Spent With Patient Time: Total time spent is greater than 50% in coordination of care (as documented) at patient's floor/unit and/or counseling patient:
[2022-10-20 09:49] LABS: Basophils # (Auto) 0.04 K/mcL (0.00-0.30); Basophils % (Auto) 0.3 % (0.0-2.0); Eosinophils # (Auto) 0.24 K/mcL (0.00-0.70); Hematocrit 33.6 % (40.1-51.0); Hemoglobin 11.1 g/dL (13.7-17.5); Lymphocytes # (Auto) 1.16 K/mcL (1.50-4.80); Lymphocytes % (Auto) 9.7 % (15.5-49.0); Mean Cell Volume 88.4 fL (80.0-100.0); Mean Platelet Volume 8.7 fL (8.8-12.5); Monocytes # (Auto) 0.56 K/mcL (0.10-0.90); Monocytes % (Auto) 4.7 % (1.0-12.0); Neutrophils % (Auto) 82.9 % (38.0-78.0); Platelet Count 825 K/mcL (140-440); Red Cell Distribution Width 14.6 % (11.5-14.5); WBC 11.9 K/mcL (4.5-11.0)
[2022-10-20 10:19] LABS: ALT/SGPT 10 U/L (<40); AST/SGOT 14 U/L (<40); Albumin 3.2 gm/dL (3.2-5.2); Albumin/Globulin Ratio 0.7 (1.0-2.3); Alkaline Phosphatase 106 U/L (39-117); Bilirubin,Direct < 0.2 mg/dL (0-0.3); Bilirubin,Total 0.2 mg/dL (0.1-1.0); Blood Urea Nitrogen 14 mg/dL (6-20); Calcium 10.1 mg/dL (8.6-10.4); Carbon Dioxide 25 mmol/L (22-30); Chloride 95 mmol/L (96-108); Globulin 4.8 gm/dL (2.2-3.7); Glomerular Filtration Rate 116; Glucose 157 mg/dL (70-105); Lactate Dehydrogenase 183 U/L (135-225); Phosphorous 3.6 mg/dL (2.5-4.5); Triglycerides 142 mg/dL (<150); Uric Acid 5.1 mg/dL (2.5-8.0)
[2022-10-20] MEDS: RIFAMPIN 600 MG in 0.9 % SODIUM CHLORIDE 100 ML IV SCH (10:29)
[2022-10-20] MEDS: METHOCARBAMOL 750 MG TABLET PO PRN ×2 (12:48→20:12)
[2022-10-20] MEDS: hydrOXYzine 25 MG TABLET PO SCH (20:12)
[2022-10-20] MEDS: SENNOSIDES 1 TABLET PO SCH (20:12)
[2022-10-20] MEDS: MELATONIN 3 MG TABLET PO SCH (20:12)
[2022-10-20] MEDS: diphenhydrAMINE 25 MG CAPSULE PO PRN (23:53)
[2022-10-21] MEDS: oxyCODONE IR 5 MG TABLET PO PRN ×5 (04:59→21:08)
[2022-10-21] MEDS: 0.9 % SODIUM CHLORIDE 10 ML SYRINGE IV SCH ×5 (05:00→20:31)
[2022-10-21] MEDS: OMEPRAZOLE 20 MG CAPSULE PO SCH (07:29)
--- NOTE | 2022-10-21 07:34 | Internal Med Progress Note ---
SUBJECTIVE Subjective Patient information: Note initiated : 10/21/22 at 7:33 am Service Date, if different from initiated Date: [] Patient: Leonides Jenkins 52 y/o M admitted on 10/10/22 for increased knee pain. Chief Complaint: [] Principal diagnosis: Septic Rt knee s/p irrigation & debridement Interval history: Chief Complaint: [Cardiac arrest] 52-year-old obese male with a past medical history significant for hypertension, anxiety/depression, and alcohol abuse who presented to the hospital for elective surgery. The patient underwent right total knee arthroplasty, irrigation, and debridement with polyliner exchange and antibiotic bead placement. Postoperatively, after anesthesia induction, he briefly went into PEA arrest requiring cardiopulmonary resuscitation with ROSC. He was extubated overnight and this morning he was alert, oriented x3. Family were present at the bedside. The patient denies chest pain, shortness of breath or palpitations. There were concerns for mild alcohol withdrawal as he was placed on CIWA protocol and did receive Ativan. The hospitalist service was asked to consult to help medically manage the patient. 10/13: The patient was moved out the ICU to [facility]. He remains quite somnolent as he needs IV Ativan for CIWA protocol. He is receiving beer as well. 10/14: Had a lengthy discussion with RN, and with employment case manager regarding the patient's behavior. He did sign the AMA form however was quite confused. He was verbally abusive, shouting and yelling yesterday. The patient receives oxycodone, alcohol, and benzodiazepine subsequently by staffing and then becomes quite sedated and somnolent. This morning he was difficult to wake up. I recommended stopping or decreasing IV Ativan. 10/15 Patient states poor sleep but otherwise no new complaints other than headache. Leukocytosis mildly improved today. Anemia stable. Hyponatremia improved. 10/16 Patient complains of poor sleep. Complains of headaches and had some nausea this morning. Continue wound care and placement options. Continue IV antibiotics 10/17 Patient slept great last night he says. Patient cooperative with cares. No acute events overnight 10/[address] unless he is off alcohol. Started holding alcohol yesterday and will monitor him closely if he does not have any symptoms of withdrawal and then plan is to keep him off alcohol so he can go to a rehab with PICC line. Patient seems to be in better spirits today. No overnight event or new complaints other than he had a poor sleepAnd complains of headache at times. Multiple discussions between surgeon in fact infectious disease regarding plan. Ideally we would be IV vancomycin at nursing facility for the duration of the treatment. If the facility cannot take the patient for the entire course which could consider dalbavancin for the remainder of the treatment. As far as oral Zyvox this will could be a consideration after at least 3 to 4 weeks of IV antibiotics. 10/19 Patient seems to be feeling well today. No overnight event or new complaints. Patient cooperative. No issues with withdrawal at this time. Monitoring closely. 10/20 Patient states he is feeling pretty good today. No overnight event or new complaints. Did lose IV site yesterday but a new one placed. Still trying to find placement for him for optimal treatment. No signs of alcohol withdrawal at this point. Continue to monitor closely 10/21 Poor sleep. No other complaints. Patient seems to be doing well off alcohol. Review of Systems: denies headache/fever/chills/nausea/vomiting/chest or abdominal pain/cough/dyspnea/diarrhea. Otherwise see above. PHYSICAL EXAM General: Alert, Awake, No acute Distress, obese Eyes/N/T: EOMI, no scleral icterus, Head/Neck: neck supple, full ROM, CV: RRR, 2/6SM, Pulm: Clear b/l, no wheezing/rhonchi/rales, no respiratory distress Abd: soft, nontender, +BS x4 Ext: no clubbing/cyanosis/edema, right knee dressings Neuro: Alert, no focal deficits, moves all extremities,, sensations intact b/l upper/lower Psychiatric: cooperative Skin: warm/dry, normal color Constitutional Vitals: Vital Signs Temp Pulse Resp BP Pulse Ox O2 Del Method O2 Flow Rate 98.1 F 87 20 128/70 94 Room Air 0 10/21/22 04:00 10/21/22 04:00 10/21/22 04:00 10/21/22 04:00 10/21/22 04:00 10/21/22 04:00 10/19/22 12:00 Period Temp Pulse Resp BP Sys/Ward Pulse Ox O2 Del Method O2 Flow Rate Last 24 Hr 97.3 F-98.1 F 83-92 16-20 126-143/56-90 93-97 Room Air-Room Air Intake and Output 10/20/22 10/21/22 10/21/22 19:59 03:59 11:59 Intake Total 1500 500 Output Total 500 Balance 1500 500 -500 Weight 104.78 kg Intake & Output: Intake & Output 10/20/22 10/21/22 10/21/22 19:59 03:59 11:59 Intake Total 1500 500 Output Total 500 Balance 1500 500 -500 Weight 104.78 kg Intake: IV 600 500 Rifampin 600 mg In Sodium 100 Chloride 0.9% 100 ml @ 100 mls/ hr IV Q24H [facility] Rx#:[id number] Vancomycin 1,750 mg In Sodium 500 500 Chloride 0.9% 500 ml @ 250 mls/ hr IV Q12H [facility] Rx#:[id number] Oral 500 GI Tube Flush 400 Output: Void Amount 500 Other: Meal Lunch Percent of Meal Consumed 50% Feeding Ability Independent Urine Appearance Clear Urine Color Dark Yellow Urine Odor Normal Stool Size Large Stool Color Brown Stool Consistency Normal for Patient # Bowel Movements 1 OBJ DATA Labs 10/20/22 09:19 10/20/22 09:19 Labs: Abnormal Lab Results 10/20/22 10/20/22 10/18/22 09:19 09:19 08:22 WBC 11.9 H RBC 3.80 L Hgb 11.1 L Hct 33.6 L RDW 14.6 H Plt Count 825 H MPV 8.7 L Neut % (Auto) 82.9 H Lymph % (Auto) 9.7 L Lymph # (Auto) 1.16 L Absolute Neutrophils 9.87 H Chloride 95 L Creatinine 0.6 L Glucose 157 H C-Reactive Protein 14.30 H Globulin 4.8 H Albumin/Globulin Ratio 0.7 L Meds: Medications Acetaminophen (Acetaminophen 500 Mg Tablet) 1,000 mg PO TID [facility]; Protocol Last Admin: 10/20/22 20:12 Dose: 1,000 mg Albuterol Sulfate (Albuterol Sulfate 60 Puff Inhaler) 2 puff IH Q4HP PRN PRN Reason: for dyspnea Albuterol/Ipratropium (Ipratropium/Albuterol 3 Ml Ampul.Neb) 3 ml NEB Q6HP [facility] Aspirin (Aspirin 81 Mg Tab.Chew) 81 mg CHEWED BID [facility] Last Admin: 10/20/22 20:12 Dose: 81 mg Bisacodyl (Bisacodyl 10 Mg Supp.Rect) 10 mg TN Q2-3DAYS PRN PRN Reason: Constipation Diphenhydramine HCl (Diphenhydramine 25 Mg Capsule) 25 mg PO HSP PRN PRN Reason: Insomnia Last Admin: 10/20/22 23:53 Dose: 25 mg Docusate Sodium (Docusate Sodium 100 Mg Capsule) 100 mg PO BID [facility] Last Admin: 10/20/22 20:12 Dose: 100 mg Duloxetine HCl (Duloxetine 30 Mg Capsule) 30 mg PO QDAY [facility] Last Admin: 10/20/22 08:08 Dose: 30 mg Heparin Sodium (Porcine) (Heparin Flush 10 Units/Ml 5 Ml Syringe) 2 ml IV Q12 [facility] Last Admin: 10/20/22 20:13 Dose: Not Given Hydrochlorothiazide (Hydrochlorothiazide 12.5 Mg Capsule) 12.5 mg PO DAILY [facility] Last Admin: 10/20/22 08:08 Dose: 12.5 mg Hydroxyzine HCl (Hydroxyzine 25 Mg Tablet) 50 mg PO HS [facility] Last Admin: 10/20/22 20:12 Dose: 50 mg Rifampin 600 mg/ Sodium (Chloride) 100 mls @ 100 mls/hr IV Q24H [facility]; Protocol Last Infusion: 10/20/22 12:40 Dose: Infused Vancomycin HCl 1,750 mg/ (Sodium Chloride) 500 mls @ 250 mls/hr IV Q12H [facility] Last Infusion: 10/21/22 01:55 Dose: Infused Lisinopril (Lisinopril 20 Mg Tablet) 20 mg PO DAILY [facility] Last Admin: 10/20/22 08:08 Dose: 20 mg Magnesium Hydroxide (Magnesium Hydroxide 30 Ml Oral.Susp) 30 ml PO BIDP PRN PRN Reason: Constipation Melatonin (Melatonin 3 Mg Tablet) 3 mg PO QPM@1900 [facility] Last Admin: 10/20/22 20:12 Dose: 3 mg Methocarbamol (Methocarbamol 750 Mg Tablet) 750 mg PO TIDP PRN PRN Reason: Muscle Spasm Last Admin: 10/20/22 20:12 Dose: 750 mg Olanzapine (Olanzapine 5 Mg Tablet) 5 mg PO TIDP PRN PRN Reason: agitation Last Admin: 10/18/22 03:05 Dose: 5 mg Omeprazole (Omeprazole 20 Mg Capsule) 20 mg PO QAMAC [facility] Last Admin: 10/21/22 07:29 Dose: 20 mg Ondansetron HCl (Ondansetron 4 Mg/2 Ml Vial) 4 mg IV Q4HP PRN; Protocol PRN Reason: Nausea And Vomiting Last Admin: 10/13/22 21:12 Dose: 4 mg Oxycodone HCl (Oxycodone Hcl 5 Mg Tablet) 10 - 20 mg PO Q4HP PRN; Protocol PRN Reason: Per Pain Protocol Last Admin: 10/21/22 04:59 Dose: 20 mg Polyethylene Glycol (Polyethylene Glycol 3350 17 Gm Packet) 17 gm PO DAILYP PRN PRN Reason: Constipation Senna (Sennosides 1 Tablet) 2 tab PO HS [facility] Last Admin: 10/20/22 20:12 Dose: 2 tab Sodium Biphosphate/Sodium Phosphate (Fleets Adult Enema) 1 dose TN Q3-4DAYS PRN PRN Reason: Constipation Sodium Chloride (0.9 % Sodium Chloride 10 Ml Syringe) 10 ml IV Q8 [facility] Last Admin: 10/21/22 05:00 Dose: 10 ml Sodium Chloride (0.9 % Sodium Chloride 10 Ml Syringe) 10 ml IV Q12 [facility] Last Admin: 10/20/22 20:13 Dose: 10 ml Sodium Chloride (0.9 % Sodium Chloride 10 Ml Syringe) 10 ml IV UD PRN PRN Reason: FLUSH Throat Lozenges (Benzocaine/Menthol 1 Lozenge) 1 lozenge PO PRN PRN PRN Reason: Sore Throat Vancomycin HCl (Vancomycin Per Pharmacy) 1 order IV UD [facility]; Protocol A/P Narrative A/P Narrative: A: #Cardiac arrest: -Resolved (2/2 polysubstance abuse and catecholamine response post-induction) -It is unclear if there is a cardiopulmonary process. The patient did have CTA chest which was negative for PE, or aortic disease. Initial cardiac enzymes were unrevealing. TTE did not reveal any evidence of wall motion abnormalities and he has a preserved EF of 65%. Electrolytes monitored and repleted. The patient did drink heavily prior to surgery and this was likely component of withdrawal as the achieve ROSC quite quickly. It was also discovered he has been using meth prior to surgery #EtOH abuse and W/D: -Patient also endorsed meth use which contributed to his post-op cardiac arrest #Substance Abuse (Meth): #R knee infection: s/p washout (10/10) -ID consulted, cx revealed MRSA -Due to the patient's polysubstance abuse, he may not be appropriate for PICC line unless he goes to SNF. -goal is SNF with PICC - #Hyponatremia: improved #HTN: #GERD: #Obesity: bmi 35, lifestyle modifications P: -ID following, cont IV Vanco, Dalbavancin as potential tx, zyvox PO after at least 3 weeks of IV abx -goal is to SNF with PICC -f/u in ID clinic -Postoperative care per orthopedic surgery. Dr. Rivera -hold etoh in hopes of transitioning to SNF, monitor for w/d -cont home ACEI -substance use cessation counseling -PT/OT -CM for placement needs -ppx: ASA per ortho / home ppi Time Spent With Patient Time: Total time spent is greater than 50% in coordination of care (as documented) at patient's floor/unit and/or counseling patient: Subsequent: Total time with patient: 35 - 49 minutes QUALITY VTE Deep Vein Thrombosis/Pulmonary Embolism Present on Admission: No
[2022-10-21] MEDS: ASPIRIN 81 MG TAB.CHEW CHEWED SCH ×2 (09:00→20:30)
[2022-10-21] MEDS: HYDROCHLOROTHIAZIDE 12.5 MG CAPSULE PO SCH (09:00)
[2022-10-21] MEDS: LISINOPRIL 20 MG TABLET PO SCH (09:00)
[2022-10-21] MEDS: DOCUSATE SODIUM 100 MG CAPSULE PO SCH ×2 (09:00→20:30)
[2022-10-21] MEDS: DULoxetine 30 MG CAPSULE PO SCH (09:00)
[2022-10-21] MEDS: ACETAMINOPHEN 500 MG TABLET PO SCH ×3 (09:00→20:30)
[2022-10-21] MEDS: RIFAMPIN 600 MG in 0.9 % SODIUM CHLORIDE 100 ML IV SCH (10:46)
--- NOTE | 2022-10-21 11:45 | Orthopedic Progress Note ---
SUBJECTIVE Subjective Patient information: Note initiated : 10/21/22 at 11:40 am Service Date, if different from initiated Date: [] Patient: Leonides Jenkins 52 y/o M admitted on 10/10/22 for increased knee pain. Chief Complaint: [having some difficulty with sleeping secondary to pain. Otherwise no new complaints] Principal diagnosis: Septic Rt knee s/p irrigation & debridement Constitutional Vitals: Vital Signs Temp Pulse Resp BP Pulse Ox O2 Del Method O2 Flow Rate 98.1 F 87 20 128/70 94 Room Air 0 10/21/22 04:00 10/21/22 04:00 10/21/22 04:00 10/21/22 04:00 10/21/22 04:00 10/21/22 04:00 10/19/22 12:00 Period Temp Pulse Resp BP Sys/Ward Pulse Ox O2 Del Method O2 Flow Rate Last 24 Hr 97.3 F-98.1 F 83-92 16-20 126-143/56-90 93-97 Room Air-Room Air Intake and Output 10/20/22 10/21/22 10/21/22 19:59 03:59 11:59 Intake Total 1500 500 Output Total 500 Balance 1500 500 -500 Weight 231 lb Intake & Output: Intake & Output 10/20/22 10/21/22 10/21/22 19:59 03:59 11:59 Intake Total 1500 500 Output Total 500 Balance 1500 500 -500 Weight 231 lb Intake: IV 600 500 Rifampin 600 mg In Sodium 100 Chloride 0.9% 100 ml @ 100 mls/ hr IV Q24H [facility] Rx#:[id number] Vancomycin 1,750 mg In Sodium 500 500 Chloride 0.9% 500 ml @ 250 mls/ hr IV Q12H [facility] Rx#:[id number] Oral 500 GI Tube Flush 400 Output: Void Amount 500 Other: Meal Lunch Percent of Meal Consumed 50% Feeding Ability Independent Urine Appearance Clear Urine Color Dark Yellow Urine Odor Normal Stool Size Large Stool Color Brown Stool Consistency Normal for Patient # Bowel Movements 1 Additional findings Additional findings: appropriate, alert right knee: dressing clean/dry and intact. effusion presents, decreased swelling, mild warmth. foot warm well perfused. OBJ DATA Labs 10/20/22 09:19 10/20/22 09:19 Labs: Abnormal Lab Results 10/20/22 10/20/22 09:19 09:19 WBC 11.9 H RBC 3.80 L Hgb 11.1 L Hct 33.6 L RDW 14.6 H Plt Count 825 H MPV 8.7 L Neut % (Auto) 82.9 H Lymph % (Auto) 9.7 L Lymph # (Auto) 1.16 L Absolute Neutrophils 9.87 H Chloride 95 L Creatinine 0.6 L Glucose 157 H Globulin 4.8 H Albumin/Globulin Ratio 0.7 L Meds: Medications Acetaminophen (Acetaminophen 500 Mg Tablet) 1,000 mg PO TID [facility]; Protocol Last Admin: 10/21/22 09:00 Dose: 1,000 mg Albuterol Sulfate (Albuterol Sulfate 60 Puff Inhaler) 2 puff IH Q4HP PRN PRN Reason: for dyspnea Albuterol/Ipratropium (Ipratropium/Albuterol 3 Ml Ampul.Neb) 3 ml NEB Q6HP [facility] Aspirin (Aspirin 81 Mg Tab.Chew) 81 mg CHEWED BID [facility] Last Admin: 10/21/22 09:00 Dose: 81 mg Bisacodyl (Bisacodyl 10 Mg Supp.Rect) 10 mg [place] Q2-3DAYS PRN PRN Reason: Constipation Diphenhydramine HCl (Diphenhydramine 25 Mg Capsule) 25 mg PO HSP PRN PRN Reason: Insomnia Last Admin: 10/20/22 23:53 Dose: 25 mg Docusate Sodium (Docusate Sodium 100 Mg Capsule) 100 mg PO BID [facility] Last Admin: 10/21/22 09:00 Dose: 100 mg Duloxetine HCl (Duloxetine 30 Mg Capsule) 30 mg PO QDAY [facility] Last Admin: 10/21/22 09:00 Dose: 30 mg Heparin Sodium (Porcine) (Heparin Flush 10 Units/Ml 5 Ml Syringe) 2 ml IV Q12 [facility] Last Admin: 10/21/22 10:10 Dose: Not Given Hydrochlorothiazide (Hydrochlorothiazide 12.5 Mg Capsule) 12.5 mg PO DAILY [facility] Last Admin: 10/21/22 09:00 Dose: 12.5 mg Hydroxyzine HCl (Hydroxyzine 25 Mg Tablet) 50 mg PO HS [facility] Last Admin: 10/20/22 20:12 Dose: 50 mg Rifampin 600 mg/ Sodium (Chloride) 100 mls @ 100 mls/hr IV Q24H [facility]; Protocol Last Admin: 10/21/22 10:46 Dose: 100 mls/hr Vancomycin HCl 1,750 mg/ (Sodium Chloride) 500 mls @ 250 mls/hr IV Q12H [facility] Last Infusion: 10/21/22 01:55 Dose: Infused Lisinopril (Lisinopril 20 Mg Tablet) 20 mg PO DAILY [facility] Last Admin: 10/21/22 09:00 Dose: 20 mg Magnesium Hydroxide (Magnesium Hydroxide 30 Ml Oral.Susp) 30 ml PO BIDP PRN PRN Reason: Constipation Melatonin (Melatonin 3 Mg Tablet) 3 mg PO QPM@1900 [facility] Last Admin: 10/20/22 20:12 Dose: 3 mg Methocarbamol (Methocarbamol 750 Mg Tablet) 750 mg PO TIDP PRN PRN Reason: Muscle Spasm Last Admin: 10/20/22 20:12 Dose: 750 mg Olanzapine (Olanzapine 5 Mg Tablet) 5 mg PO TIDP PRN PRN Reason: agitation Last Admin: 10/18/22 03:05 Dose: 5 mg Omeprazole (Omeprazole 20 Mg Capsule) 20 mg PO QAMAC [facility] Last Admin: 10/21/22 07:29 Dose: 20 mg Ondansetron HCl (Ondansetron 4 Mg/2 Ml Vial) 4 mg IV Q4HP PRN; Protocol PRN Reason: Nausea And Vomiting Last Admin: 10/13/22 21:12 Dose: 4 mg Oxycodone HCl (Oxycodone Hcl 5 Mg Tablet) 10 - 20 mg PO Q4HP PRN; Protocol PRN Reason: Per Pain Protocol Last Admin: 10/21/22 09:00 Dose: 20 mg Polyethylene Glycol (Polyethylene Glycol 3350 17 Gm Packet) 17 gm PO DAILYP PRN PRN Reason: Constipation Senna (Sennosides 1 Tablet) 2 tab PO HS [facility] Last Admin: 10/20/22 20:12 Dose: 2 tab Sodium Biphosphate/Sodium Phosphate (Fleets Adult Enema) 1 dose [place] Q3-4DAYS PRN PRN Reason: Constipation Sodium Chloride (0.9 % Sodium Chloride 10 Ml Syringe) 10 ml IV Q8 [facility] Last Admin: 10/21/22 05:00 Dose: 10 ml Sodium Chloride (0.9 % Sodium Chloride 10 Ml Syringe) 10 ml IV Q12 [facility] Last Admin: 10/21/22 10:10 Dose: 10 ml Sodium Chloride (0.9 % Sodium Chloride 10 Ml Syringe) 10 ml IV UD PRN PRN Reason: FLUSH Throat Lozenges (Benzocaine/Menthol 1 Lozenge) 1 lozenge PO PRN PRN PRN Reason: Sore Throat Vancomycin HCl (Vancomycin Per Pharmacy) 1 order IV UD [facility]; Protocol A/P Assessment and plan (1) Infection of prosthetic right knee joint: Status: Acute (2) Postoperative infection of knee: Assessment and plan: POD11 s/p I&D total knee arthroplasty infection, poly exchange, antibiotic bead placement -- 50% weight bearing, hinged knee brace with ambulation -- blood culture negative, staph aureus with sensitivity with positive for MRSA --------Improved IV access with midline. --------Vancomycin increased to 1750mg from 1500 as trough after 3 doses yesterday was 15. Dicussed with pharmacy. will keep 1750 and redraw trough prior to dose in AM. Goal is 15-20. Continue rifampin -- Off CIWI for past 7 days. No etoh last 4 1/2 days. Doing well -- Today, patient reports poor pain controlled, affecting sleep as whole body hurts. Got a bit frustrated this AM as he was sleeping finally then woken up. Discussed we will review pain meds and make changes as needed. Conitnue to reinforce that this is a difficult issue for him but he needs to be patience and willingness to adapt to new normal for a while. He has been doing well. -- ok to shower -- dispo: will need SNF for IV abx-Prefer total of 6 weeks IV antibotics. Discussed with case management/Hospitalist- facility that would likely accept but only 2 weeks which is less than ideal as would want total of 6 weeks IV abx which would require about a 30 day stay at facility. Facility that previously required patient to be off of CIWI and no risk of withdrawl might be an option. Will revisit Saturday as patient is doing well overall with improved attitude. Status: Acute Time Spent With Patient Time: Total time spent is greater than 50% in coordination of care (as documented) at patient's floor/unit and/or counseling patient:
--- NOTE | 2022-10-21 12:07 | Discharge Summary ---
Discharge Provider Provider IMPORTANT FOLLOW-UP INFORMATION FOR PCP: Patient information: Note initiated : 10/21/22 at 11:51 am Service Date, if different from initiated Date: [] Patient: Leonides Jenkins 52 y/o M admitted on 10/10/22 for increased knee pain. Chief Complaint: [infection right total knee arthroplasty] Date of admission: 10/10/22 18:49 Discharge date: 10/24/22 Primary care physician: Geetha Garcia Admitting clinician: Darrell Rivera Attending physician on admission: Darrell Rivera Consults: 10/10/22 Consult to Physician [CONS] Urgent Comment: discussed with provider- agreed to see patient. Consulting Provider: Mamta Mejia Reason For Exam: Physician to Consult 10/10/22 19:26 Consult to Physician [CONS] Routine Comment: Consulting Provider: Darrell Rivera Reason For Exam: Physician to Consult 10/12/22 10:00 Consult to Physician [CONS] Routine Comment: Consulting Provider: Al Mcgowan - ID Reason For Exam: Physician to Consult 10/15/22 10:00 Consult to Physician [CONS] Routine Comment: RHN referral Consulting Provider: Isaiah Leiva Reason For Exam: Physician to Consult 10/15/22 13:32 Consult to Physician [CONS] Routine Comment: snf referral Consulting Provider: [facility] Reason For Exam: Physician to Consult 10/18/22 13:54 Consult to Physician [CONS] Routine Comment: Consulting Provider: Al Mcgowan - ID Reason For Exam: Physician to Consult Attending physician on discharge: Darrell Rivera Discharging clinician: Darrell Rivera COURSE Hospital Course Hospital course: Patient admitted on from the emergency room with infected total knee arthroplasty. Underwent irrigation/debridement, poly exchange and antibiotic bead placement that evening and began on IV vancomycin. Upon induction at time of surgery had cardiac arrest and 2 minutes of CPR completed with recovery. Surgery was completed and patient extubated post surgery. Monitored in ICU. It was later determined that this was likely from him having done methamphetamine prior to coming to the ER so had lack of catecholamine response upon induction. He was monitored in the ICU on CIWI protocol where he did get Ativan as was relatively sedated for about 3 days. However, remained hemodynamically stable. CT completed during this time to rule out PE revealed possible aspiration pneumonia so was started on 5 day course of antibiotic. This has been completed without any pulmonary sequela with normal saturations on room air. TTE was completed without abnormal findings. Transferred to the floor and CIWI discontinue where patient became a bit more aggressive/verbal abusive. Did provide etoh with meals. His cultures returned MRSA. Infectious disease was consulted to help guide treatment as well. However, with now know history of IV drug use complicated discharge as he would not be able to d/c home with a PICC line. Given that discussion with patient regarding etoh with meals and his behavior was reviewed. Per discussion with case management regarding placement, he would not be able to have etoh with meals and behavior would have to change. Etoh was d/c on evening of 18Apr. Patient did well without etoh with no signs of withdrawl. Patient also became more compliant with plan and demeanor significantly improved. He worked with therapy in patient. Hospitalist service aided in patient's treatment throughout. He remained hemodynamically stable, afebrile, tolerated oral diet, voided with BM. His CRP was monitored and down trended with it being 11 upon discharge. Vanc dosing changed/titrated with goal between 15-20 but bit elevated on d/c at 27. Kidney function remained stable, liver enzymes normalized after initially being elevated on discharge. 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 Reason for admission: Right infected total knee arthroplasty Procedures: Surgery as noted on [id number] Pertinent studies/significant findings: TTE: normal findings CT chest: no PE, possible aspiration pneumonia Blood culture on admit- no growth, final Right knee culture- MRSA Vanc trough on discharge was high 27 so will have to titrate to 15-20 Time Spent with Patient Time attestation: Total time spent providing and/or coordinating discharge services: Time spent: Greater than 30 minutes Physical Examination Narrative Exam Narrative: alert and appropriate Exam Incision healing: Yes Incision draining: Yes (inferior 1-2 cm ) Incision red: No Incision swollen: Yes Incision inflamed: No Clean and dry: No Weight bearing status: partial Range of motion: 5-90 Discharge Instructions - TKA Patient Instructions Total Knee Protocol: For Total Knee: Start ROM with therapy. Work on gaining full extension of knee. Hip abductor strengthening and gait training instructions provided. Ice for 20-30 minutes every 2-3 hours to help swelling/pain KULDEEP hose to help decrease swelling Dressing Care: Silvasorb gel & gauze - change daily Additional Dressing Instructions: once dressing clean and dry for >24 hours, ok to shower without dressing. No submerging in water such as a bath. Discharge Plan Patient/Caregiver Discharge Instructions Activity: increase activity as tolerated Diet: Regular Diet Activity Restrictions/Additional Instructions: - 50% weight bearing on right lower extremity x2 weeks then progress to full weight bearing. Progress range of motion to get to full extension and knee flexion with goal of flexion 125-130. - Daily dressing changes with Silvasorb and gauze. Once dressing is clean and dry with dressing changes for >24 hours, OK to shower without dressing but no submerging in water such as a bath. No ointments or lotions to the area. - Leave hardik in place until drainage has stopped. Can remove the top 1/2 of hardik in 1 week if inferior portion is still draining. If not, can remove all hardik - KUDLEEP hose in place to help decrease swelling. Prescriptions: New rifampin 600 mg Recon Soln 600 mg IV Q24H 29 Days Qty: 1 0RF olanzapine 5 mg Tablet 5 mg PO TIDP PRN (Reason: agitation) Qty: 60 0RF docusate sodium 100 mg Capsule 100 mg PO BID Qty: 60 0RF gabapentin 300 mg Capsule 300 mg PO BID Qty: 60 0RF oxycodone 5 mg Tablet 10 - 20 mg PO Q4HP PRN (Reason: Pain) Qty: 60 0RF vancomycin-diluent combo no.1 2 gram/400 mL piggyback 2 g IV BID 29 Days Qty: 57905 0RF Continued hydroxyzine HCl 50 mg tablet 50 mg PO HS Qty: 30 5RF clobetasol 0.05 % cream 1 applic topical BID Qty: 60 0RF albuterol sulfate 90 mcg/actuation HFA aerosol inhaler 2 puff PO Q4H PRN (Reason: for dyspnea) Qty: 8.5 1RF lisinopril-hydrochlorothiazide 20-12.5 mg tablet 1 tab PO DAILY Qty: 90 1RF omeprazole 20 mg capsule,delayed release(DR/EC) 20 mg PO QDAY Qty: 90 1RF polyethylene glycol 3350 [HealthyLax] 17 gram Powder In Packet 17 gm PO DAILYP PRN (Reason: Constipation) Qty: 14 0RF docusate sodium 100 mg Capsule 100 mg PO BID Qty: 60 0RF duloxetine 30 mg capsule,delayed release(DR/EC) 30 mg PO QDAY Liver Support capsule 1 cap PO QDAY acetaminophen 500 mg tablet 1,000 mg PO Q8 PRN (Reason: Pain) methocarbamol 500 mg Tablet 500 mg PO TIDP PRN (Reason: Muscle Spasm) Qty: 30 0RF Aspirin 81 mg PO DAILY Discontinued multivitamin Tablet 1 tab PO QDAY omega 0-rax-rzi-fish oil [Fish Oil] 1,200 (144-216) mg Capsule 1 cap PO DAILY oxycodone 7.5 mg tablet, oral only 7.5 - 15 mg PO Q4H PRN (Reason: pain) Qty: 60 0RF hydrocodone-acetaminophen 5-325 mg tablet 1 tab PO Q8H PRN (Reason: pain) Qty: 10 0RF hydrocodone-acetaminophen 5-325 mg tablet 1 tab PO Q8H PRN (Reason: pain) Qty: 10 0RF Other Ambulatory Orders: Physical Therapy at Discharge - TKA (Routine) Location: None Selected Ordered By: Darrell Rivera Discharge Referrals (Routine) Location: None Selected Ordered By: Darrell Rivera Walker (ONCE) Location: None Selected Ordered By: Darrell Rivera Follow Up Plan Follow up with: Geetha Garcia [Primary Care Provider] - Darrell Rivera MD [Physician] - (Please call and schedule a surgical foll ow up in 4 weeks with [facility].) Patient Disposition: Xfer LTC Prognosis: Good Rehab Potential: Good I certify that the patient requires SNF services: Yes (I certify that patient needs LTACH care not SNF.) Overall status at discharge: patient is progressing back to baseline Discharge Comment: for concern/question- [phone] Darrell Rivera Pending Pending Pending: Resuscitation Status Resuscitate (Full Code) Diet Regular Diet Start SatOct 15 1223 Acetaminophen (Acetaminophen 500 Mg Tablet) 1,000 mg PO TID [facility]; Protocol Last Admin: 10/21/22 09:00 Dose: 1,000 mg Documented By: Admin: 10/20/22 20:12 Dose: 1,000 mg Documented By: Admin: 10/20/22 15:03 Dose: 1,000 mg Documented By: Admin: 10/20/22 08:07 Dose: 1,000 mg Documented By: Admin: 10/19/22 21:02 Dose: 1,000 mg Documented By: Admin: 10/19/22 15:00 Dose: 1,000 mg Documented By: Admin: 10/19/22 08:43 Dose: 1,000 mg Documented By: Admin: 10/18/22 20:59 Dose: 1,000 mg Documented By: Admin: 10/18/22 16:26 Dose: 1,000 mg Documented By: Admin: 10/18/22 09:11 Dose: 1,000 mg Documented By: Co-signed By: Admin: 10/17/22 20:00 Dose: 1,000 mg Documented By: Admin: 10/17/22 15:28 Dose: 1,000 mg Documented By: Admin: 10/17/22 08:59 Dose: 1,000 mg Documented By: Admin: 10/16/22 20:19 Dose: 1,000 mg Documented By: Admin: 10/16/22 16:29 Dose: 1,000 mg Documented By: Admin: 10/16/22 08:39 Dose: 1,000 mg Documented By: Admin: 10/15/22 20:04 Dose: 1,000 mg Documented By: Admin: 10/15/22 14:19 Dose: 1,000 mg Documented By: Admin: 10/15/22 08:28 Dose: 1,000 mg Documented By: Admin: 10/14/22 21:24 Dose: 1,000 mg Documented By: Admin: 10/14/22 15:25 Dose: 1,000 mg Documented By: [email or web address] Admin: 10/14/22 09:33 Dose: 1,000 mg Documented By: [email or web address] Admin: 10/13/22 20:11 Dose: Not Given Documented By: [email or web address] Admin: 10/13/22 14:11 Dose: Not Given Documented By: Admin: 10/13/22 09:12 Dose: Not Given Documented By: SAIDA Aspirin (Aspirin 81 Mg Tab.Chew) 81 mg CHEWED BID JAYJAY Last Admin: 10/21/22 09:00 Dose: 81 mg Documented By: Admin: 10/20/22 20:12 Dose: 81 mg Documented By: Admin: 10/20/22 08:08 Dose: 81 mg Documented By: Admin: 10/19/22 21:03 Dose: 81 mg Documented By: Admin: 10/19/22 08:42 Dose: 81 mg Documented By: Admin: 10/18/22 21:00 Dose: 81 mg Documented By: Admin: 10/18/22 09:14 Dose: 81 mg Documented By: Co-signed By: Admin: 10/17/22 21:16 Dose: 81 mg Documented By: Admin: 10/17/22 08:59 Dose: 81 mg Documented By: Admin: 10/16/22 20:19 Dose: 81 mg Documented By: Admin: 10/16/22 08:39 Dose: 81 mg Documented By: Admin: 10/15/22 20:04 Dose: 81 mg Documented By: Admin: 10/15/22 08:28 Dose: 81 mg Documented By: Admin: 10/14/22 21:24 Dose: 81 mg Documented By: Admin: 10/14/22 09:33 Dose: 81 mg Documented By: [email or web address] Admin: 10/13/22 20:10 Dose: 81 mg Documented By: [email or web address] Admin: 10/13/22 09:11 Dose: Not Given Documented By: Admin: 10/12/22 21:09 Dose: 81 mg Documented By: Admin: 10/12/22 08:18 Dose: 81 mg Documented By: Admin: 10/11/22 21:41 Dose: 81 mg Documented By: Admin: 10/11/22 10:11 Dose: 81 mg Documented By: ANN Diphenhydramine HCl (Diphenhydramine 25 Mg Capsule) 25 mg PO HSP PRN PRN Reason: Insomnia Last Admin: 10/20/22 23:53 Dose: 25 mg Documented By: Admin: 10/16/22 00:20 Dose: 25 mg Documented By: Admin: 10/14/22 19:14 Dose: 25 mg Documented By: LYNNETTE Docusate Sodium (Docusate Sodium 100 Mg Capsule) 100 mg PO BID JAYJAY Last Admin: 10/21/22 09:00 Dose: 100 mg Documented By: Admin: 10/20/22 20:12 Dose: 100 mg Documented By: Admin: 10/20/22 08:08 Dose: 100 mg Documented By: Admin: 10/19/22 21:02 Dose: 100 mg Documented By: Admin: 10/19/22 08:43 Dose: 100 mg Documented By: Admin: 10/18/22 21:01 Dose: Not Given Documented By: Admin: 10/18/22 08:57 Dose: 100 mg Documented By: Co-signed By: Admin: 10/17/22 20:01 Dose: 100 mg Documented By: Admin: 10/17/22 08:58 Dose: 100 mg Documented By: Admin: 10/16/22 20:19 Dose: 100 mg Documented By: Admin: 10/16/22 08:40 Dose: 100 mg Documented By: Admin: 10/15/22 20:04 Dose: 100 mg Documented By: Admin: 10/15/22 08:28 Dose: 100 mg Documented By: Admin: 10/14/22 21:24 Dose: 100 mg Documented By: Admin: 10/14/22 09:33 Dose: 100 mg Documented By: [email or web address] Admin: 10/13/22 20:11 Dose: 100 mg Documented By: [email or web address] Admin: 10/13/22 09:11 Dose: Not Given Documented By: Admin: 10/12/22 21:09 Dose: 100 mg Documented By: Admin: 10/12/22 08:18 Dose: 100 mg Documented By: Admin: 10/11/22 21:42 Dose: 100 mg Documented By: Admin: 10/11/22 10:11 Dose: 100 mg Documented By: ANN Duloxetine HCl (Duloxetine 30 Mg Capsule) 30 mg PO QDAY [facility] Admin: 10/21/22 09:00 Dose: 30 mg Documented By: Admin: 10/20/22 08:08 Dose: 30 mg Documented By: Admin: 10/19/22 08:43 Dose: 30 mg Documented By: Admin: 10/18/22 08:58 Dose: 30 mg Documented By: Co-signed By: Admin: 10/17/22 09:00 Dose: 30 mg Documented By: Admin: 10/16/22 08:39 Dose: 30 mg Documented By: Admin: 10/15/22 08:29 Dose: 30 mg Documented By: Admin: 10/14/22 09:34 Dose: 30 mg Documented By: [email or web address] Admin: 10/13/22 09:12 Dose: Not Given Documented By: Admin: 10/12/22 09:00 Dose: 30 mg Documented By: Admin: 10/11/22 10:11 Dose: 30 mg Documented By: ANN Heparin Sodium (Porcine) (Heparin Flush 10 Units/Ml 5 Ml Syringe) 2 ml IV Q12 [facility] Admin: 10/21/22 10:10 Dose: Not Given Documented By: Admin: 10/20/22 20:13 Dose: Not Given Documented By: Admin: 10/20/22 08:09 Dose: Not Given Documented By: Admin: 10/19/22 21:04 Dose: Not Given Documented By: Admin: 10/19/22 08:44 Dose: Not Given Documented By: Admin: 10/18/22 21:00 Dose: Not Given Documented By: Admin: 10/18/22 11:05 Dose: Not Given Documented By: Admin: 10/17/22 20:01 Dose: Not Given Documented By: Admin: 10/17/22 09:00 Dose: Not Given Documented By: Admin: 10/16/22 20:36 Dose: Not Given Documented By: Admin: 10/16/22 09:01 Dose: Not Given Documented By: Admin: 10/15/22 20:54 Dose: Not Given Documented By: Admin: 10/15/22 08:40 Dose: Not Given Documented By: Admin: 10/14/22 19:28 Dose: Not Given Documented By: Admin: 10/14/22 09:34 Dose: Not Given Documented By: Admin: 10/13/22 20:11 Dose: Not Given Documented By: Admin: 10/13/22 09:12 Dose: Not Given Documented By: Admin: 10/12/22 21:01 Dose: Not Given Documented By: Admin: 10/12/22 09:56 Dose: Not Given Documented By: ADAN Hydrochlorothiazide (Hydrochlorothiazide 12.5 Mg Capsule) 12.5 mg PO DAILY [facility] Admin: 10/21/22 09:00 Dose: 12.5 mg Documented By: Admin: 10/20/22 08:08 Dose: 12.5 mg Documented By: Admin: 10/19/22 08:43 Dose: 12.5 mg Documented By: Admin: 10/18/22 09:06 Dose: 12.5 mg Documented By: Co-signed By: Admin: 10/17/22 08:59 Dose: 12.5 mg Documented By: Admin: 10/16/22 08:39 Dose: 12.5 mg Documented By: Admin: 10/15/22 08:28 Dose: 12.5 mg Documented By: Admin: 10/14/22 09:32 Dose: 12.5 mg Documented By: Admin: 10/13/22 16:55 Dose: 12.5 mg Documented By: Admin: 10/12/22 08:18 Dose: 12.5 mg Documented By: Admin: 10/11/22 10:11 Dose: 12.5 mg Documented By: ANN Hydroxyzine HCl (Hydroxyzine 25 Mg Tablet) 50 mg PO HS [facility] Last Admin: 10/20/22 20:12 Dose: 50 mg Documented By: Admin: 10/19/22 21:03 Dose: 50 mg Documented By: Admin: 10/18/22 21:00 Dose: 50 mg Documented By: Admin: 10/17/22 20:00 Dose: 50 mg Documented By: Admin: 10/16/22 20:18 Dose: 50 mg Documented By: Admin: 10/15/22 20:03 Dose: 50 mg Documented By: Admin: 10/14/22 21:24 Dose: 50 mg Documented By: Admin: 10/13/22 20:11 Dose: 50 mg Documented By: Admin: 10/12/22 21:09 Dose: 50 mg Documented By: Admin: 10/11/22 21:47 Dose: 50 mg Documented By: MARCO Rifampin 600 mg/ Sodium (Chloride) 100 mls @ 100 mls/hr IV Q24H JAYJAY; Protocol Last Admin: 10/21/22 10:46 Dose: 100 mls/hr Documented By: Infusion: 10/20/22 12:40 Dose: 0 mls/hr Documented By: Admin: 10/20/22 10:29 Dose: 100 mls/hr Documented By: Infusion: 10/19/22 12:10 Dose: 0 mls/hr Documented By: Admin: 10/19/22 10:56 Dose: 100 mls/hr Documented By: Infusion: 10/18/22 09:44 Dose: 100 mls/hr Documented By: Admin: 10/18/22 08:44 Dose: 100 mls/hr Documented By: Infusion: 10/17/22 13:30 Dose: 0 mls/hr Documented By: Admin: 10/17/22 12:30 Dose: 100 mls/hr Documented By: Infusion: 10/16/22 18:08 Dose: 100 mls/hr Documented By: Admin: 10/16/22 13:04 Dose: 100 mls/hr Documented By: Infusion: 10/15/22 12:00 Dose: 100 mls/hr Documented By: Admin: 10/15/22 10:46 Dose: 100 mls/hr Documented By: BINTA Vancomycin HCl 1,750 mg/ (Sodium Chloride) 500 mls @ 250 mls/hr IV Q12H JAYJAY Last Infusion: 10/21/22 01:55 Dose: 0 mls/hr Documented By: Admin: 10/20/22 23:52 Dose: 250 mls/hr Documented By: Infusion: 10/20/22 15:57 Dose: 0 mls/hr Documented By: Admin: 10/20/22 12:39 Dose: 250 mls/hr Documented By: Infusion: 10/20/22 02:08 Dose: 0 mls/hr Documented By: Admin: 10/20/22 00:06 Dose: 250 mls/hr Documented By: Infusion: 10/19/22 16:14 Dose: 0 mls/hr Documented By: Admin: 10/19/22 14:10 Dose: 333.3 mls/hr Documented By: Infusion: 10/19/22 02:25 Dose: 0 mls/hr Documented By: Admin: 10/18/22 23:58 Dose: 250 mls/hr Documented By: BLANCA Lisinopril (Lisinopril 20 Mg Tablet) 20 mg PO DAILY [facility] Last Admin: 10/21/22 09:00 Dose: 20 mg Documented By: Admin: 10/20/22 08:08 Dose: 20 mg Documented By: Admin: 10/19/22 08:44 Dose: 20 mg Documented By: Admin: 10/18/22 09:02 Dose: 20 mg Documented By: Co-signed By: Admin: 10/17/22 08:59 Dose: 20 mg Documented By: Admin: 10/16/22 08:40 Dose: 20 mg Documented By: Admin: 10/15/22 08:43 Dose: 20 mg Documented By: Admin: 10/14/22 09:32 Dose: 20 mg Documented By: [id number] Admin: 10/13/22 16:55 Dose: 20 mg Documented By: Admin: 10/12/22 08:18 Dose: 20 mg Documented By: Admin: 10/11/22 10:11 Dose: 20 mg Documented By: ANN Melatonin (Melatonin 3 Mg Tablet) 3 mg PO QPM@1900 JAYJAY Last Admin: 10/20/22 20:12 Dose: 3 mg Documented By: Admin: 10/19/22 19:11 Dose: 3 mg Documented By: Admin: 10/18/22 19:51 Dose: 3 mg Documented By: Admin: 10/17/22 20:00 Dose: 3 mg Documented By: Admin: 10/16/22 20:19 Dose: 3 mg Documented By: Admin: 10/15/22 20:04 Dose: 3 mg Documented By: Admin: 10/14/22 19:14 Dose: 3 mg Documented By: LYNNETTE Methocarbamol (Methocarbamol 750 Mg Tablet) 750 mg PO TIDP PRN PRN Reason: Muscle Spasm Last Admin: 10/20/22 20:12 Dose: 750 mg Documented By: Admin: 10/20/22 12:48 Dose: 750 mg Documented By: Admin: 10/19/22 20:19 Dose: 750 mg Documented By: Admin: 10/19/22 11:41 Dose: 750 mg Documented By: Admin: 10/19/22 02:24 Dose: 750 mg Documented By: Admin: 10/18/22 19:02 Dose: 750 mg Documented By: Admin: 10/18/22 11:44 Dose: 750 mg Documented By: Admin: 10/18/22 03:03 Dose: 750 mg Documented By: Admin: 10/17/22 19:55 Dose: 750 mg Documented By: Admin: 10/17/22 15:38 Dose: 750 mg Documented By: Admin: 10/16/22 20:18 Dose: 750 mg Documented By: Admin: 10/16/22 16:30 Dose: 750 mg Documented By: Admin: 10/16/22 08:40 Dose: 750 mg Documented By: BINTA Olanzapine (Olanzapine 5 Mg Tablet) 5 mg PO TIDP PRN PRN Reason: agitation Last Admin: 10/18/22 03:05 Dose: 5 mg Documented By: Admin: 10/16/22 00:20 Dose: 5 mg Documented By: Admin: 10/15/22 17:04 Dose: 5 mg Documented By: Admin: 10/14/22 19:14 Dose: 5 mg Documented By: LYNNETTE Omeprazole (Omeprazole 20 Mg Capsule) 20 mg PO QAMAC [facility] Last Admin: 10/21/22 07:29 Dose: 20 mg Documented By: Admin: 10/20/22 08:08 Dose: 20 mg Documented By: Admin: 10/19/22 07:44 Dose: 20 mg Documented By: Admin: 10/18/22 11:05 Dose: Not Given Documented By: Admin: 10/17/22 08:58 Dose: 20 mg Documented By: Admin: 10/16/22 07:14 Dose: 20 mg Documented By: Admin: 10/15/22 06:51 Dose: 20 mg Documented By: Admin: 10/14/22 09:33 Dose: 20 mg Documented By: [email or web address] Admin: 10/13/22 07:39 Dose: Not Given Documented By: Admin: 10/12/22 08:18 Dose: 20 mg Documented By: Admin: 10/11/22 07:46 Dose: 20 mg Documented By: ANN Ondansetron HCl (Ondansetron 4 Mg/2 Ml Vial) 4 mg IV Q4HP PRN; Protocol PRN Reason: Nausea And Vomiting Last Admin: 10/13/22 21:12 Dose: 4 mg Documented By: DENA Oxycodone HCl (Oxycodone Hcl 5 Mg Tablet) 10 - 20 mg PO Q4HP PRN; Protocol PRN Reason: Per Pain Protocol Last Admin: 10/21/22 09:00 Dose: 20 mg Documented By: Admin: 10/21/22 04:59 Dose: 20 mg Documented By: Admin: 10/20/22 23:53 Dose: 20 mg Documented By: Admin: 10/20/22 19:09 Dose: 20 mg Documented By: Admin: 10/20/22 15:03 Dose: 10 mg Documented By: Admin: 10/20/22 12:49 Dose: 10 mg Documented By: Admin: 10/20/22 06:42 Dose: 10 mg Documented By: Admin: 10/20/22 00:30 Dose: 10 mg Documented By: Admin: 10/19/22 20:19 Dose: 10 mg Documented By: MIRA Root (Sennosides 1 Tablet) 2 tab PO HS [facility] Last Admin: 10/20/22 20:12 Dose: 2 tab Documented By: Admin: 10/19/22 21:03 Dose: 2 tab Documented By: Admin: 10/18/22 21:01 Dose: Not Given Documented By: Admin: 10/17/22 20:00 Dose: 2 tab Documented By: Admin: 10/16/22 20:18 Dose: 2 tab Documented By: Admin: 10/15/22 20:04 Dose: 2 tab Documented By: Admin: 10/14/22 21:25 Dose: 2 tab Documented By: Admin: 10/13/22 20:11 Dose: 2 tab Documented By: Admin: 10/12/22 21:09 Dose: 2 tab Documented By: Admin: 10/11/22 21:42 Dose: 2 tab Documented By: MARCO Sodium Chloride (0.9 % Sodium Chloride 10 Ml Syringe) 10 ml IV Q8 [facility] Last Admin: 10/21/22 05:00 Dose: 10 ml Documented By: Admin: 10/20/22 20:13 Dose: 10 ml Documented By: Admin: 10/20/22 16:36 Dose: 10 ml Documented By: Admin: 10/20/22 05:50 Dose: 10 ml Documented By: Admin: 10/19/22 21:04 Dose: 10 ml Documented By: Admin: 10/19/22 14:39 Dose: 10 ml Documented By: Admin: 10/19/22 06:15 Dose: 10 ml Documented By: Admin: 10/18/22 20:59 Dose: 10 ml Documented By: Admin: 10/18/22 14:19 Dose: 10 ml Documented By: Co-signed By: Admin: 10/18/22 08:50 Dose: 10 ml Documented By: Admin: 10/17/22 20:01 Dose: 10 ml Documented By: Admin: 10/17/22 15:26 Dose: 10 ml Documented By: Admin: 10/17/22 10:46 Dose: 10 ml Documented By: Admin: 10/17/22 08:59 Dose: 10 ml Documented By: Admin: 10/16/22 20:19 Dose: 10 ml Documented By: Admin: 10/16/22 16:30 Dose: 10 ml Documented By: Admin: 10/16/22 08:40 Dose: 10 ml Documented By: Admin: 10/16/22 06:01 Dose: 10 ml Documented By: Admin: 10/15/22 20:05 Dose: 10 ml Documented By: Admin: 10/15/22 14:19 Dose: 10 ml Documented By: Admin: 10/15/22 10:47 Dose: 10 ml Documented By: Admin: 10/15/22 05:14 Dose: 10 ml Documented By: Admin: 10/14/22 21:28 Dose: 10 ml Documented By: Admin: 10/14/22 15:26 Dose: 10 ml Documented By: [email or web address] Admin: 10/14/22 05:43 Dose: 10 ml Documented By: Admin: 10/13/22 20:11 Dose: Not Given Documented By: Admin: 10/13/22 12:32 Dose: Not Given Documented By: Admin: 10/13/22 04:47 Dose: Not Given Documented By: Admin: 10/12/22 21:10 Dose: 10 ml Documented By: Admin: 10/12/22 14:01 Dose: 10 ml Documented By: Admin: 10/12/22 04:55 Dose: 10 ml Documented By: Admin: 10/11/22 21:43 Dose: 10 ml Documented By: Admin: 10/11/22 14:19 Dose: 10 ml Documented By: Admin: 10/11/22 05:35 Dose: 10 ml Documented By: SRODGERS Sodium Chloride (0.9 % Sodium Chloride 10 Ml Syringe) 10 ml IV Q12 JAYJAY Last Admin: 10/21/22 10:10 Dose: 10 ml Documented By: Admin: 10/20/22 20:13 Dose: 10 ml Documented By: Admin: 10/20/22 08:09 Dose: 10 ml Documented By: Admin: 10/19/22 21:03 Dose: Not Given Documented By: Admin: 10/19/22 10:56 Dose: 10 ml Documented By: Admin: 10/18/22 21:01 Dose: Not Given Documented By: Admin: 10/18/22 11:05 Dose: 10 ml Documented By: Admin: 10/17/22 21:16 Dose: 10 ml Documented By: Admin: 10/17/22 10:47 Dose: 10 ml Documented By: Admin: 10/16/22 20:36 Dose: Not Given Documented By: Admin: 10/16/22 09:01 Dose: Not Given Documented By: Admin: 10/15/22 22:03 Dose: Not Given Documented By: Admin: 10/15/22 10:58 Dose: Not Given Documented By: Admin: 10/14/22 21:28 Dose: 10 ml Documented By: Admin: 10/14/22 09:35 Dose: 10 ml Documented By: [email or web address] Admin: 10/13/22 20:11 Dose: 10 ml Documented By: [email or web address] Admin: 10/13/22 09:12 Dose: Not Given Documented By: Admin: 10/12/22 21:02 Dose: Not Given Documented By: Admin: 10/12/22 09:56 Dose: Not Given Documented By: ADAN Shift Summary 10/21/22 02:58 Shift Summary by Edel Brown Patient is pleasant tonight A/O. He ambulated to BR, FWW, SBA. Mary x 3. VSS on RA. Dressing is CDI. Patient has rested off and on. Complaining of throbbing more tonight in hi knee. Denies nausea. Calls appropriately. Initialized on 10/21/22 02:58 - END OF NOTE
[2022-10-21] MEDS: VANCOMYCIN 1,750 MG in 0.9 % SODIUM CHLORIDE 500 ML IV SCH ×2 (12:22→21:08)
[2022-10-21] MEDS: METHOCARBAMOL 750 MG TABLET PO PRN ×2 (13:22→20:30)
[2022-10-21] MEDS: SENNOSIDES 1 TABLET PO SCH (20:30)
[2022-10-21] MEDS: hydrOXYzine 25 MG TABLET PO SCH (20:30)
[2022-10-21] MEDS: GABAPENTIN 300 MG CAPSULE PO SCH (20:30)
[2022-10-21] MEDS: MELATONIN 3 MG TABLET PO SCH (20:30)
[2022-10-21] MEDS: diphenhydrAMINE 25 MG CAPSULE PO PRN (21:16)
[2022-10-21] MEDS: OLANZapine 5 MG TABLET PO PRN (21:16)
[2022-10-22] MEDS: oxyCODONE IR 5 MG TABLET PO PRN ×6 (02:29→23:55)
[2022-10-22] MEDS: METHOCARBAMOL 750 MG TABLET PO PRN ×2 (05:28→14:12)
[2022-10-22] MEDS: 0.9 % SODIUM CHLORIDE 10 ML SYRINGE IV SCH ×6 (05:38→21:23)
--- NOTE | 2022-10-22 06:35 | Orthopedic Progress Note ---
SUBJECTIVE Subjective Patient information: Note initiated : 10/22/22 at 6:29 am Service Date, if different from initiated Date: [] Patient: Leonides Jenkins 52 y/o M admitted on 10/10/22 for increased knee pain. Chief Complaint: [no acute events overnight.] Principal diagnosis: Septic Rt knee s/p irrigation & debridement Constitutional Vitals: Vital Signs Temp Pulse Resp BP Pulse Ox O2 Del Method O2 Flow Rate 97.3 F 80 20 120/78 94 Room Air 0 10/21/22 23:54 10/22/22 04:00 10/22/22 04:00 10/21/22 23:54 10/21/22 23:54 10/21/22 23:54 10/19/22 12:00 Period Temp Pulse Resp BP Sys/Ward Pulse Ox O2 Del Method O2 Flow Rate Last 24 Hr 97.3 F-98.2 F 70-83 16-20 120-156/78-86 93-95 Room Air-Room Air Intake and Output 10/21/22 10/22/22 10/22/22 19:59 03:59 11:59 Intake Total 500 740 480 Output Total 250 500 Balance 500 490 -20 Weight 231 lb 230 lb Intake & Output: Intake & Output 10/21/22 10/22/22 10/22/22 19:59 03:59 11:59 Intake Total 500 740 480 Output Total 250 500 Balance 500 490 -20 Weight 231 lb 230 lb Intake: IV 500 500 Vancomycin 1,750 mg In Sodium 500 500 Chloride 0.9% 500 ml @ 250 mls/ hr IV Q12H [facility] Rx#:[id number] Oral 240 480 Output: Void Amount 250 500 Other: Meal Lunch Percent of Meal Consumed 100% Feeding Ability Independent Urine Appearance Clear Clear Urine Color Dark Yellow Dark Yellow Urine Odor Normal Normal Normal Additional findings Additional findings: alert and appropriate afebrile right knee: small 1-2mm area inferior aspect of dressing with strikethrough. effusion stable, swelling in leg minimal. foot warm well perfused. OBJ DATA Labs 10/20/22 09:19 10/20/22 09:19 Labs: Abnormal Lab Results 10/20/22 10/20/22 09:19 09:19 WBC 11.9 H RBC 3.80 L Hgb 11.1 L Hct 33.6 L RDW 14.6 H Plt Count 825 H MPV 8.7 L Neut % (Auto) 82.9 H Lymph % (Auto) 9.7 L Lymph # (Auto) 1.16 L Absolute Neutrophils 9.87 H Chloride 95 L Creatinine 0.6 L Glucose 157 H Globulin 4.8 H Albumin/Globulin Ratio 0.7 L Meds: Medications Acetaminophen (Acetaminophen 500 Mg Tablet) 1,000 mg PO TID [facility]; Protocol Last Admin: 10/21/22 20:30 Dose: 1,000 mg Albuterol Sulfate (Albuterol Sulfate 60 Puff Inhaler) 2 puff IH Q4HP PRN PRN Reason: for dyspnea Albuterol/Ipratropium (Ipratropium/Albuterol 3 Ml Ampul.Neb) 3 ml NEB Q6HP [facility] Aspirin (Aspirin 81 Mg Tab.Chew) 81 mg CHEWED BID [facility] Last Admin: 10/21/22 20:30 Dose: 81 mg Bisacodyl (Bisacodyl 10 Mg Supp.Rect) 10 mg FL Q2-3DAYS PRN PRN Reason: Constipation Diphenhydramine HCl (Diphenhydramine 25 Mg Capsule) 25 mg PO HSP PRN PRN Reason: Insomnia Last Admin: 10/21/22 21:16 Dose: 25 mg Docusate Sodium (Docusate Sodium 100 Mg Capsule) 100 mg PO BID [facility] Last Admin: 10/21/22 20:30 Dose: 100 mg Duloxetine HCl (Duloxetine 30 Mg Capsule) 30 mg PO QDAY [facility] Last Admin: 10/21/22 09:00 Dose: 30 mg Gabapentin (Gabapentin 300 Mg Capsule) 300 mg PO [facility] Last Admin: 10/21/22 20:30 Dose: 300 mg Heparin Sodium (Porcine) (Heparin Flush 10 Units/Ml 5 Ml Syringe) 2 ml IV Q12 [facility] Last Admin: 10/21/22 20:31 Dose: Not Given Hydrochlorothiazide (Hydrochlorothiazide 12.5 Mg Capsule) 12.5 mg PO DAILY [facility] Last Admin: 10/21/22 09:00 Dose: 12.5 mg Hydroxyzine HCl (Hydroxyzine 25 Mg Tablet) 50 mg PO HS [facility] Last Admin: 10/21/22 20:30 Dose: 50 mg Rifampin 600 mg/ Sodium (Chloride) 100 mls @ 100 mls/hr IV Q24H [facility]; Protocol Last Infusion: 10/21/22 11:55 Dose: Infused Vancomycin HCl 1,750 mg/ (Sodium Chloride) 500 mls @ 250 mls/hr IV Q12H [facility] Last Infusion: 10/21/22 23:10 Dose: Infused Lisinopril (Lisinopril 20 Mg Tablet) 20 mg PO DAILY [facility] Last Admin: 10/21/22 09:00 Dose: 20 mg Magnesium Hydroxide (Magnesium Hydroxide 30 Ml Oral.Susp) 30 ml PO BIDP PRN PRN Reason: Constipation Melatonin (Melatonin 3 Mg Tablet) 3 mg PO QPM@1900 [facility] Last Admin: 10/21/22 20:30 Dose: 3 mg Methocarbamol (Methocarbamol 750 Mg Tablet) 750 mg PO TIDP PRN PRN Reason: Muscle Spasm Last Admin: 10/22/22 05:28 Dose: 750 mg Olanzapine (Olanzapine 5 Mg Tablet) 5 mg PO TIDP PRN PRN Reason: agitation Last Admin: 10/21/22 21:16 Dose: 5 mg Omeprazole (Omeprazole 20 Mg Capsule) 20 mg PO QAMAC [facility] Last Admin: 10/21/22 07:29 Dose: 20 mg Ondansetron HCl (Ondansetron 4 Mg/2 Ml Vial) 4 mg IV Q4HP PRN; Protocol PRN Reason: Nausea And Vomiting Last Admin: 10/13/22 21:12 Dose: 4 mg Oxycodone HCl (Oxycodone Hcl 5 Mg Tablet) 10 - 20 mg PO Q4HP PRN; Protocol PRN Reason: Pain Last Admin: 10/22/22 02:29 Dose: 20 mg Polyethylene Glycol (Polyethylene Glycol 3350 17 Gm Packet) 17 gm PO DAILYP PRN PRN Reason: Constipation Senna (Sennosides 1 Tablet) 2 tab PO HS [facility] Last Admin: 10/21/22 20:30 Dose: 2 tab Sodium Biphosphate/Sodium Phosphate (Fleets Adult Enema) 1 dose FL Q3-4DAYS PRN PRN Reason: Constipation Sodium Chloride (0.9 % Sodium Chloride 10 Ml Syringe) 10 ml IV Q8 [facility] Last Admin: 10/22/22 05:38 Dose: Not Given Sodium Chloride (0.9 % Sodium Chloride 10 Ml Syringe) 10 ml IV Q12 [facility] Last Admin: 10/21/22 20:31 Dose: 10 ml Sodium Chloride (0.9 % Sodium Chloride 10 Ml Syringe) 10 ml IV UD PRN PRN Reason: FLUSH Throat Lozenges (Benzocaine/Menthol 1 Lozenge) 1 lozenge PO PRN PRN PRN Reason: Sore Throat Vancomycin HCl (Vancomycin Per Pharmacy) 1 order IV UD [facility]; Protocol A/P Assessment and plan (1) Infection of prosthetic right knee joint: Status: Acute (2) Postoperative infection of knee: Assessment and plan: POD12 s/p I&D total knee arthroplasty infection, poly exchange, antibiotic bead placement -- 50% weight bearing, hinged knee brace with ambulation -- blood culture negative, staph aureus with sensitivity with positive for MRSA --------Improved IV access . --------Vancomycin 1750mg. Vanc trough this AM Goal is 15-20. Continue rifampin -- Off CIWI for past 8 days. No etoh last 5 1/2 days. Doing well -- Continue oral pain meds, anti anxiety meds, added neurotin at night -- dispo: Ideally needs SNF for IV abx-Prefer total of 6 weeks IV antibotics. Discussed with case management/Hospitalist- facility that would likely accept but only 2 weeks which is less than ideal as would want total of 6 weeks IV abx which would require about a 30 day stay at facility. Facility that previously required patient to be off of CIWI and no risk of withdrawl might be an option. Will revisit Saturday as patient is doing well overall with improved attitude. If not facility would accept patient, would default to d/c home with oral antibiotics. Discussed with him that this is not ideal and if infection is not cleared would not offer a 2 stage revision as this requires a post op IV antibiotics which if he does not have the ability to do so now likely would not be able to do it then so default would suppressive antibiotics but more likely above knee amputation. Status: Acute Time Spent With Patient Time: Total time spent is greater than 50% in coordination of care (as documented) at patient's floor/unit and/or counseling patient:
[2022-10-22] MEDS: OMEPRAZOLE 20 MG CAPSULE PO SCH (06:38)
[2022-10-22] MEDS: ACETAMINOPHEN 500 MG TABLET PO SCH ×3 (08:50→20:40)
[2022-10-22] MEDS: DULoxetine 30 MG CAPSULE PO SCH (08:50)
[2022-10-22] MEDS: HYDROCHLOROTHIAZIDE 12.5 MG CAPSULE PO SCH (08:50)
[2022-10-22] MEDS: ASPIRIN 81 MG TAB.CHEW CHEWED SCH ×2 (08:50→20:41)
[2022-10-22] MEDS: LISINOPRIL 20 MG TABLET PO SCH (08:51)
[2022-10-22] MEDS: DOCUSATE SODIUM 100 MG CAPSULE PO SCH ×2 (08:51→20:41)
[2022-10-22 09:03] LABS: ALT/SGPT 14 U/L (<40); AST/SGOT 12 U/L (<40); Albumin 3.4 gm/dL (3.2-5.2); Albumin/Globulin Ratio 0.7 (1.0-2.3); Alkaline Phosphatase 115 U/L (39-117); Bilirubin,Total 0.2 mg/dL (0.1-1.0); Blood Urea Nitrogen 12 mg/dL (6-20); Calcium 9.6 mg/dL (8.6-10.4); Carbon Dioxide 24 mmol/L (22-30); Chloride 97 mmol/L (96-108); Globulin 4.9 gm/dL (2.2-3.7); Glomerular Filtration Rate 108; Glucose 147 mg/dL (70-105)
[2022-10-22 09:11] LABS: Basophils # (Auto) 0.04 K/mcL (0.00-0.30); Basophils % (Auto) 0.4 % (0.0-2.0); Eosinophils # (Auto) 0.19 K/mcL (0.00-0.70); Eosinophils % (Auto) 1.7 % (0.0-7.0); Hematocrit 35.1 % (40.1-51.0); Hemoglobin 11.2 g/dL (13.7-17.5); Lymphocytes # (Auto) 1.36 K/mcL (1.50-4.80); Mean Cell Volume 90.5 fL (80.0-100.0); Mean Corpuscular HGB Conc 31.9 g/dL (31.0-36.0); Mean Platelet Volume 8.7 fL (8.8-12.5); Monocytes # (Auto) 0.64 K/mcL (0.10-0.90); Monocytes % (Auto) 5.6 % (1.0-12.0); Neutrophils % (Auto) 79.7 % (38.0-78.0); Platelet Count 907 K/mcL (140-440); RBC 3.88 M/mcL (4.63-6.08); Red Cell Distribution Width 14.7 % (11.5-14.5); WBC 11.4 K/mcL (4.5-11.0)
[2022-10-22] MEDS: VANCOMYCIN 2,000 MG in 0.9 % SODIUM CHLORIDE 500 ML IV SCH ×2 (10:38→21:22)
[2022-10-22] MEDS: RIFAMPIN 600 MG in 0.9 % SODIUM CHLORIDE 100 ML IV SCH (10:39)
[2022-10-22] MEDS: VANCOMYCIN 1,750 MG in 0.9 % SODIUM CHLORIDE 500 ML IV SCH (10:42)
[2022-10-22] MEDS ORDERED: morphine 2 MG/ML VIAL IV PRN (12:21)
[2022-10-22] MEDS ORDERED: 0.9 % SODIUM CHLORIDE 10 ML SYRINGE IV PRN (12:23)
--- NOTE | 2022-10-22 12:23 | Internal Med Progress Note ---
SUBJECTIVE Subjective Patient information: Note initiated : 10/22/22 at 12:21 pm Service Date, if different from initiated Date: [] Patient: Leonides Jenkins 52 y/o M admitted on 10/10/22 for increased knee pain. Chief Complaint: [] Principal diagnosis: Septic Rt knee s/p irrigation & debridement Interval history: 52-year-old obese male with a past medical history significant for hypertension, anxiety/depression, and alcohol abuse who presented to the hospital for elective surgery. The patient underwent right total knee arthroplasty, irrigation, and debridement with polyliner exchange and antibiotic bead placement. Postoperatively, after anesthesia induction, he briefly went into PEA arrest requiring cardiopulmonary resuscitation with ROSC. He was extubated overnight and this morning he was alert, oriented x3. Family were present at the bedside. The patient denies chest pain, shortness of breath or palpitati ons. There were concerns for mild alcohol withdrawal as he was placed on CIWA protocol and did receive Ativan. The hospitalist service was asked to consult to help medically manage the patient. 10/13: The patient was moved out the ICU to [facility]. He remains quite somnolent as he needs IV Ativan for CIWA protocol. He is receiving beer as well. 10/14: Had a lengthy discussion with RN, and with foster care case manager regarding the patient's behavior. He did sign the AMA form however was quite confused. He was verbally abusive, shouting and yelling yesterday. The patient receives oxycodone, alcohol, and benzodiazepine subsequently by staffing and then becomes quite sedated and somnolent. This morning he was difficult to wake up. I recommended stopping or decreasing IV Ativan. 10/15 Patient states poor sleep but otherwise no new complaints other than headache. Leukocytosis mildly improved today. Anemia stable. Hyponatremia improved. 10/16 Patient complains of poor sleep. Complains of headaches and had some nausea this morning. Continue wound care and placement options. Continue IV an tibiotics 10/17 Patient slept great last night he says. Patient cooperative with cares. No acute events overnight 10/[address] unless he is off alcohol. Started holding alcohol yeste rday and will monitor him closely if he does not have any symptoms of withdrawal and then plan is to keep him off alcohol so he can go to a rehab with PICC line. Patient seems to be in better spirits today. No overnight event or new complaints other than he had a poor sleepAnd complains of headache at times. Multiple discussions between surgeon in fact infectious disease regarding plan. Ideally we would be IV vancomycin at nursing facility for the duration of the treatment. If the facility cannot take the patient for the entire course which could consider dalbavancin for the remainder of the treatment. As far as oral Zyvox this will could be a consideration after at least 3 to 4 weeks of IV antibiotics. 10/19 Patient seems to be feeling well today. No overnight event or new complaints. Patient cooperative. No issues with withdrawal at this time. Monitoring closely. 10/20 Patient states he is feeling pretty good today. No overnight event or new complaints. Did lose IV site yesterday but a new one placed. Still trying to find placement for him for optimal treatment. No signs of alcohol withdrawal at this point. Continue to monitor closely 10/21 Poor sleep. No other complaints. Patient seems to be doing well off alcohol. 10/22: Afebrile overnight. WBC 11.4. Patient is still coming of 10 out of 10 right knee pain. Patient agrees to go to SNF to finish 4 additional weeks of IV antibiotics. Continue IV antibiotics with vancomycin and rifampin for the time being. We will work with foster care case manager for SNF placement. PICC line insertion for IV antibiotics. Constitutional Vitals: Vital Signs Temp Pulse Resp BP Pulse Ox O2 Del Method O2 Flow Rate 36.8 C 90 20 146/80 96 Room Air 0 10/22/22 08:00 10/22/22 08:00 10/22/22 08:00 10/22/22 08:00 10/22/22 08:00 10/22/22 08:00 10/19/22 12:00 Period Temp Pulse Resp BP Sys/Ward Pulse Ox O2 Del Method O2 Flow Rate Last 24 Hr 36.3 C-36.8 C 70-90 16-20 120-146/78-86 93-96 Room Air-Room Air Intake and Output 10/22/22 10/22/22 10/22/22 03:59 11:59 19:59 Intake Total 740 1120 Output Total 250 500 Balance 490 620 Weight 104.326 kg Intake & Output: Intake & Output 04/24/23 04/24/23 04/24/23 03:59 11:59 19:59 Intake Total 740 1120 Output Total 250 500 Balance 490 620 Weight 104.326 kg Intake: IV 500 Vancomycin 1,750 mg In Sodium 500 Chloride 0.9% 500 ml @ 250 mls/ hr IV Q12H [facility] Rx#:[id number] Oral 240 1120 Output: Void Amount 250 500 Other: Meal Breakfast Percent of Meal Consumed 100% Feeding Ability Independent Urine Appearance Clear Clear Urine Color Dark Yellow Dark Yellow Urine Odor Normal Normal Head Head exam: Present atraumatic and normal inspection Eye Eye exam: Present normal appearance ENT ENT exam: Present mucous membranes moist, normal exam and normal external ear exam Neck Neck exam: Present normal inspection Respiratory Respiratory exam: Present normal respiratory exam Cardiovascular Cardiovascular exam: Present normal rate and rhythm GI/Abdominal GI/Abdominal exam: Present normal bowel sounds Extremities Exam Extremities exam: Present tenderness; Absent full ROM or normal inspection Additional comments: Right knee covered by surgical dressing Back Exam Back exam: Present normal inspection Neurological Exam Neurological exam: Present alert and oriented X3 Skin Skin exam: Present intact and warm OBJ DATA Labs 10/22/22 08:04 10/22/22 08:05 Labs: Abnormal Lab Results 10/22/22 10/22/22 10/20/22 08:05 08:04 09:19 WBC 11.4 H RBC 3.88 L Hgb 11.2 L Hct 35.1 L RDW 14.7 H Plt Count 907 H* MPV 8.7 L Immature Gran % (Auto) 0.6 H Neut % (Auto) 79.7 H Lymph % (Auto) 12.0 L Lymph # (Auto) 1.36 L Immature Gran # 0.07 H Absolute Neutrophils 9.07 H Chloride 95 L Creatinine 0.6 L Glucose 147 H 157 H C-Reactive Protein 8.60 H Globulin 4.9 H 4.8 H Albumin/Globulin Ratio 0.7 L 0.7 L 10/20/22 09:19 WBC 11.9 H RBC 3.80 L Hgb 11.1 L Hct 33.6 L RDW 14.6 H Plt Count 825 H MPV 8.7 L Immature Gran % (Auto) Neut % (Auto) 82.9 H Lymph % (Auto) 9.7 L Lymph # (Auto) 1.16 L Immature Gran # Absolute Neutrophils 9.87 H Chloride Creatinine Glucose C-Reactive Protein Globulin Albumin/Globulin Ratio Meds: Medications Acetaminophen (Acetaminophen 500 Mg Tablet) 1,000 mg PO TID [facility]; Protocol Last Admin: 10/22/22 08:50 Dose: 1,000 mg Albuterol Sulfate (Albuterol Sulfate 60 Puff Inhaler) 2 puff IH Q4HP PRN PRN Reason: for dyspnea Albuterol/Ipratropium (Ipratropium/Albuterol 3 Ml Ampul.Neb) 3 ml NEB Q6HP [facility] Aspirin (Aspirin 81 Mg Tab.Chew) 81 mg CHEWED BID [facility] Last Admin: 10/22/22 08:50 Dose: 81 mg Bisacodyl (Bisacodyl 10 Mg Supp.Rect) 10 mg [place] Q2-3DAYS PRN PRN Reason: Constipation Diphenhydramine HCl (Diphenhydramine 25 Mg Capsule) 25 mg PO HSP PRN PRN Reason: Insomnia Last Admin: 10/21/22 21:16 Dose: 25 mg Docusate Sodium (Docusate Sodium 100 Mg Capsule) 100 mg PO BID [facility] Last Admin: 10/22/22 08:51 Dose: 100 mg Duloxetine HCl (Duloxetine 30 Mg Capsule) 30 mg PO QDAY [facility] Last Admin: 10/22/22 08:50 Dose: 30 mg Gabapentin (Gabapentin 300 Mg Capsule) 300 mg PO HS [facility] Last Admin: 10/21/22 20:30 Dose: 300 mg Heparin Sodium (Porcine) (Heparin Flush 10 Units/Ml 5 Ml Syringe) 2 ml IV Q12 [facility] Last Admin: 10/22/22 07:00 Dose: Not Given Hydrochlorothiazide (Hydrochlorothiazide 12.5 Mg Capsule) 12.5 mg PO DAILY [facility] Last Admin: 10/22/22 08:50 Dose: 12.5 mg Hydroxyzine HCl (Hydroxyzine 25 Mg Tablet) 50 mg PO HS [facility] Last Admin: 10/21/22 20:30 Dose: 50 mg Rifampin 600 mg/ Sodium (Chloride) 100 mls @ 100 mls/hr IV Q24H [facility]; Protocol Last Admin: 10/22/22 10:39 Dose: 100 mls/hr Vancomycin HCl 2,000 mg/ (Sodium Chloride) 500 mls @ 250 mls/hr IV Q12H [facility] Last Admin: 10/22/22 10:38 Dose: 250 mls/hr Lisinopril (Lisinopril 20 Mg Tablet) 20 mg PO DAILY [facility] Last Admin: 10/22/22 08:51 Dose: 20 mg Magnesium Hydroxide (Magnesium Hydroxide 30 Ml Oral.Susp) 30 ml PO BIDP PRN PRN Reason: Constipation Melatonin (Melatonin 3 Mg Tablet) 3 mg PO QPM@1900 [facility] Last Admin: 10/21/22 20:30 Dose: 3 mg Methocarbamol (Methocarbamol 750 Mg Tablet) 750 mg PO TIDP PRN PRN Reason: Muscle Spasm Last Admin: 10/22/22 05:28 Dose: 750 mg Olanzapine (Olanzapine 5 Mg Tablet) 5 mg PO TIDP PRN PRN Reason: agitation Last Admin: 10/21/22 21:16 Dose: 5 mg Omeprazole (Omeprazole 20 Mg Capsule) 20 mg PO QAMAC [facility] Last Admin: 10/22/22 06:38 Dose: 20 mg Ondansetron HCl (Ondansetron 4 Mg/2 Ml Vial) 4 mg IV Q4HP PRN; Protocol PRN Reason: Nausea And Vomiting Last Admin: 10/13/22 21:12 Dose: 4 mg Oxycodone HCl (Oxycodone Hcl 5 Mg Tablet) 10 - 20 mg PO Q4HP PRN; Protocol PRN Reason: Pain Last Admin: 10/22/22 10:36 Dose: 20 mg Polyethylene Glycol (Polyethylene Glycol 3350 17 Gm Packet) 17 gm PO DAILYP PRN PRN Reason: Constipation Senna (Sennosides 1 Tablet) 2 tab PO HS [facility] Last Admin: 10/21/22 20:30 Dose: 2 tab Sodium Biphosphate/Sodium Phosphate (Fleets Adult Enema) 1 dose OK Q3-4DAYS PRN PRN Reason: Constipation Sodium Chloride (0.9 % Sodium Chloride 10 Ml Syringe) 10 ml IV Q8 [facility] Last Admin: 10/22/22 05:38 Dose: Not Given Sodium Chloride (0.9 % Sodium Chloride 10 Ml Syringe) 10 ml IV Q12 [facility] Last Admin: 10/22/22 10:38 Dose: 10 ml Sodium Chloride (0.9 % Sodium Chloride 10 Ml Syringe) 10 ml IV UD PRN PRN Reason: FLUSH Throat Lozenges (Benzocaine/Menthol 1 Lozenge) 1 lozenge PO PRN PRN PRN Reason: Sore Throat Vancomycin HCl (Vancomycin Per Pharmacy) 1 order IV UD [facility]; Protocol A/P Assessment and plan (1) Methamphetamine abuse: Status: Acute (2) Infection of prosthetic right knee joint: Status: Acute (3) Alcohol withdrawal: Status: Acute (4) Septic arthritis of knee, right: Status: Acute (5) Anemia, normocytic normochromic: Status: Acute Narrative A/P Narrative: Assessment and Plans: 1. Right septic prosthetic knee: Wound culture: MRSA Dr. Rivera is managing Patient agrees to go to SNF for 4 additional week of IV antibiotics, will work with foster care case manager for placement PICC insertion cbc w/ auto diff in the morning to trend WBC Vancomycin Rifampin Robaxin Oxycodone Morphine IV PRN breakthrough pain 2. Anemia, normocytic normochromic: cbc w/ auto diff in the morning to trend H/H 3. Alcohol withdrawal: Stable, CIWA protocol discontinued, no more clinical signs of continued withdrawal 4. Methamphetamine abuse: Continue to monitor GI ppx: Prilosec DVT ppx: Aspirin Code status: Full Prognosis: guarded Disposition: inpatient med surg; SNF Time Spent With Patient Time: Total time spent is greater than 50% in coordination of care (as documented) at patient's floor/unit and/or counseling patient: Subsequent: Total time with patient: 35 - 49 minutes QUALITY VTE Deep Vein Thrombosis/Pulmonary Embolism Present on Admission: No
[2022-10-22] MEDS: MELATONIN 3 MG TABLET PO SCH (19:55)
[2022-10-22] MEDS: SENNOSIDES 1 TABLET PO SCH (20:40)
[2022-10-22] MEDS: hydrOXYzine 25 MG TABLET PO SCH (20:40)
[2022-10-22] MEDS: GABAPENTIN 300 MG CAPSULE PO SCH (20:41)
[2022-10-23] MEDS: METHOCARBAMOL 750 MG TABLET PO PRN ×2 (03:30→19:10)
[2022-10-23] MEDS: oxyCODONE IR 5 MG TABLET PO PRN ×4 (05:23→20:25)
[2022-10-23] MEDS: 0.9 % SODIUM CHLORIDE 10 ML SYRINGE IV SCH ×7 (05:24→20:27)
[2022-10-23 06:20] LABS: Basophils # (Auto) 0.06 K/mcL (0.00-0.30); Basophils % (Auto) 0.6 % (0.0-2.0); Eosinophils # (Auto) 0.22 K/mcL (0.00-0.70); Eosinophils % (Auto) 2.1 % (0.0-7.0); Hematocrit 33.6 % (40.1-51.0); Hemoglobin 10.7 g/dL (13.7-17.5); Lymphocytes # (Auto) 1.41 K/mcL (1.50-4.80); Lymphocytes % (Auto) 13.3 % (15.5-49.0); Mean Cell Volume 90.1 fL (80.0-100.0); Mean Corpuscular HGB Conc 31.8 g/dL (31.0-36.0); Mean Platelet Volume 8.6 fL (8.8-12.5); Monocytes # (Auto) 0.62 K/mcL (0.10-0.90); Monocytes % (Auto) 5.8 % (1.0-12.0); Neutrophils % (Auto) 77.7 % (38.0-78.0); Platelet Count 850 K/mcL (140-440); RBC 3.73 M/mcL (4.63-6.08); Red Cell Distribution Width 14.4 % (11.5-14.5); WBC 10.6 K/mcL (4.5-11.0)
--- NOTE | 2022-10-23 06:33 | Orthopedic Progress Note ---
SUBJECTIVE Subjective Patient information: Note initiated : 10/23/22 at 6:28 am Service Date, if different from initiated Date: [] Patient: Leonides Jenkins 52 y/o M admitted on 10/10/22 for increased knee pain. Chief Complaint: [No issues overnight. ] Principal diagnosis: Septic Rt knee s/p irrigation & debridement Constitutional Vitals: Vital Signs Temp Pulse Resp BP Pulse Ox O2 Del Method O2 Flow Rate 98.4 F 82 18 126/70 94 Room Air 0 10/23/22 04:00 10/23/22 04:00 10/23/22 04:00 10/23/22 04:00 10/23/22 04:00 10/23/22 04:00 10/19/22 12:00 Period Temp Pulse Resp BP Sys/Ward Pulse Ox O2 Del Method O2 Flow Rate Last 24 Hr 98.3 F-98.6 F 76-93 16-20 119-146/70-82 92-96 Room Air-Room Air Intake and Output 10/22/22 10/23/22 10/23/22 19:59 03:59 11:59 Intake Total 840 500 Output Total 400 750 Balance 840 100 -750 Weight 229 lb 2 oz Intake & Output: Intake & Output 10/22/22 10/23/22 10/23/22 19:59 03:59 11:59 Intake Total 840 500 Output Total 400 750 Balance 840 100 -750 Weight 229 lb 2 oz Intake: IV 600 500 Rifampin 600 mg In Sodium 100 Chloride 0.9% 100 ml @ 100 mls/ hr IV Q24H [facility] Rx#:[id number] Vancomycin 2,000 mg In Sodium 500 500 Chloride 0.9% 500 ml @ 250 mls/ hr IV Q12H [facility] Rx#:[id number] Oral 240 Output: Void Amount 400 750 Other: Meal Dinner Percent of Meal Consumed 100% Feeding Ability Independent Urine Appearance Clear Clear Clear Urine Color Yellow Yellow Yellow # Voids 3 Additional findings Additional findings: alert and appropriate right knee: dressing removed. minimal drainage which is from the bottom of inicision only. warmth has resolved. effusion as expected. knee extension 5-8 degrees flexion contracture. passive can get to near neutral. OBJ DATA Labs 10/23/22 05:30 10/22/22 08:05 Labs: Abnormal Lab Results 04/10/22/22 10/22/22 05:30 12:12 08:05 WBC RBC 3.73 L Hgb 10.7 L Hct 33.6 L RDW Plt Count 850 H 883 H MPV 8.6 L Immature Gran % (Auto) Neut % (Auto) Lymph % (Auto) 13.3 L Lymph # (Auto) 1.41 L Immature Gran # Absolute Neutrophils 8.27 H Chloride Creatinine Glucose 147 H C-Reactive Protein 8.60 H Globulin 4.9 H Albumin/Globulin Ratio 0.7 L 10/22/22 10/20/22 10/20/22 08:04 09:19 09:19 WBC 11.4 H 11.9 H RBC 3.88 L 3.80 L Hgb 11.2 L 11.1 L Hct 35.1 L 33.6 L RDW 14.7 H 14.6 H Plt Count 907 H* 825 H MPV 8.7 L 8.7 L Immature Gran % (Auto) 0.6 H Neut % (Auto) 79.7 H 82.9 H Lymph % (Auto) 12.0 L 9.7 L Lymph # (Auto) 1.36 L 1.16 L Immature Gran # 0.07 H Absolute Neutrophils 9.07 H 9.87 H Chloride 95 L Creatinine 0.6 L Glucose 157 H C-Reactive Protein Globulin 4.8 H Albumin/Globulin Ratio 0.7 L Meds: Medications Acetaminophen (Acetaminophen 500 Mg Tablet) 1,000 mg PO TID [facility]; Protocol Last Admin: 10/22/22 20:40 Dose: 1,000 mg Albuterol Sulfate (Albuterol Sulfate 60 Puff Inhaler) 2 puff IH Q4HP PRN PRN Reason: for dyspnea Albuterol/Ipratropium (Ipratropium/Albuterol 3 Ml Ampul.Neb) 3 ml NEB Q6HP [facility] Aspirin (Aspirin 81 Mg Tab.Chew) 81 mg CHEWED BID [facility] Last Admin: 10/22/22 20:41 Dose: 81 mg Bisacodyl (Bisacodyl 10 Mg Supp.Rect) 10 mg PA Q2-3DAYS PRN PRN Reason: Constipation Diphenhydramine HCl (Diphenhydramine 25 Mg Capsule) 25 mg PO HSP PRN PRN Reason: Insomnia Last Admin: 10/21/22 21:16 Dose: 25 mg Docusate Sodium (Docusate Sodium 100 Mg Capsule) 100 mg PO BID [facility] Last Admin: 10/22/22 20:41 Dose: 100 mg Duloxetine HCl (Duloxetine 30 Mg Capsule) 30 mg PO QDAY [facility] Last Admin: 10/22/22 08:50 Dose: 30 mg Gabapentin (Gabapentin 300 Mg Capsule) 300 mg PO HS [facility] Last Admin: 10/22/22 20:41 Dose: 300 mg Heparin Sodium (Porcine) (Heparin Flush 10 Units/Ml 5 Ml Syringe) 2 ml IV Q12 [facility] Last Admin: 10/22/22 20:41 Dose: Not Given Heparin Sodium (Porcine) (Heparin Flush 10 Units/Ml 5 Ml Syringe) 2 ml IV Q12 [facility] Last Admin: 10/22/22 20:42 Dose: Not Given Hydrochlorothiazide (Hydrochlorothiazide 12.5 Mg Capsule) 12.5 mg PO DAILY [facility] Last Admin: 10/22/22 08:50 Dose: 12.5 mg Hydroxyzine HCl (Hydroxyzine 25 Mg Tablet) 50 mg PO HS [facility] Last Admin: 10/22/22 20:40 Dose: 50 mg Rifampin 600 mg/ Sodium (Chloride) 100 mls @ 100 mls/hr IV Q24H [facility]; Protocol Last Infusion: 10/22/22 14:18 Dose: Infused Vancomycin HCl 2,000 mg/ (Sodium Chloride) 500 mls @ 250 mls/hr IV Q12H [facility] Last Infusion: 10/22/22 23:25 Dose: Infused Lisinopril (Lisinopril 20 Mg Tablet) 20 mg PO DAILY [facility] Last Admin: 10/22/22 08:51 Dose: 20 mg Magnesium Hydroxide (Magnesium Hydroxide 30 Ml Oral.Susp) 30 ml PO BIDP PRN PRN Reason: Constipation Melatonin (Melatonin 3 Mg Tablet) 3 mg PO QPM@1900 [facility] Last Admin: 10/22/22 19:55 Dose: 3 mg Methocarbamol (Methocarbamol 750 Mg Tablet) 750 mg PO TIDP PRN PRN Reason: Muscle Spasm Last Admin: 10/23/22 03:30 Dose: 750 mg Morphine Sulfate (Morphine 2 Mg/Ml Vial) 2 mg IV Q4HP PRN; Protocol PRN Reason: Per Pain Protocol Olanzapine (Olanzapine 5 Mg Tablet) 5 mg PO TIDP PRN PRN Reason: agitation Last Admin: 10/21/22 21:16 Dose: 5 mg Omeprazole (Omeprazole 20 Mg Capsule) 20 mg PO QAMAC [facility] Last Admin: 10/22/22 06:38 Dose: 20 mg Ondansetron HCl (Ondansetron 4 Mg/2 Ml Vial) 4 mg IV Q4HP PRN; Protocol PRN Reason: Nausea And Vomiting Last Admin: 10/13/22 21:12 Dose: 4 mg Oxycodone HCl (Oxycodone Hcl 5 Mg Tablet) 10 - 20 mg PO Q4HP PRN; Protocol PRN Reason: Pain Last Admin: 10/23/22 05:23 Dose: 20 mg Polyethylene Glycol (Polyethylene Glycol 3350 17 Gm Packet) 17 gm PO DAILYP PRN PRN Reason: Constipation Senna (Sennosides 1 Tablet) 2 tab PO HS [facility] Last Admin: 10/22/22 20:40 Dose: 2 tab Sodium Biphosphate/Sodium Phosphate (Fleets Adult Enema) 1 dose PA Q3-4DAYS PRN PRN Reason: Constipation Sodium Chloride (0.9 % Sodium Chloride 10 Ml Syringe) 10 ml IV Q8 [facility] Last Admin: 10/23/22 05:24 Dose: 10 ml Sodium Chloride (0.9 % Sodium Chloride 10 Ml Syringe) 10 ml IV Q12 [facility] Last Admin: 10/22/22 21:23 Dose: Not Given Sodium Chloride (0.9 % Sodium Chloride 10 Ml Syringe) 10 ml IV UD PRN PRN Reason: FLUSH Sodium Chloride (0.9 % Sodium Chloride 10 Ml Syringe) 10 ml IV Q12 [facility] Last Admin: 10/22/22 21:23 Dose: Not Given Sodium Chloride (0.9 % Sodium Chloride 10 Ml Syringe) 10 ml IV UD PRN PRN Reason: FLUSH Throat Lozenges (Benzocaine/Menthol 1 Lozenge) 1 lozenge PO PRN PRN PRN Reason: Sore Throat Vancomycin HCl (Vancomycin Per Pharmacy) 1 order IV UD [facility]; Protocol A/P Assessment and plan (1) Infection of prosthetic right knee joint: Status: Acute (2) Postoperative infection of knee: Assessment and plan: POD13 s/p I&D total knee arthroplasty infection, poly exchange, antibiotic bead placement -- 50% weight bearing, hinged knee brace with ambulation -- blood culture negative, staph aureus with sensitivity with positive for MRSA --------Improved IV access . --------Vancomycin 2000mg. Vanc trough yesterday was just over 13 Goal is 15- 20. Continue rifampin -- Off CIWI for past 9 days. No etoh last 6 1/2 days. Doing well -- Continue oral pain meds, anti anxiety meds, added neurotin at night -- dispo: Ideally needs SNF for IV abx-Prefer total of 6 weeks IV antibotics. Running out of options for SNF. No facility is willing to accept him. I pending as of now that I can see from Case manangement note yesterday. If no faciltiy willing, will have to d/c home with oral antibiotics which is less than ideal. will need outpt Infectious disease. Discussed with him that this is not ideal and if infection is not cleared would not offer a 2 stage revision as this requires a post op IV antibiotics which if he does not have the ability to do so now likely would not be able to do it then so default would suppressive antibiotics but more likely above knee amputation. Status: Acute Time Spent With Patient Time: Total time spent is greater than 50% in coordination of care (as documented) at patient's floor/unit and/or counseling patient:
[2022-10-23 06:38] LABS: ALT/SGPT 13 U/L (<40); AST/SGOT 11 U/L (<40); Albumin 3.1 gm/dL (3.2-5.2); Albumin/Globulin Ratio 0.6 (1.0-2.3); Alkaline Phosphatase 120 U/L (39-117); Bilirubin,Total 0.2 mg/dL (0.1-1.0); Blood Urea Nitrogen 12 mg/dL (6-20); Calcium 9.4 mg/dL (8.6-10.4); Carbon Dioxide 25 mmol/L (22-30); Chloride 97 mmol/L (96-108); Globulin 4.9 gm/dL (2.2-3.7); Glomerular Filtration Rate 116; Glucose 110 mg/dL (70-105)
[2022-10-23] MEDS: ACETAMINOPHEN 500 MG TABLET PO SCH ×3 (08:36→20:23)
[2022-10-23] MEDS: DULoxetine 30 MG CAPSULE PO SCH (08:37)
[2022-10-23] MEDS: OMEPRAZOLE 20 MG CAPSULE PO SCH (08:37)
[2022-10-23] MEDS: DOCUSATE SODIUM 100 MG CAPSULE PO SCH ×2 (08:38→20:24)
[2022-10-23] MEDS: LISINOPRIL 20 MG TABLET PO SCH (08:38)
[2022-10-23] MEDS: ASPIRIN 81 MG TAB.CHEW CHEWED SCH ×2 (08:38→20:24)
[2022-10-23] MEDS: HYDROCHLOROTHIAZIDE 12.5 MG CAPSULE PO SCH (08:38)
[2022-10-23] MEDS: VANCOMYCIN 2,000 MG in 0.9 % SODIUM CHLORIDE 500 ML IV SCH (09:53)
[2022-10-23] MEDS: RIFAMPIN 600 MG in 0.9 % SODIUM CHLORIDE 100 ML IV SCH (09:53)
--- NOTE | 2022-10-23 11:45 | Internal Med Progress Note ---
SUBJECTIVE Subjective Patient information: Note initiated : 10/23/22 at 11:42 am Service Date, if different from initiated Date: [] Patient: Leonides Jenkins 52 y/o M admitted on 10/10/22 for increased knee pain. Chief Complaint: [] Principal diagnosis: Septic Rt knee s/p irrigation & debridement Interval history: 52-year-old obese male with a past medical history significant for hypertension, anxiety/depression, and alcohol abuse who presented to the hospital for elective surgery. The patient underwent right total knee arthroplasty, irrigation, and debridement with polyliner exchange and antibiotic bead placement. Postoperatively, after anesthesia induction, he briefly went into PEA arrest requiring cardiopulmonary resuscitation with ROSC. He was extubated overnight and this morning he was alert, oriented x3. Family were present at the bedside. The patient denies chest pain, shortness of breath or palpitati ons. There were concerns for mild alcohol withdrawal as he was placed on CIWA protocol and did receive Ativan. The hospitalist service was asked to consult to help medically manage the patient. 10/13: The patient was moved out the ICU to [facility]. He remains quite somnolent as he needs IV Ativan for CIWA protocol. He is receiving beer as well. 10/14: Had a lengthy discussion with RN, and with rn case manager hospice regarding the patient's behavior. He did sign the AMA form however was quite confused. He was verbally abusive, shouting and yelling yesterday. The patient receives oxycodone, alcohol, and benzodiazepine subsequently by staffing and then becomes quite sedated and somnolent. This morning he was difficult to wake up. I recommended stopping or decreasing IV Ativan. 10/15 Patient states poor sleep but otherwise no new complaints other than headache. Leukocytosis mildly improved today. Anemia stable. Hyponatremia improved. 10/16 Patient complains of poor sleep. Complains of headaches and had some nausea this morning. Continue wound care and placement options. Continue IV an tibiotics 10/17 Patient slept great last night he says. Patient cooperative with cares. No acute events overnight 10/[address] unless he is off alcohol. Started holding alcohol yeste rday and will monitor him closely if he does not have any symptoms of withdrawal and then plan is to keep him off alcohol so he can go to a rehab with PICC line. Patient seems to be in better spirits today. No overnight event or new complaints other than he had a poor sleepAnd complains of headache at times. Multiple discussions between surgeon in fact infectious disease regarding plan. Ideally we would be IV vancomycin at nursing facility for the duration of the treatment. If the facility cannot take the patient for the entire course which could consider dalbavancin for the remainder of the treatment. As far as oral Zyvox this will could be a consideration after at least 3 to 4 weeks of IV antibiotics. 10/19 Patient seems to be feeling well today. No overnight event or new complaints. Patient cooperative. No issues with withdrawal at this time. Monitoring closely. 10/20 Patient states he is feeling pretty good today. No overnight event or new complaints. Did lose IV site yesterday but a new one placed. Still trying to find placement for him for optimal treatment. No signs of alcohol withdrawal at this point. Continue to monitor closely 10/21 Poor sleep. No other complaints. Patient seems to be doing well off alcohol. 10/22: Afebrile overnight. WBC 11.4. Patient is still complaining of 10 out of 10 right knee pain. Patient agrees to go to SNF to finish 4 additional weeks of IV antibiotics. Continue IV antibiotics with vancomycin and rifampin for the time being. We will work with rn case manager hospice for SNF placement. PICC line insertion for IV antibiotics. 10/23: Patient accepted by LTAC in [facility] for long-term IV antibiotics therapy. Patient is complaining of 10 out of 10 right knee pain. Patient agrees to go to SNF to finish 4 additional weeks of IV antibiotics. Continue IV antibiotics with vancomycin and rifampin for the time being while a waiting transportation to LTAC. PICC line to be inserted once patient got transferred to LTAC. Constitutional Vitals: Vital Signs Temp Pulse Resp BP Pulse Ox O2 Del Method O2 Flow Rate 36.9 C 91 H 18 166/93 94 Room Air 0 10/23/22 08:00 10/23/22 08:00 10/23/22 08:00 10/23/22 08:00 10/23/22 08:00 10/23/22 08:00 10/19/22 12:00 Period Temp Pulse Resp BP Sys/Ward Pulse Ox O2 Del Method O2 Flow Rate Last 24 Hr 36.8 C-37.0 C 76-93 16-20 119-166/70-93 92-94 Room Air-Room Air Intake and Output 10/22/22 10/23/22 10/23/22 19:59 03:59 11:59 Intake Total 840 500 Output Total 400 750 Balance 840 100 -750 Weight 103.929 kg Intake & Output: Intake & Output 10/22/22 10/23/22 10/23/22 19:59 03:59 11:59 Intake Total 840 500 Output Total 400 750 Balance 840 100 -750 Weight 103.929 kg Intake: IV 600 500 Rifampin 600 mg In Sodium 100 Chloride 0.9% 100 ml @ 100 mls/ hr IV Q24H [facility] Rx#:[id number] Vancomycin 2,000 mg In Sodium 500 500 Chloride 0.9% 500 ml @ 250 mls/ hr IV Q12H [facility] Rx#:[id number] Oral 240 Output: Void Amount 400 750 Other: Meal Dinner Percent of Meal Consumed 100% Feeding Ability Independent Urine Appearance Clear Clear Clear Urine Color Yellow Yellow Yellow # Voids 3 Head Head exam: Present atraumatic and normal inspection Eye Eye exam: Present normal appearance ENT ENT exam: Present mucous membranes moist, normal exam and normal external ear exam Neck Neck exam: Present normal inspection Respiratory Respiratory exam: Present normal respiratory exam Cardiovascular Cardiovascular exam: Present normal rate and rhythm GI/Abdominal GI/Abdominal exam: Present normal bowel sounds Extremities Exam Extremities exam: Present tenderness; Absent full ROM or normal inspection Additional comments: Right knee covered by surgical dressing Back Exam Back exam: Present normal inspection Neurological Exam Neurological exam: Present alert and oriented X3 Skin Skin exam: Present intact and warm OBJ DATA Labs 10/23/22 05:30 10/23/22 05:30 Labs: Abnormal Lab Results 10/23/22 10/23/22 10/22/22 05:30 05:30 12:12 WBC RBC 3.73 L Hgb 10.7 L Hct 33.6 L RDW Plt Count 850 H 883 H MPV 8.6 L Immature Gran % (Auto) Neut % (Auto) Lymph % (Auto) 13.3 L Lymph # (Auto) 1.41 L Immature Gran # Absolute Neutrophils 8.27 H Creatinine 0.6 L Glucose 110 H Alkaline Phosphatase 120 H C-Reactive Protein Albumin 3.1 L Globulin 4.9 H Albumin/Globulin Ratio 0.6 L 10/22/22 10/22/22 08:05 08:04 WBC 11.4 H RBC 3.88 L Hgb 11.2 L Hct 35.1 L RDW 14.7 H Plt Count 907 H* MPV 8.7 L Immature Gran % (Auto) 0.6 H Neut % (Auto) 79.7 H Lymph % (Auto) 12.0 L Lymph # (Auto) 1.36 L Immature Gran # 0.07 H Absolute Neutrophils 9.07 H Creatinine Glucose 147 H Alkaline Phosphatase C-Reactive Protein 8.60 H Albumin Globulin 4.9 H Albumin/Globulin Ratio 0.7 L Meds: Medications Acetaminophen (Acetaminophen 500 Mg Tablet) 1,000 mg PO TID [facility]; Protocol Last Admin: 10/23/22 08:36 Dose: 1,000 mg Albuterol Sulfate (Albuterol Sulfate 60 Puff Inhaler) 2 puff IH Q4HP PRN PRN Reason: for dyspnea Albuterol/Ipratropium (Ipratropium/Albuterol 3 Ml Ampul.Neb) 3 ml NEB Q6HP [facility] Aspirin (Aspirin 81 Mg Tab.Chew) 81 mg CHEWED BID [facility] Last Admin: 10/23/22 08:38 Dose: 81 mg Bisacodyl (Bisacodyl 10 Mg Supp.Rect) 10 mg MT Q2-3DAYS PRN PRN Reason: Constipation Diphenhydramine HCl (Diphenhydramine 25 Mg Capsule) 25 mg PO HSP PRN PRN Reason: Insomnia Last Admin: 10/21/22 21:16 Dose: 25 mg Docusate Sodium (Docusate Sodium 100 Mg Capsule) 100 mg PO BID [facility] Last Admin: 10/23/22 08:38 Dose: 100 mg Duloxetine HCl (Duloxetine 30 Mg Capsule) 30 mg PO QDAY [facility] Last Admin: 10/23/22 08:37 Dose: 30 mg Gabapentin (Gabapentin 300 Mg Capsule) 300 mg PO HS [facility] Last Admin: 10/22/22 20:41 Dose: 300 mg Heparin Sodium (Porcine) (Heparin Flush 10 Units/Ml 5 Ml Syringe) 2 ml IV Q12 [facility] Last Admin: 10/23/22 08:40 Dose: Not Given Heparin Sodium (Porcine) (Heparin Flush 10 Units/Ml 5 Ml Syringe) 2 ml IV Q12 [facility] Last Admin: 10/23/22 08:41 Dose: Not Given Hydrochlorothiazide (Hydrochlorothiazide 12.5 Mg Capsule) 12.5 mg PO DAILY [facility] Last Admin: 10/23/22 08:38 Dose: 12.5 mg Hydroxyzine HCl (Hydroxyzine 25 Mg Tablet) 50 mg PO [facility] Last Admin: 10/22/22 20:40 Dose: 50 mg Rifampin 600 mg/ Sodium (Chloride) 100 mls @ 100 mls/hr IV Q24H [facility]; Protocol Last Admin: 10/23/22 09:53 Dose: 100 mls/hr Vancomycin HCl 2,000 mg/ (Sodium Chloride) 500 mls @ 250 mls/hr IV Q12H [facility] Last Admin: 10/23/22 09:53 Dose: 250 mls/hr Lisinopril (Lisinopril 20 Mg Tablet) 20 mg PO DAILY [facility] Last Admin: 10/23/22 08:38 Dose: 20 mg Magnesium Hydroxide (Magnesium Hydroxide 30 Ml Oral.Susp) 30 ml PO BIDP PRN PRN Reason: Constipation Melatonin (Melatonin 3 Mg Tablet) 3 mg PO QPM@1900 [facility] Last Admin: 10/22/22 19:55 Dose: 3 mg Methocarbamol (Methocarbamol 750 Mg Tablet) 750 mg PO TIDP PRN PRN Reason: Muscle Spasm Last Admin: 10/23/22 03:30 Dose: 750 mg Morphine Sulfate (Morphine 2 Mg/Ml Vial) 2 mg IV Q4HP PRN; Protocol PRN Reason: Per Pain Protocol Olanzapine (Olanzapine 5 Mg Tablet) 5 mg PO TIDP PRN PRN Reason: agitation Last Admin: 10/21/22 21:16 Dose: 5 mg Omeprazole (Omeprazole 20 Mg Capsule) 20 mg PO [facility] Last Admin: 10/23/22 08:37 Dose: 20 mg Ondansetron HCl (Ondansetron 4 Mg/2 Ml Vial) 4 mg IV Q4HP PRN; Protocol PRN Reason: Nausea And Vomiting Last Admin: 10/13/22 21:12 Dose: 4 mg Oxycodone HCl (Oxycodone Hcl 5 Mg Tablet) 10 - 20 mg PO Q4HP PRN; Protocol PRN Reason: Pain Last Admin: 10/23/22 09:40 Dose: 20 mg Polyethylene Glycol (Polyethylene Glycol 3350 17 Gm Packet) 17 gm PO DAILYP PRN PRN Reason: Constipation Senna (Sennosides 1 Tablet) 2 tab PO [facility] Last Admin: 10/22/22 20:40 Dose: 2 tab Sodium Biphosphate/Sodium Phosphate (Fleets Adult Enema) 1 dose MT Q3-4DAYS PRN PRN Reason: Constipation Sodium Chloride (0.9 % Sodium Chloride 10 Ml Syringe) 10 ml IV Q8 [facility] Last Admin: 10/23/22 05:24 Dose: 10 ml Sodium Chloride (0.9 % Sodium Chloride 10 Ml Syringe) 10 ml IV Q12 [facility] Last Admin: 10/23/22 09:59 Dose: Not Given Sodium Chloride (0.9 % Sodium Chloride 10 Ml Syringe) 10 ml IV UD PRN PRN Reason: FLUSH Sodium Chloride (0.9 % Sodium Chloride 10 Ml Syringe) 10 ml IV Q12 [facility] Last Admin: 10/23/22 10:00 Dose: Not Given Sodium Chloride (0.9 % Sodium Chloride 10 Ml Syringe) 10 ml IV UD PRN PRN Reason: FLUSH Throat Lozenges (Benzocaine/Menthol 1 Lozenge) 1 lozenge PO PRN PRN PRN Reason: Sore Throat Vancomycin HCl (Vancomycin Per Pharmacy) 1 order IV UD [facility]; Protocol A/P Assessment and plan (1) Methamphetamine abuse: Status: Acute (2) Infection of prosthetic right knee joint: Status: Acute (3) Alcohol withdrawal: Status: Acute (4) Septic arthritis of knee, right: Status: Acute (5) Anemia, normocytic normochromic: Status: Acute Narrative A/P Narrative: Assessment and Plans: 1. Right septic prosthetic knee: Wound culture: MRSA Dr. Rivera is managing Patient agrees to go to LTAC for 4 additional week of IV antibiotics, will work with rn case manager hospice for placement PICC insertion to be done once patient got transferred to LTAC cbc w/ auto diff in the morning to trend WBC Vancomycin Rifampin Robaxin Oxycodone Morphine IV PRN breakthrough pain 2. Anemia, normocytic normochromic: cbc w/ auto diff in the morning to trend H/H 3. Alcohol withdrawal: Stable, CIWA protocol discontinued, no more clinical signs of continued withdrawal 4. Methamphetamine abuse: Continue to monitor GI ppx: Prilosec DVT ppx: Aspirin Code status: Full Prognosis: Stable Disposition: inpatient med surg; LTAC Time Spent With Patient Time: Total time spent is greater than 50% in coordination of care (as documented) at patient's floor/unit and/or counseling patient: Subsequent: Total time with patient: 35 - 49 minutes QUALITY VTE Deep Vein Thrombosis/Pulmonary Embolism Present on Admission: No
[2022-10-23] MEDS: MELATONIN 3 MG TABLET PO SCH (19:10)
[2022-10-23] MEDS: hydrOXYzine 25 MG TABLET PO SCH (20:23)
[2022-10-23] MEDS: SENNOSIDES 1 TABLET PO SCH (20:24)
[2022-10-23] MEDS: GABAPENTIN 300 MG CAPSULE PO SCH (20:24)
[2022-10-24] MEDS: VANCOMYCIN 2,000 MG in 0.9 % SODIUM CHLORIDE 500 ML IV SCH (01:03)
[2022-10-24] MEDS: oxyCODONE IR 5 MG TABLET PO PRN ×3 (01:03→09:08)
[2022-10-24] MEDS: METHOCARBAMOL 750 MG TABLET PO PRN (03:33)
[2022-10-24] MEDS: 0.9 % SODIUM CHLORIDE 10 ML SYRINGE IV SCH ×3 (05:30→09:16)
[2022-10-24 06:33] LABS: Basophils # (Auto) 0.06 K/mcL (0.00-0.30); Basophils % (Auto) 0.6 % (0.0-2.0); Eosinophils # (Auto) 0.22 K/mcL (0.00-0.70); Eosinophils % (Auto) 2.2 % (0.0-7.0); Hematocrit 33.4 % (40.1-51.0); Hemoglobin 10.6 g/dL (13.7-17.5); Lymphocytes # (Auto) 1.29 K/mcL (1.50-4.80); Lymphocytes % (Auto) 13.1 % (15.5-49.0); Mean Cell Volume 90.3 fL (80.0-100.0); Mean Corpuscular HGB Conc 31.7 g/dL (31.0-36.0); Mean Platelet Volume 8.8 fL (8.8-12.5); Monocytes # (Auto) 0.57 K/mcL (0.10-0.90); Monocytes % (Auto) 5.8 % (1.0-12.0); Neutrophils % (Auto) 77.9 % (38.0-78.0); Platelet Count 801 K/mcL (140-440); Red Cell Distribution Width 14.4 % (11.5-14.5); WBC 9.8 K/mcL (4.5-11.0)
[2022-10-24 06:57] LABS: ALT/SGPT 12 U/L (<40); AST/SGOT 13 U/L (<40); Albumin 3.1 gm/dL (3.2-5.2); Albumin/Globulin Ratio 0.6 (1.0-2.3); Alkaline Phosphatase 122 U/L (39-117); Bilirubin,Total 0.2 mg/dL (0.1-1.0); Blood Urea Nitrogen 12 mg/dL (6-20); Calcium 9.8 mg/dL (8.6-10.4); Carbon Dioxide 24 mmol/L (22-30); Chloride 96 mmol/L (96-108); Globulin 4.8 gm/dL (2.2-3.7); Glomerular Filtration Rate 125; Glucose 105 mg/dL (70-105)
[2022-10-24] MEDS: OMEPRAZOLE 20 MG CAPSULE PO SCH (07:00)
[2022-10-24] MEDS: ACETAMINOPHEN 500 MG TABLET PO SCH (08:04)
[2022-10-24] MEDS: GABAPENTIN 300 MG CAPSULE PO SCH (08:05)
[2022-10-24] MEDS: DULoxetine 30 MG CAPSULE PO SCH (08:05)
[2022-10-24] MEDS: ASPIRIN 81 MG TAB.CHEW CHEWED SCH (08:05)
[2022-10-24] MEDS: LISINOPRIL 20 MG TABLET PO SCH (08:05)
[2022-10-24] MEDS: DOCUSATE SODIUM 100 MG CAPSULE PO SCH (08:05)
[2022-10-24] MEDS: HYDROCHLOROTHIAZIDE 12.5 MG CAPSULE PO SCH (09:16)
== END 2022-10-24 09:15 | DRG 485 ==
LOC: ED 12:51 → MEDSUR 18:49 → ICU 10-11 00:21 → MEDSUR 10-12 22:37
PROVIDERS: ADMIT Orthopaedic Surgery; ATTEND Orthopaedic Surgery